=== PATIENT | male | born 1975 | race Two or more races ===

== ENCOUNTER 2025-06-03 12:12 | Inpatient (IN) | payer MEDICAID, SELFPAY ==
[2025-06-03] VITALS (12 sets, daily range): BP systolic 109–152; BP diastolic 73–111; PULSE 109–129; RESP 16–26; TEMP 37.6–39.3; O2SAT 95–100; BMI 24.3
--- NOTE | 2025-06-03 12:42 | XR_ITS ---
Examination: Duplex scan of the lower extremity, unilateral right Date and time of exam: 06/03/2025, 1:04 p.m. Technique: Duplex scan of the extremity veins using B-mode/grayscale imaging and Doppler spectral analysis and color flow Attention is directed to internal echogenicity, compression and augmentation involving these veins, color flow assessment, spectral analysis Indication: Right leg swelling for 4 days COMPARISON: None Findings: Major deep venous structures in the extremity demonstrate normal course and caliber. There is no evidence of deep vein thrombosis. Normal color flow and spectral analysis Impression: Negative for DVT..
[2025-06-03 13:05] LABS: Lactate (Lactic Acid) 3.1 mMol/L (0.4-2.0)
--- NOTE | 2025-06-03 13:14 | EDNOTE_ITS ---
<Statement entered by Pau Damon MD - 06/05/25 17:54> I, Pau Damon MD, have reviewed the history, exam, and assessment of the patient. I have evaluated the patient independently and agree with the plan of care documented by [ ]. All diagnostic studies were reviewed and discussed. I confirm the diagnosis as documented by the Resident. I was present during the Medical Decision Making for this patient. The patient's plan of care was created between myself and the Resident and consistent with our discussion of the patient's case. ED Fever RME/HPI General Chief Complaint: Fever Stated Complaint: FEVER & R) CALF PAIN X 4 DAYS Time Seen by Provider: 06/03/25 12:19 Arrival date/time: 06/03/25 12:12 RME / HPI RME / HPI Narrative: Patient is a 50-year-old male with a past medical history of hypertension, diabetes mellitus, and history of cigarette [id number]-year history who presented to the emergency room via private car with a chief complaint of pyrexia at home and calf pain for the over 4 day. Patient denied recent travel history via airplane of drive. No history of PE or clots. Patient enied trauma to leg or forgiegn object. denied chest pain or shortness of breath. Patient noted to have a blister that became a small open wound at the 5th digit. Venous doppler Negative CT w/ contrast of right lower extremity Related Data Home Medications ?Medication ?Instructions ?Recorded ?Confirmed metformin 850 mg tablet 850 mg PO BIDWM #0 tabs 01/29 10/12 (Glucophage) Allergies Allergy/AdvReac Type Severity Reaction Status Date / Time No Known Allergies Allergy Verified 06/03/25 12:15 Review of Systems Review of Systems Narrative Review of Systems: General appearance: NO weight change, NO fatigue, NO weakness, NO fever, NO chills, NO night sweats, No cough Skin: NO rash, NO itching, NO sores, NO moles, pain to lower extremity HEENT: NO Trauma, NO nausea, NO vomiting, NO visual changes, NO blurry vision, NO double vision, NO tinnitus, NO vertigo, NO ear discharge, NO rhinorrhea, NO stuffiness, NO sneezing, NO allergy, NO epistaxis. NO Hoarseness, NO sore throat, NO swollen neck. Cardiac: NO Palpitations, NO dyspnea on exertion, NO orthopnea, NO paroxysmal nocturnal dyspnea, NO edema Respiratory: NO Shortness of Breath, NO Wheezing, NO Cough, NO Sputum, NO hemoptysis GI:NO appetite, NO nausea, NO vomiting, NO dysphagia, NO changes in bowel frequency, NO stool color, NO diarrhea, NO constipation, NO hemetemesis, NO hemorrhoids, NO melena, NO hematechezia, NO abdominal pain, NO jaundice Renal: NO frequency, NO hesitancy, NO urgency, NO hematuria, NO nocturia, NO incontinence MSK: NO muscle weakness, NO gout, NO arthritis, NO muscle stiffness Neuro: NO headaches, NO tremors, NO weakness, NO paralysis, NO seizures, NO loss of consciousness, NO numbness. Hem: NO anemia, NO easy bruising/bleeding, NO petechiae, NO purpura Endo: NO heat/cold intolerance, NO excessive sweating, NO polyuria, NO polydipsia, NO polyphagia, NO thyroid problems, Yes diabetes Pysch: NO mood, NO anxiety, NO depression Physical Exam Narrative Physical exam: General Appearance: Alert & Oriented X3, well-nourished male who is lying in bed in mild distress,secondary to pain at the right lower extremity with erythema and tender to touch. Pulses 3+ HEENT: Skull symmetrical and atraumatic. Conjunctivae pin and moist. Pupils equal, round, reactive to light and accommodation (PERRL). External ear without lesion or discharge. Straight, nares patient, mucosa pink, no discharge. No thyroid nodule appreciated. No cervical lymphadenopathy. Cardio: Normal Rate and Rhythm with S1 and S2 heart sounds. No murmurs or extra heart sounds auscultated. No bruits on carotid auscultation. Lungs: Symmetric with good expansion. Chest and back non-tender. Breath sounds vesicular without crackles, wheezing or rhonchi Abdomen: Non-tender, Non-distended, Normal Reactive Bowel Sounds Neuro: Alert, cooperative, oriented to person, place, and time. Speech clear. CN grossly intact. Upper motor strength 5/5 and Lower motor strength 5/5. Sensation intact. Course Quality Measures none Orders Category Date Time Status Bedside Blood Glucose NOW Care 06/03/25 14:[address] Screening NOW Care 06/03/25 13:[address] lower leg RT w con Stat Exams 06/03/25 13:51 Ordered US venous doppler LE RT Stat Exams 06/03/25 12:42 Completed XR chest 1V portable Routine Exams 06/03/25 13:45 Taken Alcohol, Urine Routine Lab 06/03/25 13:08 Ordered B-Type Natriuretic Peptide Stat Lab 06/03/25 12:45 Completed Blood Culture (Lab) Stat Lab 06/03/25 12:59 Received CBC Stat Lab 06/03/25 12:45 Completed Comprehensive Metabolic Panel Stat Lab 06/03/25 12:45 Completed Drug Screen,Urine Routine Lab 06/03/25 13:08 Ordered ESR [Sed Rate (ESR)] Routine Lab 06/03/25 13:47 Ordered LDH (Lactate Dehydrogenase) Stat Lab 06/03/25 12:45 Completed Lactate (Lactic Acid) Stat Lab 06/03/25 12:45 Results Lipase Stat Lab 06/03/25 12:45 Completed Magnesium Stat Lab 06/03/25 12:45 Completed Partial Thromboplastin Time Stat Lab 06/03/25 12:45 Completed Phosphorous Stat Lab 06/03/25 12:45 Completed Procalcitonin Stat Lab 06/03/25 12:45 Completed Prothrombin Time with INR Stat Lab 06/03/25 12:45 Completed Troponin I Stat Lab 06/03/25 12:45 Completed Urinalysis, C/S if Indicated Stat Lab 06/03/25 12:42 Ordered Acetaminophen Tab [Tylenol ES Tab] Med 06/03/25 12:42 Discontinued 1,000 mg PO X1 ONE INSULIN LISPRO (AdmeLOG) [HumaLOG] Med 06/03/25 14:00 Discontinued 5 unit SC X1 ONE Ringers Lactated 1000 ml [Lactated Ringers] 1,000 ml Med 06/03/25 14:00 Stop Req IV 999 mls/hr Sodium Chloride 0.9% 1000 ml [Ns] 2,121 ml Med 06/03/25 12:42 Discontinued IV 2,121 mls/hr Vancomycin Pharmacy to Dose Med 06/03/25 13:15 Active 1 each IV QDAY PRN Vancomycin/Ns 1 gm Ivpb 200 ml Med 06/03/25 13:30 Active IV X1 cefTRIAXone/D5w 1gm IV premix [Rocephin/D5w 1gm IV Med 06/03/25 12:42 Di scontinued premix] 1 gm in 50 ml IV X1 Vital Signs Vital signs: Vital Signs Temperature 102.7 F H 06/03/25 12:31 Pulse Rate 129 H 06/03/25 12:31 Respiratory Rate 18 06/03/25 12:31 Blood Pressure 111/73 06/03/25 12:31 Pulse Oximetry (%) 98 06/03/25 12:31 Oxygen Delivery Method Room Air 06/03/25 12:31 Fever Patient data External records reviewed:: [facility] previous records Clinical information provided by:: patient and family Social determinants that could affect healthcare access:: none Patient has the following chronic illnesses:: HTN and diabetes mellitus type 2 How is presenting disease/condition affected by chronic disease/condition?: exacerbated by Evaluation data The following diagnostics were reviewed and interpreted by me:: lab results Lab and/or radiology exams considered but not ordered:: none Interpretation Summary: Concern for sepsis secondary to cellulitis with end organ damage of MURIEL Medications / Prescriptions Medications or Prescriptions considered but not ordered:: none Medication administrations:: Medication Administration History Vancomycin/Sodium Chloride (Vancomycin/Ns 1 Gm Ivpb) 200 mls @ 120 mls/hr IV X1 ONE Stop: 06/03/25 15:09 Lactated Ringer's (Lactated Ringers) 1,000 mls @ 999 mls/hr IV .Q1H1M ONE Stop: 06/03/25 15:00 Pharmacy Consult (Vancomycin Pharmacy To Dose 1 Each Each) 1 each IV QDAY PRN PRN Reason: PROTOCOL Stop: 07/03/25 13:14 Discontinued Medications Acetaminophen (Acetaminophen 500 Mg Tablet) 1,000 mg PO X1 ONE Stop: 06/03/25 12:43 Last Admin: 06/03/25 13:20 Dose: 1,000 mg Documented By: CATHERINE Ceftriaxone Sodium/Dextrose (Rocephin/D5w 1gm Iv Premix) 1 gm in 50 mls @ 100 mls/hr IV X1 ONE Stop: 06/03/25 13:11 Last Admin: 06/03/25 13:19 Dose: 100 mls/hr Documented By: CATHERINE Sodium Chloride (Ns) 2,121 mls @ 2,121 mls/hr 30 ml/kg infuse over 60 min (2121 ml) IV .Q1H ONE Stop: 06/03/25 13:41 Last Admin: 06/03/25 13:19 Dose: 2,121 mls/hr Documented By: CATHERINE Insulin Human Lispro (Insulin Lispro (Admelog) 1 Unit/0.01 Ml Unit) 5 unit SC X1 ONE Stop: 06/03/25 14:01 as above Consultations Consultation(s) initiated? (list below): Yes Consultation #1 (Physician, Specialty, Details): Hospitalist Time: 14:07 Diagnosis Fever Differential Diagnosis: cellulitis, viral infection and sepsis Most likely diagnosis given after review of the tests above:: Sepsis secondary to cellulitis w/ end organ damage of MURIEL Admission Indicated Admission indicated?: indicated Admission Request Was there a request for admission?: Yes Admission Attestation Admission request attestation: Discussed case with Dr. Yanes from Hospitalist service regarding admission. Discussed patients ED course, exam findings, labs, and radiology results. The Hospitalist accepts to accept the patient for admission. Disposition Plan Disposition Plan: Admit Discharge Plan Plan Patient Disposition: Admit Acute Care w/in Hospital Prescriptions/Referrals Prescriptions/Med Rec: No Action metformin [Glucophage] 850 MG tablet 850 mg PO BIDWM Qty: 0 Referrals: Levar Miller MD [Primary Care Provider, Family Practice] - In 1 week Problem List Clinical Impression: Sepsis, Cellulitis, Fever, MURIEL (acute kidney injury) Patient/Caregiver Discharge Instructions Print Language: Jordanian Stand Alone Forms: Pamela Award Info., Patient Portal Info Letter
[2025-06-03 13:15] LABS: Basophils # (Auto) 0.1 Thou/mm3 (0.0-0.2); Basophils % (Auto) 0 % (0-2.5); Eosinophils # (Auto) 0.1 Thou/mm3 (0.0-0.5); Eosinophils % (Auto) 0 % (0-10); Hematocrit 42.6 % (41.0-53.0); Hemoglobin 15.9 g/dL (13.5-16.0); Immature Granulocytes Auto 0.97 Thou/mm3 (0.00-0.00); Lymphocytes # (Auto) 0.9 Thou/mm3 (1.0-4.8); Lymphocytes % (Auto) 3 % (10-50); Mean Corpuscular HGB Conc 37.3 g/dl (31.0-37.0); Mean Corpuscular Hemoglobin 31.6 pg (25.0-35.0); Mean Corpuscular Volume 85 fL (80-100); Monocytes # (Auto) 1.4 Thou/mm3 (0.0-0.8); Monocytes % (Auto) 5 % (0-12); Neutrophils # (Auto) 24.3 Thou/mm3 (1.8-7.7); Neutrophils % (Auto) 88 % (37-80); Nucleated Red Blood Cell # 0.00 Thou/mm3 (0.00-0.00); Nucleated Red Blood Cell % 0 /100 WBC (0); Platelet Count 191 Thou/mm3 (140-440); RDW Standard Deviation 43.4 fL (35.1-43.9); Red Blood Count 5.03 Miln/mm3 (4.50-5.90); White Blood Count 27.7 Thou/mm3 (3.8-10.6)
[2025-06-03] MEDS: cefTRIAXone/D5w 1gm IV premix 1 GM/50 ML BAG IV (13:19)
[2025-06-03] MEDS: SODIUM CHLORIDE 0.9% 1000 ML 2,121 ML 2121 ML IV (13:19)
[2025-06-03] MEDS: ACETAMINOPHEN 500 MG TABLET 1000 MG PO (13:20)
[2025-06-03 13:23] LABS: INR 1.1 (0.9-1.3); Partial Thromboplastin Time 33.9 Seconds (22.0-36.0); Prothrombin Time 11.2 Seconds (9.0-12.2)
[2025-06-03 13:27] LABS: B-Type Natriuretic Peptide 306 pg/mL (0-100)
--- NOTE | 2025-06-03 13:45 | XR_ITS ---
CLINICAL INDICATION: sepsis alert TECHNIQUE: XR chest 1V portable, 06/03/2025 at 2:53 p.m. COMPARISON: Chest radiographs 02/10/2014 FINDINGS: The cardiomediastinal silhouette larger compared to prior radiographs, in part due to magnification by the portable technique. No evidence for acute congestive heart failure. Mild elevation of the right hemidiaphragm noted. No airspace opacities suggestive of pneumonia. No mass detected. No pleural effusion or pneumothorax. No acute osseous abnormality detected. IMPRESSION: No radiographic evidence for pneumonia or other acute cardiopulmonary abnormality. - This report was generated utilizing speech recognition software. -
[2025-06-03 13:54] LABS: Alanine Aminotransferase 22 U/L (10-49); Albumin, Serum 3.7 gm/dL (3.5-5.0); Albumin/Globulin Ratio 1.5 (1.2-2.2); Alkaline Phosphatase 124 U/L (46-116); Anion Gap 11 (7-16); Aspartate Amino Transferase 23 U/L (0-34); BUN/Creatinine Ratio 17 Ratio (12-20); Bilirubin,Total 1.9 mg/dL (0.3-1.2); Blood Urea Nitrogen 24 mg/dL (9-23); Calcium 8.4 mg/dL (8.3-10.6); Calcium (Corrected) 8.6 mg/dL (8.5-10.1); Carbon Dioxide 20.8 mMol/L (20.0-31.0); Chloride 93 mMol/L (98-107); Creatinine (Component) 1.4 mg/dL (0.6-1.3); Estimated Creatinine Clearance 64.5 mL/min (>60); Globulin 2.4 gm/dL (2.3-3.5); LDH (Lactate Dehydrogenase) 237 U/L (120-246); Lipase 25 U/L (12-53); Magnesium 1.7 mg/dL (1.6-2.6); Osmolality,Calculated 276 (275-295); Phosphorous 2.4 mg/dL (2.4-5.1); Potassium 4.7 mMol/L (3.4-5.1); Sodium 125 mMol/L (136-145); Total Protein 6.1 gm/dL (5.7-8.2); eGFR > 60 See Note
[2025-06-03 13:55] LABS: Glucose 477 mg/dL (74-106)
[2025-06-03 13:56] LABS: Troponin I 0.188 ng/mL (0.0-0.045)
[2025-06-03 13:57] LABS: Procalcitonin 93.12 ng/ml (0.0-0.49)
[2025-06-03] MEDS: VANCOMYCIN/NS 1 GM IVPB 200 ML IV (14:05)
[2025-06-03] MEDS: INSULIN LISPRO (AdmeLOG) 1 UNIT/0.01 ML UNIT 5 UNIT SC (14:15)
--- NOTE | 2025-06-03 14:43 | EKG_ITS ---
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1975 Requested By: Haider Clark Order Number: [id number] Reading MD: Haider Clark Measurements Intervals [place] Rate: 118 P: 80 ME: 136 QRS: -67 QRSD: 115 T: 103 QT: 399 QTc: 559 Interpretive Statements SINUS TACHYCARDIA POSSIBLE LEFT ATRIAL ENLARGEMENT [-0.1mV P-WAVE IN V1/V2] LOW QRS VOLTAGE IN PRECORDIAL LEADS [QRS DEFLECTION < 1.0 mV IN CHEST LEADS] RIGHT BUNDLE BRANCH BLOCK [120+ ms QRS DURATION, UPRIGHT V1, 40+ ms S IN I/aVL/V4/V5/V6] LEFT ANTERIOR FASCICULAR BLOCK [QRS AXIS <= -45, QR IN I, RS IN II] POSSIBLE ANTERIOR MYOCARDIAL INFARCTION , PROBABLY OLD [30 ms Q WAVE IN V3/V4, OR R < 0.2 mV IN V4] No previous ECG available for comparison /store/S0/[id number]/[id number].pdf
[2025-06-03 14:45] LABS: Sed Rate (ESR) 8 mm/hr (0-15)
[2025-06-03] MEDS: ONDANSETRON INJ 2 MG/ML INJ 2 ML 4 MG IVP (15:06)
[2025-06-03] MEDS: HYDROmorphone INJ 2 MG/ML VIAL 0.4 MG IVP ×2 (15:07→20:58)
[2025-06-03] MEDS: HEPARIN SOD INJ 5000 UNIT/ML VIAL SC ×2 (15:11→22:26)
--- NOTE | 2025-06-03 15:12 | ESHP_ITS ---
<Statement entered by Parth Robison MD - 06/03/25 17:09> 50-year-old male with significant past medical history of diabetes mellitus, insulin-dependent, recently diagnosed with bladder tumor, unsure of the diagnosis presented to the hospital with chief complaints of swelling and redness in the right lower extremity with fever since 3 days. Patient reported that he was absolutely normal 3 days ago, then developed sudden onset of swelling, pain and redness in the right lower extremity and fever. Took Tylenol but the pain and the fever did not subside and persisted for which patient came to the hospital for further management. Also reported that he is having bladder incontinence since last 4 days. In the ED, patient noted to have temperature of 102.2 ?F, noted to have leukocytosis, WBC 27.7, sodium 125, chloride 93, BUN 24, creatinine 1.4, glucose 277, lactate 3.1, total bilirubin 1.9, troponin 0.188, procalcitonin 93.12, corrected sodium is 134. Patient is admitted in the hospital for sepsis secondary to right lower extremity cellulitis, uncontrolled diabetes mellitus, lactic acidosis, MURIEL. Patient was given 2.1 L of bolus fluid in the ED per sepsis protocol, started on maintenance IV fluids, started on Zosyn and doxycycline. CT of lower extremity is ordered and is negative for osteomyelitis and soft tissue abscess. Doppler of the lower extremities negative for DVT. A bladder ultrasound was done that showed abnormal diffuse bladder wall thickening that could represent a neurogenic bladder or sequela of infection versus diffuse infiltrative neoplasm. Will recommend patient to follow-up on outpatient basis. I have personally seen and examined the patient, agree with residents assessment and plan Patient plan of care was discussed with the attending physician, Dr. Demetra Robison, PGY2 Documentation for date of: 06/03/25 HPI History of Present Illness Chief complaint: Right leg pain History of present illness: 50-year-old male with a history of type 2 diabetes mellitus and hypertension presents with right lower leg pain, redness, and swelling for the past 4 days. The patient reports the area began as a blister on the right fifth toe that developed around the same time as the pain. He denies any trauma, recent travel, or insect bites. He describes the pain as worse with standing or walking. No drainage noted today, though there was some pus initially. He reports fevers and chills at home over the same period. No nausea, vomiting, chest pain, or abdominal pain. He denies dizziness or confusion. No history of prior similar infections or hospitalizations. He has type 2 diabetes, managed with Basaglar 60 units twice daily, though he misses doses occasionally and is unsure of his other medications. No recent antibiotic use. Denies recent alcohol or drug use; quit smoking 6 years ago after a [id number] history. In the ED, he was febrile (102.7?F), tachycardic (HR 129), and mildly hypotensive but responsive to fluids. WBC 27.7, lactate 3.12, sodium 125 (corrected 134), glucose 407, creatinine 1.4, and troponin 0.188. Venous Doppler negative for DVT. Blood cultures were drawn; patient received fluids, Tylenol, and empiric IV antibiotics for sepsis secondary to cellulitis. ROS: Constitutional: +fever, +chills, no weight loss Skin: +right leg redness, swelling, warmth, no drainage today HEENT: No headache, vision, or hearing changes Cardiac: No chest pain or palpitations Respiratory: +occasional nocturnal SOB, no cough GI: No nausea, vomiting, or abdominal pain : No dysuria or hematuria, normal urine output Neuro: No weakness, numbness, or confusion Endocrine: +poorly controlled diabetes, missed insulin doses Psych: +anxiety Past Medical History: * Type 2 diabetes mellitus (poorly controlled) * Hypertension Past Surgical History: * Remote left foot surgery (details unclear) Medications: * Basaglar (insulin glargine) 60 units BID * Unknown blood pressure medication * Pending med rec's Allergies: * No known drug allergies Social History: * Former smoker (42 pack-years, quit 6 years ago) * Denies current alcohol or illicit drug use (remote meth use years ago) * Lives independently at home Family History: * Non-contributory Exam Vital Signs Temp Pulse Resp BP Pulse Ox O2 Del Method 102.5 F H 109 H 18 138/98 H 100 Room Air 06/03/25 14:46 06/03/25 14:59 06/03/25 14:59 06/03/25 14:46 06/03/25 14:59 06/03/25 14:46 Narrative Exam General: Alert, oriented, appears uncomfortable but in no acute distress HEENT: Mucous membranes moist, no JVD or adenopathy Heart: Tachycardic, regular rhythm, no murmurs, rubs, or gallops Lungs: Clear to auscultation bilaterally Abdomen: Soft, non-tender, non-distended, normoactive bowel sounds Extremities: * Right lower leg: erythematous, warm, and tender from mid-calf to ankle * No fluctuance, crepitus, or drainage; small healed blister at 5th toe * Pulses palpable, no cyanosis * Left leg normal * Right arm with abrasion and mild pus leak Neuro: CN II?XII intact, motor and sensory grossly intact Skin: Erythematous area as above, borders marked for monitoring Psych: Calm, cooperative, appropriate affect Results: Labs 06/03/25 12:45 06/03/25 12:45 Labs: Short CBC 06/03/25 Range/Units 12:45 WBC 27.7 H (3.8-10.6) Thou/mm3 Hgb 15.9 (13.5-16.0) g/dL Hct 42.6 (41.0-53.0) % Plt Count 191 (140-440) Thou/mm3 BMP 06/03/25 12:45 Sodium 125 L Potassium 4.7 Chloride 93 L Carbon Dioxide 20.8 BUN 24 H Creatinine 1.4 H Glucose 477 H* Calcium 8.4 Cardiac Enzymes 06/03/25 Range/Units 12:45 Troponin I 0.188 H* (0.0-0.045) ng/mL Liver Function 06/03/25 Range/Units 12:45 Total Bilirubin 1.9 H (0.3-1.2) mg/dL AST 23 (0-34) U/L ALT 22 (10-49) U/L Alkaline Phosphatase 124 H (46-116) U/L Albumin 3.7 (3.5-5.0) gm/dL Quality Measures Quality Measures VTE prophylaxis Medications Home Medications and Allergies Home Medications ?Medication ?Instructions ?Recorded ?Confirmed ?Type metformin 850 mg tablet 850 mg PO BIDWM #0 tabs 01/29 314 History (Glucophage) Allergies Allergy/AdvReac Type Severity Reaction Status Date / Time No Known Allergies Allergy Verified 06/03/25 12:15 Visit Medications Acetaminophen (Acetaminophen 325 Mg Tablet) 650 mg PO Q6H PRN PRN Reason: Fever >100.4 or Pain 1-3 Stop: 07/03/25 14:36 Dextrose (Dextrose 50%-Water Inj 50 Ml Syringe) 25 ml IV Q15MIN PRN PRN Reason: BG 50-70 responsive npo pt Stop: 07/03/25 14:47 Dextrose (Dextrose 50%-Water Inj 50 Ml Syringe) 50 ml IV Q15MIN PRN PRN Reason: BG <50 OR BG <70 & pt unresponsive Stop: 07/03/25 14:47 Glucagon (Glucagon Inj 1 Mg Vial) 1 mg IM Q15MIN PRN PRN Reason: BG <70, and no IV access Heparin Sodium (Porcine) (Heparin Sod Inj 5000 Unit/Ml Vial) 5,000 unit SC Q8HR ERICH Stop: 06/17/25 14:59 Hydromorphone HCl (Hydromorphone Inj 2 Mg/Ml Vial) 0.4 mg IVP Q4H PRN PRN Reason: PAIN SCALE 7-10 (Severe Stop: 06/08/25 14:42 Last Admin: 06/03/25 15:07 Dose: 0.4 mg Sodium Chloride (Ns) 1,000 mls @ 75 mls/hr IV .[id number] ERICH Stop: 07/03/25 14:44 Doxycycline Hyclate 100 mg/ (Sodium Chloride) 100 mls @ 100 mls/hr IV BID ERICH Stop: 06/10/25 20:59 Piperacillin Sod/Tazobactam (Sod 4.5 gm/ Sodium Chloride) 100 mls @ 25 mls/hr IV Q8HR ERICH; Protocol Stop: 06/10/25 21:59 Piperacillin Sod/Tazobactam (Sod 4.5 gm/ Sodium Chloride) 100 mls @ 200 mls/hr IV X1 ONE; Protocol Stop: 06/03/25 15:44 Insulin Degludec (Insulin Degludec 5 Unit/0.05 Ml (Per 5 Units)) 20 unit SC [facility] Stop: 07/03/25 20:59 Insulin Human Lispro (Insulin Lispro (Admelog) 1 Unit/0.01 Ml Unit) 0 unit SC AC ERICH; Protocol Stop: 07/03/25 16:59 Ondansetron HCl (Ondansetron Inj 2 Mg/Ml Inj 2 Ml) 4 mg IVP Q6H PRN; Protocol PRN Reason: NAUSEA OR VOMITING Stop: 07/03/25 14:36 Last Admin: 06/03/25 15:06 Dose: 4 mg Oxycodone/Acetaminophen (Oxycodone/Apap 5/325 Tablet) 1 tab PO Q6H PRN PRN Reason: PAIN SCALE 4-6 (Moderate Stop: 06/08/25 14:42 Pantoprazole Sodium (Pantoprazole 40 Mg Tablet) 40 mg PO QDAY ERICH Stop: 07/04/25 08:59 Sennosides (Senna Tablet) 1 tab PO QDAY PRN; Protocol PRN Reason: constipation Stop: 07/03/25 14:36 Discontinued Medications Acetaminophen (Acetaminophen 500 Mg Tablet) 1,000 mg PO X1 ONE Stop: 06/03/25 12:43 Last Admin: 06/03/25 13:20 Dose: 1,000 mg Ceftriaxone Sodium/Dextrose (Rocephin/D5w 1gm Iv Premix) 1 gm in 50 mls @ 100 mls/hr IV X1 ONE Stop: 06/03/25 13:11 Last Infusion: 06/03/25 15:05 Dose: Infused Sodium Chloride (Ns) 2,121 mls @ 2,121 mls/hr 30 ml/kg infuse over 60 min (2121 ml) IV .Q1H ONE Stop: 06/03/25 13:41 Last Infusion: 06/03/25 15:05 Dose: Infused Vancomycin/Sodium Chloride (Vancomycin/Ns 1 Gm Ivpb) 200 mls @ 120 mls/hr IV X1 ONE Stop: 06/03/25 15:09 Last Admin: 06/03/25 14:05 Dose: 120 mls/hr Lactated Ringer's (Lactated Ringers) 1,000 mls @ 999 mls/hr IV .Q1H1M ONE Stop: 06/03/25 15:00 Vancomycin/Sodium Chloride (Vancomycin/Ns 1 Gm Ivpb) 200 mls @ 120 mls/hr IV Q12H ERICH Stop: 06/10/25 21:59 Insulin Human Lispro (Insulin Lispro (Admelog) 1 Unit/0.01 Ml Unit) 5 unit SC X1 ONE Stop: 06/03/25 14:01 Last Admin: 06/03/25 14:15 Dose: 5 unit Morphine Sulfate (Morphine Sulf Inj 4 Mg/Ml Vial) 2 mg IVP X1 ONE Stop: 06/03/25 15:07 Pharmacy Consult (Vancomycin Pharmacy To Dose 1 Each Each) 1 each IV QDAY PRN PRN Reason: PROTOCOL Stop: 07/03/25 13:14 Assessment & Plan Plan 50M with PMH of T2DM and HTN presenting with sepsis secondary to right lower extremity cellulitis. Course complicated by hyperglycemia (glucose 407), hyponatremia (corrected 134), MURIEL (Cr 1.4), lactic acidosis (3.12), and elevated troponin likely due to demand ischemia. CT leg consistent with cellulitis without abscess or osteomyelitis. Bladder wall thickening noted incidentally likely infectious or neurogenic, but will monitor and correlate with UA. # Sepsis secondary to cellulitis RLE cellulitis without abscess or osteomyelitis; meets SIRS criteria with fever, tachycardia, leukocytosis, and elevated lactate. Plan: * Start Zosyn 4.5 g IV q6h * Add Doxycycline 100 mg PO/IV BID for MRSA/atypical coverage * Trend lactate q4h until <2.0 * Monitor vitals q4h, maintain MAP >65 * Repeat CBC, BMP, and LFTs daily * Follow-up blood cultures * Wound care consult # Hyponatremia Na 125 likely pseudohyponatremia from hyperglycemia; corrected Na 134. Plan: * Manage hyperglycemia as below * Recheck BMP in AM # Type 2 Diabetes Mellitus # Hyperglycemia Glucose 407; poor outpatient adherence and unclear regimen. Plan: * Hold Basaglar (home insulin) * Start Glargine 30 units SQ nightly will adjust accordingly tomorrow morning * Insulin lispro sliding scale ACHS * POC glucose AC/HS * Diabetic diet (carb-controlled) # Acute Kidney Injury Cr 1.4; likely pre-renal due to sepsis/dehydration. Plan: * Continue NS 75 mL/hr maintenance * Avoid nephrotoxins and NSAIDs * Monitor I&O and daily BMP # Lactic Acidosis Lactate 3.12 from sepsis. Plan: * Continue fluids, antibiotics, and infection source control * Recheck lactate q4h until <2.0 # Elevated Troponin Likely demand ischemia from sepsis/tachycardia; no chest pain. Plan: * Trend troponin q4h ? 2 * EKG if PRN symptoms * Monitor on telemetry # Bladder Wall Thickening Incidentally noted on imaging; possibly inflammatory or neurogenic. Plan: * UA and urine culture to rule out infection * Monitor for urinary retention * Consider outpatient urology referral after sepsis resolves # Hypertension Chronic, stable, home regimen unclear. Plan: * Hold home antihypertensives until medication reconciliation * Resume once verified Health Maintenance: Diet: Carbohydrate-controlled (diabetic) Fluids: NS 75 mL/hr DVT Prophylaxis: Heparin 5,000 U SQ q8h GI Prophylaxis: PPI Code Status: Full Code Disposition: Admit to telemetry for sepsis management and close glucose monitoring ----- Plan discussed with attending physician Dr. Mccrary and senior resident Dr. Ricki Clark MD PGY-1 Internal Medicine Attending Provider Attestation/Addendum I have seen and examined the patient. I was physically present for the william portions of the services provided including history, physical exam, diagnosis, treatment plans and orders. I agree with assessment and plan of care as documented by residents. After examination of the patient and review of the clinical data I feel that this patient needs admission to the hospital for further treatment/evaluation. Even though this this note was carefully revised there may still be minor errors in door installer due to voice recognition software. Jessica Mccrary MD
[2025-06-03] MEDS: SODIUM CHLORIDE 0.9% 1000 ML 1,000 ML 75 ML IV (15:13)
[2025-06-03 15:26] LABS: Collection Type, Urine Clean Catch; Squamous Epithelial Cell,Urine 0 /hpf (0-5)
--- NOTE | 2025-06-03 15:46 | XR_ITS ---
Examination: CT right lower extremity, without contrast. 2-D sagittal reconstructions. 2-D coronal reconstructions. 3-D reconstructions. Date and time of exam: June 03, 2025, 1535 hours INDICATIONS: Right lower leg pain and swelling today CTDI: vol (mGy): 10.2 DLP: (mGycm): 1046 Technique: Multiple 1.25 mm axial sections of the right lower leg without contrast have been obtained. 2-D sagittal and coronal reconstructions have been obtained. 3-D reconstructions have been obtained. Low dose protocols were performed. One or more of the following dose reduction techniques were used; automated exposure control, adjustment of the mA and/or KV according to patient size, use of iterative reconstruction technique. Findings: Edema in the subcutaneous fatty tissue surrounding the thigh, more severe lateral to the distal femur and more severe surrounding the tibia fibula No soft tissue abscess No cortical bone destruction No endosteal scalloping Small knee effusion IMPRESSION: Cellulitis pattern lower extremity more prominent surrounding the tibia and fibula No soft tissue abscess Negative for osteomyelitis
--- NOTE | 2025-06-03 15:51 | XR_ITS ---
EXAMINATION: US bladder, 06/03/2025 at 4:27 p.m. HISTORY: to look for bladder tumor, COMPARISON: None FINDINGS: Sonographic imaging performed of the bladder. Bladder: Prevoid bladder volume is 336.2 cc. Bladder demonstrates diffuse irregular lobulated mural thickening with lobulations, measuring up to 7 mm in thickness. No discrete focal mass. No calculi. No evidence for bladder diverticulum. Bilateral ureteral jets were not visualized after 2 minutes. Other: The prostate gland measures 3.9 x 2.7 x 3.9 cm with a volume of approximately 21.4 cc. No pelvic ascites. IMPRESSION: Abnormal diffuse bladder wall thickening of uncertain etiology. This potentially could represent a neurogenic bladder or sequela of infection versus diffuse infiltrative neoplasm. No discrete focal mass otherwise. No bladder calculi. Normal prostate size.
[2025-06-03 15:55] LABS: Alcohol, Urine Negative (Negative); Amphetamine/Methamp Scrn,U Positive (Negative); Barbiturate Screen,Urine Negative (Negative); Benzodiazepines Screen,Urine Negative (Negative); Benzoylecgonine Screen, Ur Negative (Negative); Fentanyl Screen,Urine Negative (Negative); Opiate Screen,Urine Negative (Negative); THC Screen,Urine Negative (Negative)
[2025-06-03 16:05] LABS: Reflex Lactate? Y
[2025-06-03 16:15] LABS: Bilirubin,Urine Negative (Negative); Blood,Urine 2+ (Negative); Clarity,Urine Clear (Clear/Hazy); Color,Urine Yellow (Lt Yel-Yel); Culture Indicated,Urine Not Indicated; Glucose, Urine 4+ (Negative); Ketones,Urine 1+ (Negative); Leukocyte Esterase,Urine Negative (Negative); Nitrite,Urine Negative (Negative); PH,Urine 6.5 (5.0-7.0); Protein,Urine 2+ (Neg - Trace); RBC,Urine 3 /hpf (0-3); Specific Gravity,Urine 1.036 (1.001-1.035); Urobilinogen,Urine 2.0 mg/dL (0.0-1.0); WBC,Urine 1 /hpf (0-5)
[2025-06-03] MEDS: PIPER/TAZO INJ 4.5 GM in SODIUM CHLORIDE 0.9% (POP) 100 ML IV ×2 (16:17→22:25)
[2025-06-03 16:26] LABS: Lactate (Lactic Acid) 3.3 mMol/L (0.4-2.0)
[2025-06-03 16:58] LABS: Troponin I 0.170 ng/mL (0.0-0.045)
[2025-06-03 18:05] LABS: Creatine Kinase 122 U/L (34-171)
[2025-06-03] MEDS: INSULIN LISPRO (AdmeLOG) 1 UNIT/0.01 ML UNIT SC (18:38)
[2025-06-03 19:23] LABS: Reflex Lactate? Y
--- NOTE | 2025-06-03 20:15 | PC.NURSE ---
PT ARRIVED TO UNIT ALERT AND ORIENTED X3.
[2025-06-03] MEDS: DOXYCYCLINE INJ 100 MG in SODIUM CHLORIDE 0.9% (POP) 100 ML IV (20:50)
[2025-06-03] MEDS: INSULIN DEGLUDEC 5 UNIT/0.05 ML (PER 5 UNITS) 30 UNIT SC (20:57)
[2025-06-03 21:53] LABS: Lactate (Lactic Acid) 2.7 mMol/L (0.4-2.0)
[2025-06-04] VITALS (12 sets, daily range): BP systolic 119–130; BP diastolic 82–96; PULSE 71–121; RESP 16–99; TEMP 36.3–37.1; O2SAT 95–97; BMI 24.4
[2025-06-04 00:49] LABS: Reflex Lactate? Y
[2025-06-04 00:52] LABS: Lactate (Lactic Acid) 2.2 mMol/L (0.4-2.0)
[2025-06-04 03:50] LABS: Reflex Lactate? Y
[2025-06-04 05:16] LABS: Basophils # (Auto) 0.1 Thou/mm3 (0.0-0.2); Basophils % (Auto) 0 % (0-2.5); Eosinophils # (Auto) 0.1 Thou/mm3 (0.0-0.5); Eosinophils % (Auto) 0 % (0-10); Hematocrit 38.1 % (41.0-53.0); Hemoglobin 13.7 g/dL (13.5-16.0); Immature Granulocytes Auto 0.18 Thou/mm3 (0.00-0.00); Lymphocytes # (Auto) 1.2 Thou/mm3 (1.0-4.8); Lymphocytes % (Auto) 4 % (10-50); Mean Corpuscular HGB Conc 36.0 g/dl (31.0-37.0); Mean Corpuscular Hemoglobin 30.9 pg (25.0-35.0); Mean Corpuscular Volume 86 fL (80-100); Monocytes # (Auto) 1.9 Thou/mm3 (0.0-0.8); Monocytes % (Auto) 7 % (0-12); Neutrophils # (Auto) 23.4 Thou/mm3 (1.8-7.7); Neutrophils % (Auto) 87 % (37-80); Nucleated Red Blood Cell # 0.00 Thou/mm3 (0.00-0.00); Nucleated Red Blood Cell % 0 /100 WBC (0); Platelet Count 148 Thou/mm3 (140-440); RDW Standard Deviation 44.8 fL (35.1-43.9); Red Blood Count 4.43 Miln/mm3 (4.50-5.90); White Blood Count 26.8 Thou/mm3 (3.8-10.6)
[2025-06-04 05:17] LABS: Lactic Acid, 3 HR 2.1 mMol/L (0.4-2.0)
[2025-06-04 05:35] LABS: Glucose Estimated Average 260 mg/dL (80-131); Hemoglobin A1C 10.7 % Hgb (4.8-6.0)
[2025-06-04] MEDS: SODIUM CHLORIDE 0.9% 1000 ML 1,000 ML 75 ML IV (05:45)
[2025-06-04] MEDS: HEPARIN SOD INJ 5000 UNIT/ML VIAL SC ×3 (05:45→22:41)
[2025-06-04] MEDS: PIPER/TAZO INJ 4.5 GM in SODIUM CHLORIDE 0.9% (POP) 100 ML IV ×3 (05:45→23:35)
[2025-06-04 06:14] LABS: Alanine Aminotransferase 19 U/L (10-49); Albumin, Serum 3.2 gm/dL (3.5-5.0); Albumin/Globulin Ratio 1.5 (1.2-2.2); Alkaline Phosphatase 106 U/L (46-116); Anion Gap 9 (7-16); Aspartate Amino Transferase 19 U/L (0-34); BUN/Creatinine Ratio 18 Ratio (12-20); Bilirubin,Total 1.3 mg/dL (0.3-1.2); Blood Urea Nitrogen 23 mg/dL (9-23); Calcium 8.0 mg/dL (8.3-10.6); Calcium (Corrected) 8.6 mg/dL (8.5-10.1); Carbon Dioxide 23.8 mMol/L (20.0-31.0); Chloride 101 mMol/L (98-107); Creatinine (Component) 1.3 mg/dL (0.6-1.3); Estimated Creatinine Clearance 69.5 mL/min (>60); Globulin 2.2 gm/dL (2.3-3.5); Glucose 285 mg/dL (74-106); Magnesium 1.8 mg/dL (1.6-2.6); Osmolality,Calculated 281 (275-295); Phosphorous 2.5 mg/dL (2.4-5.1); Potassium 4.3 mMol/L (3.4-5.1); Sodium 134 mMol/L (136-145); Thyroid Stimulating Hormone 0.82 uIU/mL (0.55-4.78); Total Protein 5.4 gm/dL (5.7-8.2); eGFR > 60 See Note
[2025-06-04] MEDS: INSULIN LISPRO (AdmeLOG) 1 UNIT/0.01 ML UNIT SC ×4 (07:26→22:45)
[2025-06-04] MEDS: PANTOPRAZOLE 40 MG TABLET PO (08:45)
[2025-06-04] MEDS: DOXYCYCLINE INJ 100 MG in SODIUM CHLORIDE 0.9% (POP) 100 ML IV (08:46)
--- NOTE | 2025-06-04 10:07 | ECHO_ITS ---
Patient Info Name: Isra Ramirez Age: 50 years : 1975 Gender: Male Ht: 175 cm Wt: 75 kg BSA: 1.92 m2 BP: 124 / 92 mmHg HR: 112 bpm Exam Date: 06/04/2025 11:30 AM Admit Date: 06/03/2025 Site: [facility] Room Number: [id number] Patient Status: I Exam Type: CA echo doppler complete Mds Manager: Antonia Noonan Ordering Physician: Parth Robison Study Info Indications Meth use - Primary Location: S3SX Left Ventricular Outflow Tract Name Value Normal LVOT 2D LVOT Diameter 2.1 cm LVOT Doppler LVOT Peak Velocity 98 cm/s LVOT Mean Gradient 2 mmHg LVOT VTI 12 cm LVOT VTI/AV VTI Ratio 0.7 LVOT Stroke Volume 41 ml Pulmonic Valve Name Value Normal PV Doppler PV Peak Velocity 92 cm/s PV Regurgitation Doppler MI Peak End Diastolic Velocity 186 cm/s Mitral Valve Name Value Normal MV Doppler MV Decel Cloud 556 cm/s2 MV PHT 25 ms MV Area (PHT) 8.9 cm2 4.0-5.0 MV Diastolic Function MV E Peak Velocity 47 cm/s MV A Peak Velocity 61 cm/s MV E/A 0.8 MV Annular TDI MV Lateral e' Velocity 5.8 cm/s MV E/e' (Lateral) 8.1 Tricuspid Valve Name Value Normal TV Regurgitation Doppler TR Peak Velocity 321 cm/s Estimated PAP/RSVP RA Pressure 8 mmHg <=5 PA Systolic Pressure 49 mmHg <36 RV Systolic Pressure 49 mmHg <36 Aortic Valve Name Value Normal AV 2D/MM AV Cusp Sep (MM) 1.2 cm AV Doppler AV Peak Velocity 122 cm/s AV Mean Gradient 3 mmHg AV VTI 17 cm AV Area (Cont Eq VTI) 2.4 cm2 >=3.0 AV Area (Cont Eq Kevin) 2.8 cm2 AV DI (Kevin) 0.80 AV Regurgitation 2D LVOT Area 3.5 cm2 Ventricles Name Value Normal LV Dimensions 2D/MM IVS Diastolic Thickness (2D) 1.5 cm 0.6-1.0 LVID Diastole (2D) 4.6 cm 4.2-5.8 LVIW Diastolic Thickness (2D) 1.4 cm 0.6-1.0 LVID Systole (2D) 3.2 cm 2.5-4.0 LVOT Diameter 2.1 cm LV Mass (2D Cubed) 270.62 g 88.00-224.00 LV Mass Index (2D Cubed) 141 g/m2 49-115 Relative Wall Thickness (2D) 0.61 <=0.42 IVS/LVIW Diastolic Thickness (2D) 1.07 0.00-1.50 LV Fractional Shortening/Ejection Fraction 2D/MM LV Fractional Shortening (2D) 30 % 25-43 LV EF (2D Teichholz) 58 % LV Diastolic Volume (4C MOD) 137 ml LV EF (4C MOD) 38 % LV Diastolic Volume (2C MOD) 124 ml LV EF (2C MOD) 45 % LV Diastolic Volume (BP MOD) 132 ml 62-150 LV Diastolic Volume Index (BP MOD) 69 ml/m2 34-74 LV Systolic Volume (BP MOD) 79 ml 21-61 LV Systolic Volume Index (BP MOD) 41 ml/m2 11-31 LV EF (BP MOD) 40 % 52-72 LV Diastolic Length (4C) 7.8 cm LV Systolic Length (4C) 7.7 cm LV Stroke Volume (4C MOD) 53 ml Atria Name Value Normal LA Dimensions LA Volume (4C A-L) 52 ml LA Volume (BP A-L) 58 ml Left Ventricle Left ventricular chamber dimension is normal. Left ventricular systolic function is severely reduced with an ejection fraction by Biplane Method of Discs of 40 %. There is mild concentric hypertrophy noted in the left ventricle. The inferoseptal wall, and anterolateral wall are hypokinetic. The inferior wall, anterior wall, apical anterior wall, basal anteroseptal, mid anteroseptal, basal inferolateral wall, and mid inferolateral wall are not scored. Left ventricular segmental wall motion is abnormal. There is grade III diastolic dysfunction in the left ventricle. Right Ventricle Right ventricular chamber dimension is moderately enlarged. Right ventricular systolic function is reduced. Flattening of the ventricular septum in mid to late systole consistent with right ventricular volume overload. Left Atrium Left atrial chamber dimension is moderately enlarged. Right Atrium Right atrial chamber dimension is moderately enlarged. Aortic Valve The aortic valve is trileaflet. There is no aortic valve sclerosis. There is no aortic valve stenosis with a peak velocity of 122 cm/s, mean gradient of 3 mmHg, and aortic valve area of 2.4 cm2. There is no aortic valve regurgitation. Pulmonic Valve The pulmonic valve is normal. There is no pulmonic valve stenosis. There is moderate pulmonic regurgitation. Mitral Valve The mitral valve has normal leaflets. There is no mitral valve stenosis. There is mild to moderate mitral valve regurgitation. Tricuspid Valve The tricuspid valve leaflets are normal. There is no tricuspid valve stenosis. There is moderate tricuspid valve regurgitation. Severe pulmonary hypertension, estimated pulmonary arterial systolic pressure is 49 mmHg and systemic blood pressure of 124 mmHg in systole. Pericardium/Pleural The pericardium appears normal. There is no and trivial pericardial effusion. No tamponade. No pleural effusion visualized. Inferior Vena Cava Normal inferior vena cava with >50% collapse upon inspiration consistent with normal right atrial pressure, 8 mmHg. Aorta The aortic measurements are indexed to age and body surface area. The aortic root at the sinus of Valsalva is not well visualized. The prox ascending aorta is not well visualized. Summary 1. Left ventricle size is normal and systolic function is severely reduced. Estimated ejection fraction is 25-30%. There is grade III diastolic dysfunction. There is mild concentric hypertrophy noted. 2. Right ventricle chamber size is moderately enlarged and systolic function is mildly reduced. Estimated RVSP moderately elevated is 49 mmHg. 3. Flattening of the ventricular septum in mid to late systole consistent with right ventricular volume overload. 4. There is mild to moderate mitral valve regurgitation. 5. There is moderate tricuspid valve regurgitation. mild pulmonary regurgitation. 6. The left atrium is moderately enlarged. The right atrium is moderately enlarged. 7. There is no and trivial pericardial effusion. No tamponade. Report Signatures Finalized by Ramon Swartz on 06/04/2025 04:08 PM
[2025-06-04] MEDS: INSULIN DEGLUDEC 5 UNIT/0.05 ML (PER 5 UNITS) 10 UNIT SC (11:42)
--- NOTE | 2025-06-04 14:27 | PC.SS ---
Patient Isra Ramirez is a 50 Year old male admitted for Sepsis Due Celulitis. SS made contact with patient to discuss discharge plan and verify demographic information. Patient reports he lives at home with life partner Felecia Claudio. Patient reports he is independent with all ADL's and does not utilize any source of DME to assist with ambulation. Patient reports his life, Partner Felecia Claudio is his surrogate decision maker, [phone]. Choice of pharmacy is [facility]. PCP is Levar Miller. At time of discharge patient wishes to return home. SS inquired about Toxicology report and patient denies using any substance use. Patient reports he would like to discharge home when medically cleared. Discharge plan: Home Next of kin: Felecia Claudio
--- NOTE | 2025-06-04 14:34 | ESPR_ITS ---
<Statement entered by Clair Yanes MD - 06/05/25 07:53> Patient was seen and examined by me personally. I have directly supervised and reviewed documentation by the team resident and agree with its findings with any exceptions or additional findings as below. Plan of care was discussed with the attending, Dr. Mccrary. Clair Yanes, PGY-3 Documentation for date of: 06/04/25 Subjective Subjective Interval history: Patient seen and examined at bedside. Reports improvement in right leg pain and swelling compared to yesterday. Denies fevers, chills, or drainage from the wound. No nausea or vomiting; eating and drinking normally. No chest pain, dizziness, or shortness of breath. Denies burning, pain, or blood in urine; but endorses urinary incontinence. Reports feeling slightly more anxious today. Exam Vital Signs Temp Pulse Resp BP Pulse Ox O2 Del Method 98.5 F 112 H 17 120/82 97 Room Air 06/04/25 11:48 06/04/25 11:48 06/04/25 11:48 06/04/25 11:48 06/04/25 11:48 06/04/25 11:48 Narrative Exam General: Alert, oriented, appears uncomfortable but in no acute distress HEENT: Mucous membranes moist, no JVD or adenopathy Heart: Tachycardic, regular rhythm, no murmurs, rubs, or gallops Lungs: Clear to auscultation bilaterally Abdomen: Soft, non-tender, non-distended, normoactive bowel sounds Extremities: * Right lower leg: erythematous, warm, and tender from mid-calf to ankle * No fluctuance, crepitus, or drainage; small healed blister at 5th toe * Pulses palpable, no cyanosis * Left leg normal * Right arm with abrasion. Neuro: CN II?XII intact, motor and sensory grossly intact Skin: Erythematous area as above, borders marked for monitoring Psych: Calm, cooperative, appropriate affect Objective Labs 06/04/25 04:48 06/05/25 05:22 Labs: Laboratory Results - last 24 hr 06/03/25 06/03/25 06/03/25 12:45 15:20 16:10 WBC RBC Hgb Hct MCV MCH MCHC RDW Std Deviation Plt Count Neut % (Auto) Lymph % (Auto) [place] % (Auto) Eos % (Auto) Baso % (Auto) Neut # (Auto) Lymph # (Auto) [place] # (Auto) Eos # (Auto) Baso # (Auto) Immature Gran # (Auto) Absolute Nucleated RBC Immature Gran % Nucleated RBC % ESR 8 Sodium Potassium Chloride Carbon Dioxide Anion Gap BUN Creatinine Estim Creat Clear Calc eGFR BUN/Creatinine Ratio Glucose Estimated Ave Glu mg/dL Hemoglobin A1c Calculated Osmolality Lactic Acid 3.3 H Calcium Corrected Calcium Phosphorus Magnesium Total Bilirubin AST ALT Alkaline Phosphatase Total Creatine Kinase 122 Troponin I 0.170 H* Total Protein Albumin Globulin Albumin/Globulin Ratio TSH Ur Collection Type Clean Catch Urine Color Yellow Urine Clarity Clear Urine pH 6.5 Ur Specific Holmes 1.036 H Urine Protein 2+ A Urine Glucose (UA) 4+ A Urine Ketones 1+ A Urine Blood 2+ A Urine Nitrite Negative Urine Bilirubin Negative Urine Urobilinogen (Auto) 2.0 Ur Leukocyte Esterase Negative Urine RBC 3 Urine WBC 1 Ur Squamous Epith Cells 0 Urine Bacteria None Ur Culture Indicated? Not Indicated Urine Opiates Screen Negative Urine Fentanyl Screen Negative Ur Barbiturates Screen Negative U Amphetamin/Meth Scrn Positive A U Benzodiazepines Scrn Negative U Cocaine Metab Screen Negative U Marijuana (THC) Screen Negative Urine Alcohol Negative 06/03/25 06/04/25 06/04/25 21:32 00:20 04:48 WBC 26.8 H RBC 4.43 L Hgb 13.7 D Hct 38.1 L MCV 86 MCH 30.9 MCHC 36.0 RDW Std Deviation 44.8 H Plt Count 148 D Neut % (Auto) 87 H Lymph % (Auto) 4 L [place] % (Auto) 7 Eos % (Auto) 0 Baso % (Auto) 0 Neut # (Auto) 23.4 H Lymph # (Auto) 1.2 [place]ing # (Auto) 1.9 H Eos # (Auto) 0.1 Baso # (Auto) 0.1 Immature Gran # (Auto) 0.18 H Absolute Nucleated RBC 0.00 Immature Gran % 1 H Nucleated RBC % 0 ESR Sodium 134 L Potassium 4.3 Chloride 101 Carbon Dioxide 23.8 Anion Gap 9 BUN 23 Creatinine 1.3 Estim Creat Clear Calc 69.5 eGFR > 60 BUN/Creatinine Ratio [address] Glucose [address] Glu mg/dL 260 H Hemoglobin A1c 10.7 H Calculated Osmolality 281 Lactic Acid 2.7 H 2.2 H 2.1 H Calcium 8.0 L Corrected Calcium 8.6 Phosphorus 2.5 Magnesium 1.8 Total Bilirubin 1.3 H D AST 19 ALT 19 Alkaline Phosphatase 106 Total Creatine Kinase Troponin I Total Protein 5.4 L Albumin 3.2 L D Globulin 2.2 L Albumin/Globulin Ratio 1.5 TSH 0.82 Ur Collection Type Urine Color Urine Clarity Urine pH Ur Specific Holmes Urine Protein Urine Glucose (UA) Urine Ketones Urine Blood Urine Nitrite Urine Bilirubin Urine Urobilinogen (Auto) Ur Leukocyte Esterase Urine RBC Urine WBC Ur Squamous Epith Cells Urine Bacteria Ur Culture Indicated? Urine Opiates Screen Urine Fentanyl Screen Ur Barbiturates Screen U Amphetamin/Meth Scrn U Benzodiazepines Scrn U Cocaine Metab Screen U Marijuana (THC) Screen Urine Alcohol Quality Measures Quality Measures VTE prophylaxis Assessment & Plan Assessment Current Active Medications: Generic Name Dose Route Start Last Admin Trade Name Freq PRN Reason Stop Dose Admin Acetaminophen 650 mg 06/03/25 14:37 Acetaminophen 325 Mg Tablet PO 07/03/25 14:36 Q6H PRN Fever >100.4 or Pain 1-3 Dextrose 25 ml 06/03/25 14:48 Dextrose 50%-Water Inj 50 Ml Syringe IV 07/03/25 14:47 Q15MIN PRN BG 50-70 responsive npo pt Dextrose 50 ml 06/03/25 14:48 Dextrose 50%-Water Inj 50 Ml Syringe IV 07/03/25 14:47 Q15MIN PRN BG <50 OR BG <70 & pt unresponsive Glucagon 1 mg 06/03/25 14:48 Glucagon Inj 1 Mg Vial IM Q15MIN PRN BG <70, and no IV access Heparin Sodium (Porcine) 5,000 unit 06/03/25 15:00 06/04/25 13:41 Heparin Sod Inj 5000 Unit/Ml Vial SC 06/17/25 14:59 5,000 unit Q8HR ERICH Administration Hydromorphone HCl 0.4 mg 06/03/25 14:43 06/03/25 20:58 Hydromorphone Inj 2 Mg/Ml Vial IVP 06/08/25 14:42 0.4 mg Q4H PRN Administration PAIN SCALE 7-10 (Severe Doxycycline Hyclate 100 mg/ 100 mls @ 100 mls/hr 06/03/25 21:00 06/04/25 08:46 Sodium Chloride IV 06/10/25 20:59 100 mls/hr BID ERICH Administration Piperacillin Sod/Tazobactam 100 mls @ 25 mls/hr 06/03/25 22:00 06/04/25 13:41 Sod 4.5 gm/ Sodium Chloride IV 06/10/25 21:59 25 mls/hr Q8HR ERICH Administration Protocol Insulin Degludec 30 unit 06/03/25 21:00 06/03/25 20:57 Insulin Degludec 5 Unit/0.05 Ml (Per 5 Units) SC 07/03/25 20:59 30 unit HS ERICH Administration Insulin Human Lispro 0 unit 06/03/25 17:00 06/04/25 11:23 Insulin Lispro (Admelog) 1 Unit/0.01 Ml Unit SC 07/03/25 16:59 4 unit AC ERICH Administration Protocol Ondansetron HCl 4 mg 06/03/25 14:37 06/03/25 15:06 Ondansetron Inj 2 Mg/Ml Inj 2 Ml IVP 07/03/25 14:36 4 mg Q6H PRN Administration NAUSEA OR VOMITING Protocol Oxycodone/Acetaminophen 1 tab 06/03/25 14:43 06/04/25 08:45 Oxycodone/Apap 5/325 Tablet PO 06/08/25 14:42 1 tab Q6H PRN Administration PAIN SCALE 4-6 (Moderate Pantoprazole Sodium 40 mg 06/04/25 09:00 06/04/25 08:45 Pantoprazole 40 Mg Tablet PO 07/04/25 08:59 40 mg QDAY ERICH Administration Sennosides 1 tab 06/03/25 14:37 Senna Tablet PO 07/03/25 14:36 QDAY PRN constipation Protocol Plan 50M with T2DM, HTN, and polysubstance use (methamphetamine), admitted with sepsis secondary to RLE cellulitis. CT leg shows no abscess or osteomyelitis. Patient improving clinically with down-trending lactate and stable hemodynamics, though WBC still elevated and HR tachycardic. Methamphetamine use may be contributing to tachycardia and anxiety. # Sepsis secondary to cellulitis RLE cellulitis without abscess or osteomyelitis; meets SIRS criteria with fever, tachycardia, leukocytosis, and elevated lactate. Plan: * Continue Zosyn 4.5 g IV q6h (06/03? ) * Continue doxycycline 100 mg IV BID (06/03- ) * Monitor vitals q4h, maintain MAP >65 * Repeat CBC, BMP, and LFTs daily * Follow-up blood cultures * Wound care consult # Type 2 Diabetes Mellitus # Hyperglycemia A1c 10.7%; POC glucose 254; receiving degludec 30 last night, 10 this morning and correctional insulin. Plan: * Continue Degludec 40 U SQ qAM (increased by 10 U today) * Continue Lispro sliding scale ACHS (moderate) * POC glucose AC/HS * Carb-controlled diabetic diet * Monitor for hypoglycemia # Methamphetamine use Urine tox positive; patient denies recent use, admits to last use 6 years ago. Currently anxious, tachycardic. Plan: * Supportive care, monitor HR and BP * Avoid benzodiazepines unless agitation worsens * Offer substance use counseling once medically stable # Acute Kidney Injury Cr improving 1.3 from 1.4; likely pre-renal from sepsis/dehydration. Plan: * Avoid nephrotoxins and NSAIDs * Monitor I&O and daily BMP # Lactic Acidosis (resolved) Lactate 1.5 from sepsis. Plan: * Monitor patient * No need for further trending # Elevated Troponin (downtrending) Likely demand ischemia from sepsis/tachycardia; no chest pain. Plan: * No further need for trending * EKG if PRN symptoms * Monitor on telemetry # Bladder Wall Thickening Incidentally noted on imaging; possibly inflammatory or neurogenic. Plan: * UA and urine culture to rule out infection * Monitor for urinary retention * Consider outpatient urology referral after sepsis resolves # Hypertension Chronic, stable, home regimen unclear. Plan: * Hold home antihypertensives until medication reconciliation * Resume once verified Health Maintenance: Diet: Carbohydrate-controlled (diabetic) DVT Prophylaxis: Heparin 5,000 U SQ q8h GI Prophylaxis: PPI Code Status: Full Code Disposition: Admit to telemetry for sepsis management and close glucose monitoring ----- Plan discussed with attending physician Dr. Mccrary and senior resident Dr. Joaquín Clark MD PGY-1 Internal Medicine Attending Provider Attestation/Addendum I have seen and examined the patient. I was physically present for the william portions of the services provided including history, physical exam, diagnosis, treatment plans and orders. I agree with assessment and plan of care as documented by residents. Patient seen and examined at bedside this morning. No acute overnight events. Appears comfortable and denies any new complaints. Continues to be mildly tachycardic. Did not have any febrile episode after admission. Lab results show slightly improving WBC count. Chemistry panel showed improving kidney function improving glucose , Improving, bilirubin. Troponin has down trended. No further febrile episode. Hand x-ray was ordered, did not show any fracture or osteomyelitis. We will continue with IV antibiotics and await culture results. Toxicology came back positive for methamphetamine, however patient denies recent use, urinalysis did not show significant amount of RBCs. Given his history of methamphetamine abuse, elevated BNP, we will also obtain echocardiogram and discontinue his IV fluids. Even though this this note was carefully revised there may still be minor errors in sliver lapper due to voice recognition software. Jessica Mccrary MD
--- NOTE | 2025-06-04 14:42 | XR_ITS ---
Examination: Hand, right Technique: Hand AP and oblique, 2 views Date and time of exam: 06/04/2025, 2:57 p.m. INDICATION: Hand pain for several days status post punching wall COMPARISON: None FINDINGS: No acute fracture or dislocation. Joint spaces are well-maintained without significant osteoarthrosis. Diffuse soft tissue swelling is present. No radiodense foreign body or subcutaneous emphysema. IMPRESSION: Soft tissue swelling but no evidence for acute fracture or dislocation on the provided 2 views.
[2025-06-04] MEDS: BACITRACIN OINT 15 GM TUBE TOP (16:02)
[2025-06-04 16:55] LABS: Lactate (Lactic Acid) 1.5 mMol/L (0.4-2.0)
[2025-06-04] MEDS: INSULIN DEGLUDEC 5 UNIT/0.05 ML (PER 5 UNITS) 40 UNIT SC (22:43)
[2025-06-04] MEDS: MELATONIN 3 MG TABLET PO (22:56)
[2025-06-05] VITALS (8 sets, daily range): BP systolic 111–136; BP diastolic 83–95; PULSE 74–118; RESP 15–97; TEMP 36.2–37.1; O2SAT 96–99
--- NOTE | 2025-06-05 00:03 | PC.NURSE ---
Dr. Dixon notified regarding patient refusing 2100 dose of IV doxycycline due to burning too much, even after changing the IV, slowing the rate down, and Y-siting with normal saline IVF bag.
[2025-06-05 05:55] LABS: Basophils # (Auto) 0.1 Thou/mm3 (0.0-0.2); Basophils % (Auto) 0 % (0-2.5); Eosinophils # (Auto) 0.2 Thou/mm3 (0.0-0.5); Eosinophils % (Auto) 1 % (0-10); Hemoglobin 12.9 g/dL (13.5-16.0); Lymphocytes % (Auto) 8 % (10-50); Mean Corpuscular Volume 86 fL (80-100); Monocytes # (Auto) 1.7 Thou/mm3 (0.0-0.8); Monocytes % (Auto) 7 % (0-12); Neutrophils # (Auto) 20.2 Thou/mm3 (1.8-7.7); Nucleated Red Blood Cell # 0.00 Thou/mm3 (0.00-0.00); Nucleated Red Blood Cell % 0 /100 WBC (0)
[2025-06-05 06:26] LABS: Alanine Aminotransferase 19 U/L (10-49); Albumin, Serum 3.2 gm/dL (3.5-5.0); Albumin/Globulin Ratio 1.5 (1.2-2.2); Alkaline Phosphatase 133 U/L (46-116); Anion Gap 10 (7-16); Aspartate Amino Transferase 22 U/L (0-34); BUN/Creatinine Ratio 19 Ratio (12-20); Bilirubin,Total 1.4 mg/dL (0.3-1.2); Blood Urea Nitrogen 19 mg/dL (9-23); Calcium 8.0 mg/dL (8.3-10.6); Calcium (Corrected) 8.6 mg/dL (8.5-10.1); Carbon Dioxide 21.4 mMol/L (20.0-31.0); Chloride 102 mMol/L (98-107); Creatinine (Component) 1.0 mg/dL (0.6-1.3); Estimated Creatinine Clearance 87.4 mL/min (>60); Globulin 2.2 gm/dL (2.3-3.5); Glucose 180 mg/dL (74-106); Magnesium 1.6 mg/dL (1.6-2.6); Osmolality,Calculated 273 (275-295); Phosphorous 2.7 mg/dL (2.4-5.1); Potassium 4.1 mMol/L (3.4-5.1); Sodium 133 mMol/L (136-145); Total Protein 5.4 gm/dL (5.7-8.2); eGFR > 60 See Note
[2025-06-05] MEDS: HEPARIN SOD INJ 5000 UNIT/ML VIAL SC ×3 (06:28→21:04)
[2025-06-05] MEDS: PIPER/TAZO INJ 4.5 GM in SODIUM CHLORIDE 0.9% (POP) 100 ML IV ×3 (06:28→21:09)
[2025-06-05 08:31] LABS: Hematocrit 35.7 % (41.0-53.0); Immature Granulocytes Auto 0.20 Thou/mm3 (0.00-0.00); Lymphocytes # (Auto) 1.9 Thou/mm3 (1.0-4.8); Mean Corpuscular HGB Conc 36.1 g/dl (31.0-37.0); Mean Corpuscular Hemoglobin 31.1 pg (25.0-35.0); Neutrophils % (Auto) 83 % (37-80); Platelet Count 163 Thou/mm3 (140-440); RDW Standard Deviation 44.9 fL (35.1-43.9); Red Blood Count 4.15 Miln/mm3 (4.50-5.90); White Blood Count 24.2 Thou/mm3 (3.8-10.6)
[2025-06-05] MEDS: PANTOPRAZOLE 40 MG TABLET PO (08:53)
[2025-06-05] MEDS: BACITRACIN OINT 15 GM TUBE TOP ×2 (08:53→21:12)
[2025-06-05] MEDS: Magnesium Sulfate 2 GM Ivpb 2 GM/50 ML BAG IV (09:22)
[2025-06-05] MEDS: INSULIN DEGLUDEC 5 UNIT/0.05 ML (PER 5 UNITS) 4 UNIT SC (09:26)
[2025-06-05] MEDS: DOXYCYCLINE INJ 100 MG in SODIUM CHLORIDE 0.9% (POP) 100 ML IV (10:45)
--- NOTE | 2025-06-05 11:05 | PC.SS ---
SS follow up note; Patient is on IV ABX. Patient will discharge home when medically cleared.
--- NOTE | 2025-06-05 14:30 | ESPR_ITS ---
<Statement entered by Rao Geronimo MD - 06/20/25 07:50> I reviewed above note and agree with findings and plans. I have also personally examined the patient with medicine team and went over assessment and plan with medical team including culinary internship and resident physician. <Statement entered by Parth Robison MD - 06/05/25 14:46> Patient is seen and examined at bedside. No acute overnight events. Denies any other complaints and reports that he is feeling better since the day of hospitalization. Physical examination, noted to have improvement in the erythema and swelling of the right lower extremity. Echo showed EF of 25% and patient was started on GDMT, including carvedilol and Entresto. Will adjust the dose based on the blood pressure and other vitals. Will continue antibiotics. Blood cultures came back negative after 48 hours. Will monitor for 1 more day as the patient white count is still significantly elevated I have personally seen and examined the patient, agree with residents assessment and plan Patient plan of care was discussed with the attending physician, Dr. Juanpablo Robison, PGY2 Documentation for date of: 06/05/25 Subjective Subjective Interval history: Patient seen and examined at bedside. Reports continued improvement in right leg pain and redness, pain previously extended down to the ankle but now localized to the calf. No drainage, fevers, or chills. Tolerating diet well, no nausea or vomiting. Denies chest pain, shortness of breath, or palpitations. No urinary complaints. Exam Vital Signs Temp Pulse Resp BP Pulse Ox O2 Del Method 97.4 F 101 H 18 125/91 H 99 Room Air 06/05/25 12:00 06/05/25 12:00 06/05/25 12:00 06/05/25 12:00 06/05/25 12:00 06/05/25 12:00 Narrative Exam General: Alert, oriented, in no acute distress. Cardiac: Tachycardic, regular rhythm, no murmurs or rubs. Lungs: Clear to auscultation bilaterally. Abdomen: Soft, non-tender, non-distended. Extremities: Right lower extremity erythema improving, warmth and swelling significantly decreased, tenderness localized to calf; no fluctuance or drainage. Neuro: Alert, moving all extremities, no focal deficits. Skin: Warm, dry, no new lesions. : No suprapubic tenderness or bladder distention. Objective Labs 06/05/25 05:22 06/05/25 05:22 Labs: Laboratory Results - last 24 hr 06/04/25 06/05/25 16:35 05:22 WBC 24.2 H RBC 4.15 L Hgb 12.9 L Hct 35.7 L MCV 86 MCH 31.1 MCHC 36.1 RDW Std Deviation 44.9 H Plt Count 163 Neut % (Auto) 83 H Lymph % (Auto) 8 L Delta % (Auto) 7 Eos % (Auto) 1 Baso % (Auto) 0 Neut # (Auto) 20.2 H Lymph # (Auto) 1.9 Delta # (Auto) 1.7 H Eos # (Auto) 0.2 Baso # (Auto) 0.1 Immature Gran # (Auto) 0.20 H Absolute Nucleated RBC 0.00 Immature Gran % 1 H Nucleated RBC % 0 Sodium 133 L Potassium 4.1 Chloride 102 Carbon Dioxide 21.4 Anion Gap 10 BUN 19 Creatinine 1.0 Estim Creat Clear Calc 87.4 eGFR > 60 BUN/Creatinine Ratio 19 Glucose 180 H D Calculated Osmolality 273 L Lactic Acid 1.5 Calcium 8.0 L Corrected Calcium 8.6 Phosphorus 2.7 Magnesium 1.6 Total Bilirubin 1.4 H AST 22 ALT 19 Alkaline Phosphatase 133 H D Total Protein 5.4 L Albumin 3.2 L Globulin 2.2 L Albumin/Globulin Ratio 1.5 Quality Measures Quality Measures VTE prophylaxis Assessment & Plan Assessment Current Active Medications: Generic Name Dose Route Start Last Admin Trade Name Freq PRN Reason Stop Dose Admin Acetaminophen 650 mg 06/03/25 14:37 Acetaminophen 325 Mg Tablet PO 07/03/25 14:36 Q6H PRN Fever >100.4 or Pain 1-3 Bacitracin 0 gm 06/04/25 15:00 06/05/25 08:53 Bacitracin Oint 15 Gm Tube TOP 06/11/25 14:59 1 applicatio BID ERICH Administration Carvedilol 3.125 mg 06/05/25 17:30 Carvedilol 3.125 Mg Tablet PO 07/05/25 17:29 BIDWM ERICH Dextrose 25 ml 06/03/25 14:48 Dextrose 50%-Water Inj 50 Ml Syringe IV 07/03/25 14:47 Q15MIN PRN BG 50-70 responsive npo pt Dextrose 50 ml 06/03/25 14:48 Dextrose 50%-Water Inj 50 Ml Syringe IV 07/03/25 14:47 Q15MIN PRN BG <50 OR BG <70 & pt unresponsive Doxycycline Hyclate 100 mg 06/05/25 21:00 Doxycycline 100 Mg Tablet PO 06/12/25 20:59 BID ERICH Glucagon 1 mg 06/03/25 14:48 Glucagon Inj 1 Mg Vial IM Q15MIN PRN BG <70, and no IV access Heparin Sodium (Porcine) 5,000 unit 06/03/25 15:00 06/05/25 14:14 Heparin Sod Inj 5000 Unit/Ml Vial SC 06/17/25 14:59 5,000 unit Q8HR ERICH Administration Hydromorphone HCl 0.4 mg 06/03/25 14:43 06/03/25 20:58 Hydromorphone Inj 2 Mg/Ml Vial IVP 06/08/25 14:42 0.4 mg Q4H PRN Administration PAIN SCALE 7-10 (Severe Piperacillin Sod/Tazobactam 100 mls @ 25 mls/hr 06/03/25 22:00 06/05/25 14:13 Sod 4.5 gm/ Sodium Chloride IV 06/10/25 21:59 25 mls/hr Q8HR [facility] Administration Protocol Insulin Degludec 44 unit 06/05/25 21:00 Insulin Degludec 5 Unit/0.05 Ml (Per 5 Units) AL 07/05/25 20:59 HS [facility] Insulin Human Lispro 0 unit 06/04/25 21:30 06/05/25 11:14 Insulin Lispro (Admelog) 1 Unit/0.01 Ml Unit SC 07/04/25 21:29 Not Given ACHS [facility] Protocol Melatonin 3 mg 06/04/25 16:11 06/04/25 22:56 Melatonin 3 Mg Tablet PO 07/04/25 20:59 3 mg HS PRN Administration SLEEPLESSNESS Ondansetron HCl 4 mg 06/03/25 14:37 06/03/25 15:06 Ondansetron Inj 2 Mg/Ml Inj 2 Ml IVP 07/03/25 14:36 4 mg Q6H PRN Administration NAUSEA OR VOMITING Protocol Oxycodone/Acetaminophen 1 tab 06/03/25 14:43 06/05/25 06:30 Oxycodone/Apap 5/325 Tablet PO 06/08/25 14:42 1 tab Q6H PRN Administration PAIN SCALE 4-6 (Moderate Pantoprazole Sodium 40 mg 06/04/25 09:00 06/05/25 08:53 Pantoprazole 40 Mg Tablet PO 07/04/25 08:59 40 mg QDAY ERICH Administration Sacubitril/Valsartan 0.5 tab 06/05/25 21:00 Sacubitril 24 Mg/Valsartan 26 Mg Tablet PO 07/05/25 20:59 BID ERICH Sennosides 1 tab 06/03/25 14:37 06/05/25 14:27 Senna Tablet PO 07/03/25 14:36 1 tab QDAY PRN Administration constipation Protocol Plan 50M with sepsis secondary to RLE cellulitis, T2DM with hyperglycemia, and newly recognized severe HFrEF (EF 25?30%). Now clinically improving on IV antibiotics with down-trending WBC, negative cultures, and stable renal function. Transitioned to PO doxycycline due to IV intolerance. Started on GDMT for heart failure and insulin titrated for improved glucose control. # Sepsis secondary to cellulitis Improving erythema, no drainage, blood cultures negative. Plan: * Continue Zosyn 4.5 g IV q6h (06/03- ) * Switched doxycycline to PO 100 mg BID per patient request (burning with IV) (06/03- ) * Monitor borders, daily wound checks * Trend WBC and vitals * Pain control: Acetaminophen 650 mg PO q6h PRN, Oxycodone 5 mg PO q4h PRN * Arterial ultrasound ordered for PAD evaluation due to diabetic status and persistent calf tenderness # Heart failure with reduced EF Echo EF 25?30% with biatrial enlargement and RV strain; started on GDMT. Plan: * Started Carvedilol (Coreg) * Titrate per BP/HR tolerance * Monitor daily weights, I&O, electrolytes # Hyperglycemia # Type 2 Diabetes Mellitus Glucose 180; insulin titrated with good response. Plan: * Increase Degludec to 44 units nightly * Continue Lispro sliding scale ACHS * Monitor glucose AC/HS * Continue carb-controlled diet * Adjust insulin regimen prior to discharge # Methamphetamine use Urine tox positive; patient denies recent use. Plan: * Continue supportive care and monitoring * Offer substance-use counseling before discharge # Tachycardia HR 110, likely multifactorial from meth withdrawl, infection, stimulant use, and heart failure. Plan: * Continue telemetry * Monitor HR with Coreg initiation * Maintain K > 4, Mg > 2 # Acute kidney injury Resolved (Cr 1.0). Plan: * Avoid nephrotoxins, daily BMP # Bladder wall thickening Asymptomatic; likely inflammatory. Plan: * Monitor urine output, await UA/culture results * Outpatient urology referral after stabilization Health Maintenance: Diet: Carb-controlled, diabetic DVT prophylaxis: Heparin 5,000 U SQ q8h GI prophylaxis: PPI Activity: As tolerated Code Status: Full Code Disposition: Continue inpatient IV antibiotics and GDMT optimization; anticipate discharge tomorrow. ----- Plan discussed with attending physician Dr. Geronimo and senior resident Dr. Ricki Clark MD PGY-1 Internal Medicine
--- NOTE | 2025-06-05 14:35 | XR_ITS ---
Examination: Venous duplex lower extremity sonogram, bilateral. Date and time of exam: 06/05/2025 at 3:21 p.m. INDICATION: Right leg pain, swelling and redness for 1 week COMPARISON: CT right lower extremity and chest radiograph of 06/03/2025 were reviewed. Technique: Multiple sonographic images of the deep venous system have been obtained. B-mode/2-D grayscale imaging of vascular structures and Doppler spectral analysis (waveforms) and color performed Both legs are examined. Findings: There is no evidence for thrombus in the interrogated bilateral lower extremity veins. All visualized deep veins exhibit compressibility. All visualized deep veins exhibit augmentation. All visualized veins demonstrate diffuse biphasic/pulsatile waveforms Subcutaneous edema is present within the right lower extremity as seen on prior CT. Impression: Negative for deep vein thrombosis in the bilateral lower extremities. Pulsatile waveforms throughout the bilateral lower extremity veins suggest elevated right heart pressure either due to right heart failure or tricuspid regurgitation. Subcutaneous edema throughout the right lower extremity.
--- NOTE | 2025-06-05 15:30 | XR_ITS ---
Examination: Arterial duplex lower extremity study. Date and time of exam: 06/05/2025, 3:34 p.m. Findings: Duplex sonographic imaging of the lower extremity arteries using B-mode/Field scale imaging and Doppler spectral analysis and color flow. Right ankle brachial index has been recorded. Unable to obtain left JAMIE due to inability to obtain left brachial pressure. Right common femoral artery demonstrates triphasic flow. Right superficial femoral artery demonstrates triphasic flow. Right popliteal artery demonstrates triphasic flow. Right posterior tibial artery demonstrates triphasic flow. Right anterior tibial artery demonstrates triphasic flow. Right dorsalis pedis artery demonstrates triphasic flow. Right ankle/brachial index is 1.0. Left common femoral artery demonstrates triphasic flow. Left superficial femoral artery demonstrates triphasic flow. Left popliteal artery demonstrates triphasic flow. Left posterior tibial artery demonstrates triphasic flow. Left anterior tibial artery demonstrates triphasic flow. Left dorsalis pedis artery demonstrates triphasic flow. Left ankle/brachial index is unable to be obtained. Impression: Negative bilateral lower extremity arterial ultrasound for significant stenosis or occlusion on either side. Normal right JAMIE of 1.0. Unable to obtain left JAMIE due to inability to obtain left brachial pressure.
[2025-06-05] MEDS: INSULIN LISPRO (AdmeLOG) 1 UNIT/0.01 ML UNIT SC ×2 (17:11→21:04)
[2025-06-05] MEDS: DOXYCYCLINE 100 MG TABLET PO (21:10)
[2025-06-05] MEDS: MELATONIN 3 MG TABLET PO (21:17)
[2025-06-06] VITALS (9 sets, daily range): BP systolic 109–123; BP diastolic 79–85; PULSE 90–105; RESP 16–96; TEMP 36.1–37.4; O2SAT 93–97
[2025-06-06] MEDS: PIPER/TAZO INJ 4.5 GM in SODIUM CHLORIDE 0.9% (POP) 100 ML IV (05:30)
[2025-06-06] MEDS: HEPARIN SOD INJ 5000 UNIT/ML VIAL SC ×2 (05:30→13:36)
[2025-06-06 06:35] LABS: Basophils # (Auto) 0.1 Thou/mm3 (0.0-0.2); Basophils % (Auto) 0 % (0-2.5); Eosinophils # (Auto) 0.4 Thou/mm3 (0.0-0.5); Eosinophils % (Auto) 2 % (0-10); Hematocrit 34.1 % (41.0-53.0); Hemoglobin 12.8 g/dL (13.5-16.0); Immature Granulocytes Auto 0.19 Thou/mm3 (0.00-0.00); Lymphocytes # (Auto) 1.9 Thou/mm3 (1.0-4.8); Lymphocytes % (Auto) 11 % (10-50); Mean Corpuscular HGB Conc 37.5 g/dl (31.0-37.0); Mean Corpuscular Hemoglobin 32.0 pg (25.0-35.0); Mean Corpuscular Volume 85 fL (80-100); Monocytes # (Auto) 1.4 Thou/mm3 (0.0-0.8); Monocytes % (Auto) 8 % (0-12); Neutrophils # (Auto) 13.5 Thou/mm3 (1.8-7.7); Neutrophils % (Auto) 77 % (37-80); Nucleated Red Blood Cell # 0.00 Thou/mm3 (0.00-0.00); Nucleated Red Blood Cell % 0 /100 WBC (0); Platelet Count 227 Thou/mm3 (140-440); RDW Standard Deviation 44.4 fL (35.1-43.9); Red Blood Count 4.00 Miln/mm3 (4.50-5.90); White Blood Count 17.4 Thou/mm3 (3.8-10.6)
[2025-06-06 06:57] LABS: Alanine Aminotransferase 31 U/L (10-49); Albumin, Serum 3.2 gm/dL (3.5-5.0); Albumin/Globulin Ratio 1.5 (1.2-2.2); Alkaline Phosphatase 140 U/L (46-116); Anion Gap 10 (7-16); Aspartate Amino Transferase 35 U/L (0-34); BUN/Creatinine Ratio 16 Ratio (12-20); Bilirubin,Total 1.4 mg/dL (0.3-1.2); Blood Urea Nitrogen 16 mg/dL (9-23); Calcium 7.8 mg/dL (8.3-10.6); Calcium (Corrected) 8.4 mg/dL (8.5-10.1); Carbon Dioxide 22.7 mMol/L (20.0-31.0); Chloride 103 mMol/L (98-107); Creatinine (Component) 1.0 mg/dL (0.6-1.3); Estimated Creatinine Clearance 87.4 mL/min (>60); Globulin 2.2 gm/dL (2.3-3.5); Glucose 164 mg/dL (74-106); Magnesium 1.9 mg/dL (1.6-2.6); Osmolality,Calculated 277 (275-295); Phosphorous 3.4 mg/dL (2.4-5.1); Potassium 4.2 mMol/L (3.4-5.1); Sodium 136 mMol/L (136-145); Total Protein 5.4 gm/dL (5.7-8.2); eGFR > 60 See Note
[2025-06-06] MEDS: INSULIN LISPRO (AdmeLOG) 1 UNIT/0.01 ML UNIT SC ×2 (07:53→11:58)
--- NOTE | 2025-06-06 08:25 | PC.CC ---
On Entresto. No PA required at this time.
[2025-06-06] MEDS: PANTOPRAZOLE 40 MG TABLET PO (08:52)
[2025-06-06] MEDS: DOXYCYCLINE 100 MG TABLET PO (08:52)
[2025-06-06] MEDS: BACITRACIN OINT 15 GM TUBE TOP (08:53)
--- NOTE | 2025-06-06 09:20 | PC.CC ---
Received call from ASUNCION Rogers @ [facility] inquiring about discharge plan. Advised that patient's planned disposition is home, d/c possible today per MD note, with no indication of HH needed at this time.
--- NOTE | 2025-06-06 11:31 | ESDS_ITS ---
<Statement entered by Rao Geronimo MD - 06/20/25 07:51> I reviewed above note and agree with findings and plans. I have also personally examined the patient with medicine team and went over assessment and plan with medical team including mba internship and resident physician. <Statement entered by Parth Robison MD - 06/08/25 16:05> I have personally seen and examined the patient, agree with residents assessment and plan Patient plan of care was discussed with the attending physician, Dr. Juanpablo Robison, PGY2 Planned Discharge Date 06/06/25 DS: Providers Provider Date of admission: 06/03/25 15:00 Primary care physician: Levar Miller MD Admitting Provider: Jessica Mccrary MD Attending Provider on Admission: Jessica Mccrary MD Consults: 06/03/25 14:48 Referral Wound Care Routine Comment: right leg cellulitis 06/03/25 23:15 Referral Registered Dietitian Routine Comment: DIABETIC EDUCATION 06/04/25 15:10 Referral OP Wound Healing Dept Routine Comment: Right hand truama, right 5th toe DM ulcer 06/05/25 02:36 Referral [facility] Routine Comment: Attending Provider on DC: Rao Geronimo MD Discharging Provider: Haider Clark MD DS: Diagnosis Problem List Completed Was Problem List Reviewed/Reconciled?: Yes Hospital Course Hospital Course Hospital course: 50-year-old male with past medical history of type 2 diabetes mellitus, hypertension, and remote methamphetamine use presented with four days of right leg pain, redness, swelling, and fever. On admission, he was febrile and tachycardic with WBC 27.7, lactate 3.12, glucose 407, and Cr 1.4. Venous Doppler ruled out DVT, and CT of the right leg showed diffuse cellulitis without abscess or osteomyelitis. He was started on IV Zosyn and IV doxycycline, later transitioned to PO doxycycline due to IV site burning. He received IV fluids for sepsis resuscitation. Blood cultures remained negative after 48 hours, and his WBC trended down from 27.7 -> 26.8 -> 24.2 -> 17.4 by discharge. The patient?s right leg erythema and swelling improved significantly, with pain now limited to the calf. Duplex arterial ultrasound showed no significant stenosis or occlusion, with normal right JAMIE. An echocardiogram obtained during admission revealed EF 25?30%, grade III diastolic dysfunction, moderate TR/MR, and biatrial enlargement, consistent with newly recognized heart failure with reduced ejection fraction (HFrEF). He was started on GDMT, including Entresto and Carvedilol (Coreg). His renal function improved (Cr 1.4 -> 1.0), and glucose levels stabilized on Degludec 44 U nightly with sliding-scale insulin. A1c was 10.7%, indicating poor outpatient control. Patient?s vitals remained stable, he remained afebrile, and he was tolerating diet and ambulating independently. Given clinical improvement, stable labs, and negative cultures, he was deemed medically stable for discharge on oral antibiotics. Discharge Diagnoses: #Sepsis secondary to cellulitis ? resolved #Cellulitis of right lower extremity #Heart failure with reduced ejection fraction (EF 25?30%) #Type 2 diabetes mellitus, poorly controlled (A1c 10.7%) #Hypertension #Methamphetamine use ? remote, denies current use #Acute kidney injury ? resolved #Bladder wall thickening (incidental finding) Discharge Instructions: -Follow-up with PCP within 1 week of discharge. If you do not have appointment, please follow-up with the [facility] with Dr. Robison. Call [phone] to make an appointment. -Recommended to follow with [facility] in view of heart failure, EF 25% -Recommended to take Doxycycline 100mg and Amoxicillin Clavulanate 875-125mg twice daily for 11 days -Recommended to take Carvedilol 6.25mg and entresto half tablet twice daily -Recommended to take Insulin Degludec 48units during night at 9PM and take Metformin 1000mg twice daily -Check blood sugars with sensor -Take melatonin as needed for sleep and tylenol/ibuprofen as needed for pain -Return to ED if symptoms persist or return ----- Plan discussed with attending physician Dr. Geronimo and senior resident Dr. Ricki Clark MD PGY-1 Internal Medicine Time Spent with Patient Time attestation: Total time spent providing and/or coordinating discharge services: Time spent: Greater than 30 minutes Exam Vital Signs Temp Pulse Resp BP Pulse Ox O2 Del Method 99.4 F 94 20 118/82 96 Room Air 06/06/25 11:07 06/06/25 11:07 06/06/25 11:07 06/06/25 11:07 06/06/25 11:07 06/06/25 11:07 Narrative Exam General: Alert, oriented, no acute distress HEENT: Mucous membranes moist Heart: Regular rhythm, no murmurs or rubs Lungs: Clear to auscultation bilaterally Abdomen: Soft, non-tender, non-distended Extremities: Right lower extremity erythema markedly improved, mild residual calf tenderness, no drainage or fluctuance, pulses intact bilaterally Neuro: Alert, oriented ?3, no focal deficits Skin: Warm, dry, no new lesions : No suprapubic tenderness or retention Discharge Plan Plan Patient Disposition: HOME (Self Care) Patient condition on transfer: Stable Care Plan Goals: 1) Follow up with Dr. Jacobsen Podiatry for wound to right foot, Please call to obtain an appointment MARK. 2) Follow up with [facility] for your right hand. [address] [place] [address]. Call [phone] for appointment. 3) Wound care -Remove dressings and Shower daily and apply moisturizing cream to dry flaky skin except for wound sites -Right hand: apply thin layer of bacitrcin ointment and cover with foam dressing twice a day -Right 5th toe: swab with betadine and cover with bandaide or foam dressing daily *Avoid ambulating using your toes, use heel of foot until wound is healed. If active bleeding occurs, apply tight dressing and return to MD or ER. ? Notify primary doctor or return to Emergency Room if any of the following: ? Fever above 100.6? F. ? Increased pain ? Increase swelling ? Red streaks around your wound ? Drainage becomes foul smelling or changes color ? The wound is larger or deeper ? The wound looks dried out or dark ? Bleeding that does not stop with holding pressure -Follow-up with PCP within 1 week of discharge. If you do not have appointment, please follow-up with the [facility] with Dr. Robison. Call [phone] to make an appointment. -Recommended to follow with [facility] in view of heart failure, EF 25% -Recommended to take Doxycycline 100mg and Amoxicillin Clavulanate 875-125mg twi ce daily for 11 days -Recommended to take Carvedilol 6.25mg and entresto half tablet twice daily -Recommended to take Insulin Degludec 48units during night at 9PM and take Metformin 1000mg twice daily -Check blood sugars with sensor -Take melatonin as needed for sleep and tylenol/ibuprofen as needed for pain -Return to ED if symptoms persist or return Prescriptions/Referrals Prescriptions/Med Rec: New metformin 1,000 mg tablet 1,000 mg PO BID Qty: 30 2RF melatonin 3 mg Tablet 3 mg PO HS PRN (Reason: Sleeplessness) Qty: 30 0RF carvedilol 3.125 mg Tablet 6.25 mg PO BIDWM Qty: 30 2RF doxycycline hyclate 100 mg Tablet 100 mg PO BID Qty: 22 0RF sacubitril-valsartan 24-26 mg Tablet 0.5 tab PO BID Qty: 30 1RF amoxicillin-pot clavulanate 875-125 mg tablet 1 tab PO BID Qty: 22 0RF Rx Instructions: Take 1 tablet twice daily (DME) FreeStyle [place] 3 Plus Sensor Device See Rx Instructions .Route Qty: 1 3RF Rx Instructions: As directed insulin degludec 200 unit/mL (3 mL) insulin pen 48 unit subcut QDAY Qty: 9 2RF (DME) pen needle, diabetic [Comfort EZ Pen [place]] 31 gauge x 1/4 needle See Rx Instructions .Route Qty: 100 3RF Rx Instructions: As directed Discontinued metformin [Glucophage] 850 MG tablet 850 mg PO BID Qty: 0 Referrals: Levar Miller MD [Primary Care Provider, Family Practice] Patient/Caregiver Discharge Instructions Education Materials: Nutrition for Wound Healing, Discharge Instructions for Cellulitis, Wound Care Dc, Preventing Surgical Site Infections, Your Diabetes Foot Care Program, Special Foot Care for Diabetes Print Language: Romanian Stand Alone Forms: Pamela Award Info., Patient Portal Info Letter Discharge Order Discharge Orders: Discharge (Routine); Ordered 06/06/25 Ordered By: Parth Robison Quality Discharge Quality Measures VTE prophylaxis
[2025-06-06] MEDS: ONDANSETRON INJ 2 MG/ML INJ 2 ML 4 MG IVP (11:37)
[2025-06-06] MEDS: MG HYD/AL HYD/SIME (Maalox Reg) SUSP 30 ML UDC 15 ML PO (15:13)
== END 2025-06-06 15:22 | disposition home or self-care (01) | DRG 720 ==
LOC: SERX 14:09 → SERHOLD 18:45 → S3SX 06-04 06:11
PROVIDERS: Nurse Practitioner Family; Admitting Provider Student in an Organized Health Care Education/Training Program; Emergency Provider Emergency Medicine; PCP Family Medicine; Visit Provider Internal Medicine
DX: A41.9 Sepsis, unspecified organism (principal); I24.89 Other forms of acute ischemic heart disease; E86.0 Dehydration; N17.9 Acute kidney failure, unspecified; E11.65 Type 2 diabetes mellitus with hyperglycemia; E87.1 Hypo-osmolality and hyponatremia; L03.115 Cellulitis of right lower limb; E87.20 Acidosis, unspecified; I11.0 Hypertensive heart disease with heart failure; I50.20 Unspecified systolic (congestive) heart failure; S90.424A Blister (nonthermal), right lesser toe(s), initial encounter; Z87.891 Personal history of nicotine dependence; R32 Unspecified urinary incontinence; Z79.4 Long term (current) use of insulin
CPT/HCPCS: 36415; 71045; 73120; 73700; 76857; 80053; 80307; 80320; 81001; 82550; 83036; 83605; 83615; 83690; 83735; 83880; 84100; 84145; 84443; 84484; 85025; 85610; 85652; 85730; 87040; 93005; 93225; 93306; 93925; 93970; 93971; 96365; 96366; 96372; 96375; 99284; J0696; J1171; J1644; J1815; J2405; J2543; J3373; J3475; J3490; J7030; A9270; G0480

== ENCOUNTER 2025-07-20 13:41 | Inpatient (IN) | payer MEDICAID, SELFPAY ==
[2025-07-20] VITALS (15 sets, daily range): BP systolic 103–157; BP diastolic 76–126; PULSE 90–120; RESP 16–30; TEMP 36.5–36.8; O2SAT 81–99; BMI 24.6
--- NOTE | 2025-07-20 15:15 | XR_ITS ---
EXAMINATION: PA chest single view TECHNIQUE: Upright PA chest single view Date and time: July 20, 2025, 1515 hours INDICATION: Shortness of breath today. FINDINGS: Mild heart failure Mild enlargement cardiac contour Prominent central vascular congestion Early septal edema at the lung bases Small to moderate bilateral pleural effusions IMPRESSION: Mild heart failure
--- NOTE | 2025-07-20 15:15 | EKG_ITS ---
[facility] Test Date: 2025-07-20 Pat Name: VENUS ARNOLD Department: Room: - Gender: Male Reconnaissance Man: : 1975 Requested By: Cesilia Teague Order Number: [id number] Reading MD: Cesilia Teague Measurements Intervals [place] Rate: 117 P: 71 TN: 120 QRS: -12 QRSD: 117 T: 89 QT: 342 QTc: 478 Interpretive Statements SINUS TACHYCARDIA POSSIBLE LEFT ATRIAL ENLARGEMENT [-0.1mV P-WAVE IN V1/V2] INDETERMINATE AXIS RIGHT BUNDLE BRANCH BLOCK [120+ ms QRS DURATION, UPRIGHT V1, 40+ ms S IN I/aVL/V4/V5/V6] Compared to ECG 06/03/2025 15:18:15 Indeterminate axis now present Left anterior fascicular block no longer present Myocardial infarct finding no longer present /store/S0/[id number]
--- NOTE | 2025-07-20 15:19 | PD.EDRME ---
Rapid Medical Screening Exam [facility] Arrival date/time: 07/20/25 13:41 This is a 50-year-old male that comes into the emergency room with complaints of shortness of breath on and off for the past few days. Patient states he denies chest pain. Patient denies any runny nose, fever, sore throat, cough. Patient denies any fever, chills. Patient states he only has shortness of breath. Patient does have a history of diabetes, high blood pressure. 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 In June of this year patient was admitted for sepsis secondary to cellulitis to right lower extremity. At that time it was found that patient was having heart failure and high blood pressure. Patient also had an acute kidney injury at that time but according to notes it resolved. I have greeted and performed a focused initial assessment of this patient. Initial appropriate labs ordered at this time. A comprehensive ED assessment and evaluation of the patient and analysis of all test and completion of medical decision making process will be conducted by additional ED provider. Chief Complaint: Shortness of Breath/Dyspnea Time Seen by Provider: 07/20/25 14:25 Vital signs: Vital Signs Temperature 98.0 F 07/20/25 14:57 Pulse Rate 114 H 07/20/25 14:57 Respiratory Rate 20 07/20/25 14:57 Blood Pressure 157/123 H 07/20/25 14:57 Pulse Oximetry (%) 98 07/20/25 14:57 Oxygen Delivery Method Room Air 07/20/25 14:57 Exam: Awake alert, breathing even and unlabored, skin warm and dry Clinical Impression: Shortness of breath
[2025-07-20 15:38] LABS: Basophils # (Auto) 0.0 Thou/mm3 (0.0-0.2); Basophils % (Auto) 0 % (0-2.5); Eosinophils # (Auto) 0.1 Thou/mm3 (0.0-0.5); Eosinophils % (Auto) 2 % (0-10); Hematocrit 39.8 % (41.0-53.0); Hemoglobin 14.0 g/dL (13.5-16.0); Immature Granulocytes Auto 0.04 Thou/mm3 (0.00-0.00); Lymphocytes # (Auto) 1.8 Thou/mm3 (1.0-4.8); Lymphocytes % (Auto) 25 % (10-50); Mean Corpuscular HGB Conc 35.2 g/dl (31.0-37.0); Mean Corpuscular Hemoglobin 30.0 pg (25.0-35.0); Mean Corpuscular Volume 85 fL (80-100); Monocytes # (Auto) 0.6 Thou/mm3 (0.0-0.8); Monocytes % (Auto) 8 % (0-12); Neutrophils # (Auto) 4.8 Thou/mm3 (1.8-7.7); Neutrophils % (Auto) 65 % (37-80); Nucleated Red Blood Cell # 0.00 Thou/mm3 (0.00-0.00); Nucleated Red Blood Cell % 0 /100 WBC (0); Platelet Count 270 Thou/mm3 (140-440); RDW Standard Deviation 49.7 fL (35.1-43.9); Red Blood Count 4.66 Miln/mm3 (4.50-5.90); White Blood Count 7.4 Thou/mm3 (3.8-10.6)
--- NOTE | 2025-07-20 15:51 | XR_ITS ---
Examination: Venous duplex lower extremity sonogram, bilateral. Date and time of exam: July 20, 2025, 1619 hours INDICATIONS: Leg edema and swelling 2 months Technique: Multiple sonographic images of the deep venous system have been obtained. B-mode/2-D grayscale imaging of vascular structures and Doppler spectral analysis (waveforms) and color performed Both legs are examined. Findings: Deep venous systems do not demonstrate abnormal echogenicity. Poor compressibility right superficial femoral right peroneal veins secondary to edema All visualized deep veins exhibit augmentation. Impression: Limited study, no DVT demonstrated
--- NOTE | 2025-07-20 15:59 | PD.EDSOB ---
ED SOB =RME/HPI General Chief Complaint: Shortness of Breath/Dyspnea Stated Complaint: SOB X 2 days Time Seen by Provider: 07/20/25 14:25 Arrival date/time: 07/20/25 13:41 RME / HPI RME / HPI Narrative: 07/20/25 13:41 This is a 50-year-old male that comes into the emergency room with complaints of shortness of breath on and off for the past few days. Patient states he denies chest pain. Patient denies any runny nose, fever, sore throat, cough. Patient denies any fever, chills. Patient states he only has shortness of breath. Patient does have a history of diabetes, high blood pressure. 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 In June of this year patient was admitted for sepsis secondary to cellulitis to right lower extremity. At that time it was found that patient was having heart failure and high blood pressure. Patient also had an acute kidney injury at that time but according to notes it resolved. I have greeted and performed a focused initial assessment of this patient. Initial appropriate labs ordered at this time. A comprehensive ED assessment and evaluation of the patient and analysis of all test and completion of medical decision making process will be conducted by additional ED provider. Exam: Awake alert, breathing even and unlabored, skin warm and dry Impression: Shortness of breath Related Data Previous Rx's ?Medication ?Instructions ?Recorded amoxicillin 875 mg-potassium 1 tab PO BID #22 tabs 06/06/25 clavulanate 125 mg tablet blood-glucose sensor (FreeStyle #1 ea 06/06/25 Asuncion 3 Plus Sensor device) carvedilol 3.125 mg tablet 6.25 mg (2 x 3.125 mg) PO BIDWM 06/06/25 #30 tabs doxycycline hyclate 100 mg tablet 100 mg PO BID #22 tabs 06/06/25 insulin degludec 200 unit/mL (3 48 unit (0.24 mL) subcut QDAY #9 mL 06/06/25 mL) subcutaneous pen melatonin 3 mg tablet 3 mg PO HS PRN Sleeplessness #30 06/06/25 tabs metformin 1,000 mg tablet 1,000 mg PO BID #30 tabs 06/06/25 pen needle, diabetic 31 gauge x #100 ea 11/06/25 1/4 (Comfort EZ Pen [place]) sacubitril 24 mg-valsartan 26 mg 0.5 tab PO BID #30 tabs 06/06/25 tablet Allergies Allergy/AdvReac Type Severity Reaction Status Date / Time No Known Allergies Allergy Verified 06/03/25 12:15 Course Quality Measures none Orders Category Date Time Status Bedside COVID-19 Antigen Test NOW Care 07/20/25 15:43 Active Bedside Influenza A&B Antigen Test NOW Care 07/20/25 15:[address] Screening NOW Care 07/20/25 15:[address] Screening NOW Care 07/20/25 17:25 Active EKG (ED ONLY) *Do not use* NOW Care 07/20/25 15:15 Completed Saline [Insert IV] NOW Care 07/20/25 15:43 Active Straight [In and Out Catheter] X1 Care 07/20/25 15:[address] angio chest Stat Exams 07/20/25 15:[address] angio chest Stat Exams 07/20/25 17:25 Ordered EKG (ED Only) Stat Exams 07/20/25 15:15 Draft US venous doppler LE BI Stat Exams 07/20/25 15:51 Completed XR chest 1V Stat Exams 07/20/25 15:15 Completed ABG [Arterial Blood Gas] Stat Lab 07/20/25 17:10 Completed Alcohol, Blood Medical Stat Lab 07/20/25 15:30 Received BNP [B-Type Natriuretic Peptide] Stat Lab 07/20/25 15:30 Completed Bilirubin,Direct Stat Lab 07/20/25 15:30 Received Blood Culture (Lab) Stat Lab 07/20/25 16:35 Received C-Reactive Protein Stat Lab 07/20/25 15:30 Received CBC Stat Lab 07/20/25 15:30 Completed Comprehensive Metabolic Panel Stat Lab 07/20/25 15:30 Received Creatine Kinase Stat Lab 07/20/25 15:30 Received D-Dimer Stat Lab 07/20/25 15:30 Completed Drug Screen,Urine Stat Lab 07/20/25 15:50 Ordered Hemoglobin A1C [Glycohemoglobin w (eAG)] Stat Lab 07/20/25 15:30 Completed Lactate (Lactic Acid) Stat Lab 07/20/25 16:30 Completed Magnesium Stat Lab 07/20/25 15:30 Received Procalcitonin Stat Lab 07/20/25 15:30 Received Sed Rate (ESR) Stat Lab 07/20/25 15:30 Completed Thyroid Stimulating Hormone Stat Lab 07/20/25 15:30 Received Troponin I Stat Lab 07/20/25 15:30 Received UA, C/S IF [Urinalysis, C/S if Indicated] Stat Lab 07/20/25 15:51 Ordered Furosemide Inj [Lasix Inj] Med 07/20/25 15:49 Discontinued 40 mg IVP X1 ONE Metoprolol Tartrate [Lopressor] Med 07/20/25 15:49 Discontinued 25 mg PO X1 ONE Morphine* Inj Med 07/20/25 15:49 Discontinued 2 mg IV X1 ONE Nitroglycerin Oint 2% [Nitro-paste Oint 2%] Med 07/20/25 15:49 Discontinued 2 inch TOP X1 ONE Vital Signs Vital signs: Vital Signs Temperature 98.0 F 07/20/25 14:57 Pulse Rate 114 H 07/20/25 14:57 Respiratory Rate 20 07/20/25 14:57 Blood Pressure 157/123 H 07/20/25 14:57 Pulse Oximetry (%) 98 07/20/25 14:57 Oxygen Delivery Method Room Air 07/20/25 14:57 Shortness of Breath / Dyspnea MDM Narrative MDM Narrative:: This section includes all my notes and documentations, including HPI, PE, and ED course. Kobi Chavez MD HPI: 42-year-old male here with 3-day history of worsening dyspnea and orthopnea and leg swelling. No chest pain. No fever or chills. No cough. No other complaints. ROS: All negative except as documented in HPI. Physical Exam: General: Alert and oriented. In mild respiratory distress. High BP noted. Eyes: Conjunctivae and lids clear. ENT: No nasal congestion. Neck: Supple. No JVD. Heart: Tachycardia noted with regular rhythm. Lungs: In mild respiratory distress. Mildly decreased air movement with rales. Abdomen: Soft and nontender. Legs: Significant lower leg edema noted. Skin: Warm and dry. Neuro: Alert and oriented X 3. I reviewed all RETURNED diagnostic test results: My interpretation of the EKG is sinus tachycardia. My interpretation of the chest x-ray is increased vascular congestion. My review of bilateral leg venous Doppler report is no DVT. Blood tests remarkable for D-dimer 933, HgbA1c 11.7%, BNP 1128. Urine specimen and COVID/influenza swabs and complete blood tests and chest CTA pending. At this point, diagnoses include: CHF exacerbation (06/04/25 echocardiogram showed EF 25-30%). Treatment here included: I ordered Lasix 40 mg IV, topical NTG, morphine 2 mg IV, and oral metoprolol 25 mg. At 6 PM on 07/20/2025, the care of the patient was transferred to Dr. Ramirez. Kobi Chavez MD Patient data External records reviewed:: [facility] previous records Clinical information provided by:: patient and spouse Social determinants that could affect healthcare access:: substance use Patient has the following chronic illnesses:: CHF DM How is presenting disease/condition affected by chronic disease/condition?: exacerbated by Evaluation data The following diagnostics were reviewed and interpreted by me:: lab results, radiology exam(s) and EKG tracing(s) (My interpretation of the EKG is: Sinus tachycardia (117 bpm) with nonspecific ST-T changes. Kobi Chavez MD) Lab and/or radiology exams considered but not ordered:: None Interpretation Summary: I reviewed all RETURNED diagnostic test results: My interpretation of the EKG is sinus tachycardia. My interpretation of the chest x-ray is increased vascular congestion. My review of bilateral leg venous Doppler report is no DVT. Blood tests remarkable for D-dimer 933, HgbA1c 11.7%, BNP 1128. Urine specimen and COVID/influenza swabs and complete blood tests and chest CTA pending. Medications / Prescriptions Medications or Prescriptions considered but not ordered:: None Medication administrations:: Medication Administration History Discontinued Medications Furosemide (Furosemide Inj 10 Mg/Ml 4ml Vial) 40 mg IVP X1 ONE Stop: 07/20/25 15:50 Metoprolol Tartrate (Metoprolol Tartrate 25 Mg Tablet) 25 mg PO X1 ONE Stop: 07/20/25 15:50 Morphine Sulfate (Morphine Sulf Inj 4 Mg/Ml Vial) 2 mg IV X1 ONE Stop: 07/20/25 15:50 Nitroglycerin (Nitroglycerin Oint 2% 1 Inch Packet) 2 inch TOP X1 ONE Stop: 07/20/25 15:50 I ordered Lasix 40 mg IV, topical NTG, morphine 2 mg IV, and oral metoprolol 25 mg. Consultations Consultation(s) initiated? (list below): No Diagnosis Shortness of Breath Differential Diagnosis: acute exacerbation of chronic obstructive airways disease, congestive heart failure, community acquired pneumonia, asthma with exacerbation and pulmonary embolism Most likely diagnosis given after review of the tests above:: CHF exacerbation Admission Indicated Admission indicated?: not indicated Explain why admission is indicated or not indicated:: Urine specimen and COVID/influenza swabs and complete blood tests and chest CTA pending. Admission Request Was there a request for admission?: No Disposition Plan Disposition Plan: other (specify) (At 6 PM on 07/20/2025, the care of the patient was transferred to Dr. Ramirez.) Discharge Plan Prescriptions/Referrals Prescriptions/Med Rec: No Action metformin 1,000 mg tablet 1,000 mg PO BID Qty: 30 2RF melatonin 3 mg Tablet 3 mg PO HS PRN (Reason: Sleeplessness) Qty: 30 0RF carvedilol 3.125 mg Tablet 6.25 mg PO BIDWM Qty: 30 2RF doxycycline hyclate 100 mg Tablet 100 mg PO BID Qty: 22 0RF sacubitril-valsartan 24-26 mg Tablet 0.5 tab PO BID Qty: 30 1RF amoxicillin-pot clavulanate 875-125 mg tablet 1 tab PO BID Qty: 22 0RF Rx Instructions: Take 1 tablet twice daily (DME) FreeStyle [place]uncion 3 Plus Sensor Device See Rx Instructions .Route Qty: 1 3RF Rx Instructions: As directed insulin degludec 200 unit/mL (3 mL) insulin pen 48 unit subcut QDAY Qty: 9 2RF (DME) pen needle, diabetic [Comfort EZ Pen [place]] 31 gauge x 1/4 needle See Rx Instructions .Route Qty: 100 3RF Rx Instructions: As directed Referrals: Sirena Bethea MD [Primary Care Provider, Internal Medicine] - In 1 week Problem List Clinical Impression: Shortness of breath Patient/Caregiver Discharge Instructions Print Language: Yi
[2025-07-20 16:23] LABS: B-Type Natriuretic Peptide 1128 pg/mL (0-100)
[2025-07-20 16:31] LABS: Glucose Estimated Average 289 mg/dL (80-131); Hemoglobin A1C 11.7 % Hgb (4.8-6.0)
[2025-07-20 16:37] LABS: Sed Rate (ESR) 2 mm/hr (0-15)
[2025-07-20 16:41] LABS: Alanine Aminotransferase 28 U/L (10-49); Albumin, Serum 3.3 gm/dL (3.5-5.0); Albumin/Globulin Ratio 0.9 (1.2-2.2); Alcohol, Blood Medical < 3.0 mg/dL (0-10.0); Alkaline Phosphatase 159 U/L (46-116); Anion Gap 9 (7-16); Aspartate Amino Transferase 18 U/L (0-34); BUN/Creatinine Ratio 14 Ratio (12-20); Bilirubin,Direct 0.3 mg/dL (0.0-0.3); Bilirubin,Total 1.0 mg/dL (0.3-1.2); Blood Urea Nitrogen 17 mg/dL (9-23); C-Reactive Protein < 0.5 mg/dL (0.0-0.9); Calcium 8.3 mg/dL (8.3-10.6); Calcium (Corrected) 8.9 mg/dL (8.5-10.1); Carbon Dioxide 25.2 mMol/L (20.0-31.0); Chloride 104 mMol/L (98-107); Creatine Kinase 94 U/L (34-171); Creatinine (Component) 1.2 mg/dL (0.6-1.3); Globulin 3.6 gm/dL (2.3-3.5); Magnesium 1.5 mg/dL (1.6-2.6); Osmolality,Calculated 299 (275-295); Potassium 4.4 mMol/L (3.4-5.1); Procalcitonin 0.07 ng/ml (0.0-0.49); Sodium 138 mMol/L (136-145); Thyroid Stimulating Hormone 1.73 uIU/mL (0.55-4.78); Total Protein 6.9 gm/dL (5.7-8.2); eGFR > 60 See Note
[2025-07-20 16:41] LABS: Lactate (Lactic Acid) 1.5 mMol/L (0.4-2.0)
[2025-07-20 16:54] LABS: D-Dimer 933 ng/mL (<600)
[2025-07-20 17:26] LABS: Troponin I 0.440 ng/mL (0.0-0.045)
[2025-07-20 17:27] LABS: Glucose 499 mg/dL (74-106)
[2025-07-20] MEDS: MORPHINE SULF INJ 4 MG/ML VIAL 2 MG IV (17:30)
[2025-07-20] MEDS: FUROSEMIDE INJ 10 MG/ML 4ML VIAL 40 MG IVP ×2 (17:31→18:35)
[2025-07-20] MEDS: NITROGLYCERIN OINT 2% 1 INCH PACKET 2 INCH TOP (17:34)
[2025-07-20] MEDS: METOPROLOL TARTRATE 25 MG TABLET PO (17:35)
--- NOTE | 2025-07-20 17:48 | PD.EDADDENDU ---
Emergency Room Addendum Addendum Narrative: In the previous note, I charted that the care of the patient was transferred to Dr. Ramirez but I was able to finish the care for the patient. HPI: 42-year-old male here with 3-day history of worsening dyspnea and orthopnea and leg swelling. No chest pain. No fever or chills. No cough. No other complaints. ROS: All negative except as documented in HPI. Physical Exam: General: Alert and oriented. In mild respiratory distress. High BP noted. Eyes: Conjunctivae and lids clear. ENT: No nasal congestion. Neck: Supple. No JVD. Heart: Tachycardia noted with regular rhythm. Lungs: In mild respiratory distress. Mildly decreased air movement with rales. Abdomen: Soft and nontender. Legs: Significant lower leg edema noted. Skin: Warm and dry. Neuro: Alert and oriented X 3. I reviewed all RETURNED diagnostic test results: My interpretation of the EKG is sinus tachycardia. My interpretation of the chest x-ray is increased vascular congestion. My review of bilateral leg venous Doppler report is no DVT. Blood tests remarkable for D-dimer 933, Glu 499, HgbA1c 11.7%, BNP 1128, Mg 1.5, and troponin 0.44. COVID/influenza negative. Urine specimen and COVID/influenza swabs and complete blood tests and chest CTA pending. At this point, diagnoses include: CHF exacerbation (06/04/25 echocardiogram showed EF 25-30%). Hyperglycemia Hypomagnesemia Elevated troponin Methamphetamine use Treatment here included: Lasix 40 mg IV Topical NTG Morphine 2 mg IV Oral metoprolol 25 mg No significant improvement noted. I discussed the case with our hospitalist.? About the presentation and exam and diagnostics and treatments here.? And need of further care in the hospital.? Agreed to accept the patient. Kobi Chavez MD
--- NOTE | 2025-07-20 18:32 | PD.RESCONSUL ---
HPI Data of Consult Patient: new to practice Consult date: 07/20/25 Requesting Physician: Jessica Mccrary MD Admitting Provider: Jessica Mccrary MD Attending Provider: Ramon Swartz MD Primary Care Provider: Sirena Bethea MD Consult Narrative History of present illness: Mr. 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 Patient reported for the last 3 days that he has had progressive shortness of breath which has been worsening, endorses difficulty breathing while lying flat and reports waking up in the middle of the night 4-5 times with the feeling that he is drowning. Patient complains of shortness of breath on rest, reports that he has bilateral lower extremity swelling, reported that he has recently ran out of his medication and was unable to see a sow farm barn technician outpatient. Patient otherwise denies any chest pain, palpitations, syncope, dizziness, fevers, chills, headache, nausea, vomiting and recent sick contacts. Of note patient was recently discharged in June 2025 for right lower extremity cellulitis. ED course: On presentation patient's blood pressure 157/123, heart rate 114, respiratory rate 20, temp 98.0, O2 sat 98 on room air. ED labs pertinent for WBC 7.4, hemoglobin 14.0, platelet count 270, D-dimer 933, potassium 4.4, sodium 138, chloride 104, anion gap 9, BUN 17, creatinine 1.2, GFR greater than 60, glucose 499, A1c 11.7, osmolality 299, lactate 1.5, calcium 8.9, magnesium 1.5, AST 18, ALT 28, alk phos 159, CK 94, troponin. 0.440, BNP 1128, albumin 3.3, Pro-Trace negative, TSH 1.73, blood alcohol level negative. Chest x-ray on presentation shows mild vascular congestion, EKG on presentation shows sinus tachycardia, rate 117, right bundle branch block. Bilateral venous Doppler negative for DVT. Cardiology consulted for acute decompensated heart failure in setting of chronic systolic and diastolic heart failure. 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 -Alcohol Use: Occasionally drinks alcohol -Illicit Drug Use: Last methamphetamine use June 2025 -Martial Status: lives with and son Family History: History of congestive heart failure in mother. cc:: cc: Review of Systems Review of Systems Systems Reviewed: All systems reviewed, normal except as documented Exam Vital Signs Temp Pulse Resp BP Pulse Ox O2 Del Method O2 Flow Rate 97.7 F 117 H 16 155/119 H 98 Nasal Cannula 4 07/20/25 18:20 07/20/25 18:20 07/20/25 18:20 07/20/25 18:20 07/20/25 18:20 07/20/25 18:20 07/20/25 18:20 Narrative Exam GENERAL: AOx3, no acute distress, on oxymask 4L HEENT: mucous membranes moist, bilateral sclera anicteric CARDIOVASCULAR: regular rate and rhythm, S1/S2 present, no murmurs appreciated PULMONARY: crackles at bilateral bases ABDOMINAL: soft, non-tender, non-distended, no rebound/guarding, bowel sounds present EXTREMITIES: 1+ pitting edema bilaterally, chronic venous stasis dermatitis SKIN: warm and dry, intact, no rashes NEURO: CN II-XII grossly intact, no focal deficits, alert, following commands Results Labs 07/21/25 05:00 07/21/25 05:00 Labs: Short CBC 07/20/25 Range/Units 15:30 WBC 7.4 (3.8-10.6) Thou/mm3 Hgb 14.0 (13.5-16.0) g/dL Hct 39.8 L (41.0-53.0) % Plt Count 270 (140-440) Thou/mm3 BMP 07/20/25 15:30 Sodium 138 Potassium 4.4 Chloride 104 Carbon Dioxide 25.2 BUN 17 Creatinine 1.2 Glucose 499 H* Calcium 8.3 Cardiac Enzymes 07/20/25 Range/Units 15:30 Total Creatine Kinase 94 (34-171) U/L Troponin I 0.440 H* (0.0-0.045) ng/mL Liver Function 07/20/25 Range/Units 15:30 Total Bilirubin 1.0 (0.3-1.2) mg/dL Direct Bilirubin 0.3 (0.0-0.3) mg/dL AST 18 (0-34) U/L ALT 28 (10-49) U/L Alkaline Phosphatase 159 H (46-116) U/L Albumin 3.3 L (3.5-5.0) gm/dL ABG Interpretation ABG results: 07/20/25 17:10 ABG pH Cancelled ABG pCO2 Cancelled ABG pO2 Cancelled ABG HCO3 Cancelled ABG O2 Saturation Cancelled ABG Base Excess Cancelled Quality Measures Quality Measures none Medications Home Medications and Allergies Home Medications ?Medication ?Instructions ?Recorded ?Confirmed ?Type ammonium lactate 12 % topical cream 1 applic topical QDAY PRN dry skin 07/21/25 07/21/25 History empagliflozin 25 mg tablet 25 mg PO QDAY 07/21/25 07/21/25 History (Jardiance) gabapentin 100 mg capsule 100 mg PO QDAY 07/21/25 07/21/25 History lisinopril 10 mg tablet 10 mg PO QDAY 07/21/25 07/21/25 History pioglitazone 45 mg tablet 45 mg PO QDAY 07/21/25 07/21/25 History sitagliptin phosphate 50 1 tab PO BID 07/21/25 07/21/25 History mg-metformin 1,000 mg tablet (Janumet) Allergies Allergy/AdvReac Type Severity Reaction Status Date / Time No Known Allergies Allergy Verified 06/03/25 12:15 Visit Medications Acetaminophen (Acetaminophen 325 Mg Tablet) 650 mg PO Q6HR PRN PRN Reason: Temp >100 or Pain 1-3 Stop: 08/19/25 18:19 Albuterol/Ipratropium (Albuterol/Ipratropium (Duoneb) Rt Jane 3 Ml Nebu) 3 ml INH Q2HR PRN PRN Reason: SHORTNESS OF BREATH OR WHEEZE Stop: 08/19/25 18:19 Dextrose (Dextrose 50%-Water Inj 50 Ml Syringe) 50 ml IV Q15MIN PRN PRN Reason: BG <50 OR BG <70 & pt unresponsive Stop: 08/19/25 18:11 Furosemide (Furosemide Inj 10 Mg/Ml 4ml Vial) 40 mg IVP BIDD COUNTS INCLUDE 234 BEDS AT THE [facility] Stop: 08/20/25 05:59 Glucagon (Glucagon Inj 1 Mg Vial) 1 mg IM Q15MIN PRN PRN Reason: BG <70, and no IV access Magnesium Sulfate (Magnesium Sulfate Ivpb) 4 gm in 50 mls @ 12.5 mls/hr IV X1 ONE Stop: 07/20/25 22:19 Insulin Human Lispro (Insulin Lispro (Admelog) 1 Unit/0.01 Ml Unit) 0 unit [facility]; Protocol Stop: 08/19/25 20:59 Metoprolol Succinate (Metoprolol Succinate Xl 25 Mg Tabcr) 25 mg PO QDAY COUNTS INCLUDE 234 BEDS AT THE [facility] Stop: 08/20/25 08:59 Ondansetron HCl (Ondansetron Inj 2 Mg/Ml Inj 2 Ml) 4 mg IVP Q6HR PRN; Protocol PRN Reason: NAUSEA OR VOMITING Stop: 08/19/25 18:19 Discontinued Medications Furosemide (Furosemide Inj 10 Mg/Ml 4ml Vial) 40 mg IVP X1 ONE Stop: 07/20/25 15:50 Last Admin: 07/20/25 17:31 Dose: 40 mg Furosemide (Furosemide Inj 10 Mg/Ml 4ml Vial) 40 mg IVP X1 ONE Stop: 07/20/25 18:13 Insulin Degludec (Insulin Degludec 5 Unit/0.05 Ml (Per 5 Units)) 25 unit SC X1 ONE Stop: 07/20/25 18:07 Insulin Human Regular (Insulin Hum Regular 1 Unit/0.01 Ml (Per Unit)) 10 unit IV X1 ONE Stop: 07/20/25 17:51 Metoprolol Succinate (Metoprolol Succinate Xl 25 Mg Tabcr) 25 mg PO QDAY COUNTS INCLUDE 234 BEDS AT THE [facility] Stop: 08/19/25 18:29 Metoprolol Tartrate (Metoprolol Tartrate 25 Mg Tablet) 25 mg PO X1 ONE Stop: 07/20/25 15:50 Last Admin: 07/20/25 17:35 Dose: 25 mg Morphine Sulfate (Morphine Sulf Inj 4 Mg/Ml Vial) 2 mg IV X1 ONE Stop: 07/20/25 15:50 Last Admin: 07/20/25 17:30 Dose: 2 mg Nitroglycerin (Nitroglycerin Oint 2% 1 Inch Packet) 2 inch TOP X1 ONE Stop: 07/20/25 15:50 Last Admin: 07/20/25 17:34 Dose: 2 inch Assessment & Plan Plan Assessment and plan: Summary: Mr. 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 Cardiology consulted to establish care for heart failure. #Acute decompensated heart failure #Congestive systolic and diastolic heart failure with reduced ejection fraction, EF 25-30% Patient reported for the last 3 days that he has had progressive shortness of breath which has been worsening, endorses difficulty breathing while lying flat and reports waking up in the middle of the night 4-5 times with the feeling that he is drowning. Patient complains of shortness of breath on rest, reports that he has bilateral lower extremity swelling, Bilateral lower extremity edema noted, BNP 1120, chest x-ray shows mild vascular congestion. Echocardiogram 06/04/2025: 1. Left ventricle size is normal and systolic function is severely reduced. Estimated ejection fraction is 25-30%. There is grade III diastolic dysfunction. There is mild concentric hypertrophy noted. 2. Right ventricle chamber size is moderately enlarged and systolic function is mildly reduced. Estimated RVSP moderately elevated is 49 mmHg. 3. Flattening of the ventricular septum in mid to late systole consistent with right ventricular volume overload. 4. There is mild to moderate mitral valve regurgitation. 5. There is moderate tricuspid valve regurgitation. mild pulmonary regurgitation. 6. The left atrium is moderately enlarged. The right atrium is moderately enlarged. 7. There is no and trivial pericardial effusion. No tamponade. Recommendations: ?Diuresis with Lasix 40 mg IV twice daily ?Strict intake and output, daily weight, fluid restriction 1500 cc, low-sodium diet ?Home dose Coreg 6.25 mg p.o. twice daily resumed, consider starting on ARNI as blood pressure permissible for GDMT ?Consider obtaining iron panel in a.m. ?Keep potassium greater than 4 and magnesium greater than 2 at all times #NSTEMI type II versus type I, likely type II demand ischemia Patient denies any chest pain. EKG on presentation shows sinus tachycardia rate 117, right bundle branch block. Troponin 0.440 Patient's underlying troponin elevation in setting of demand ischemia Recommendations: ?Trend troponin until it downtrends ? Obtain TSH, lipid panel, A1c for cardiac restratification ?Monitor for chest pain #Hypertension Continue Coreg, consider starting sacubitril/valsartan if blood pressure permissible due to HFrEF #Hyperlipidemia Obtain lipid panel, continue atorvastatin 40 mg at bedtime #Uncontrolled insulin-dependent diabetes mellitus, A1c 11.7 #Diabetic neuropathy #History of methamphetamine use #Elevated D-dimer Management as per primary team Thank you for the consult and allowing to participate in the care of the patient. Cardiology will continue to follow. Case discussed with Attending Physician Dr. Ramon Nguyen MD Internal Medicine PGY-2 Disclaimer: This note was dictated by speech recognition. Minor errors in glass artist may be present due to voice recognition software. Attending Provider Attestation/Addendum I have personally seen and examined the patient separately on the above date of service and discussed the plan of care with the resident. I reviewed the resident Dr. Daria Nguyen consultation progress note and agree with the resident findings and plan in the note above and have also edited the documentation to reflect my findings and plan. Ramon Swartz M.D. Interventional Cardiology
[2025-07-20] MEDS: INSULIN HUM REGULAR 1 UNIT/0.01 ML (PER UNIT) 10 UNIT IV (18:33)
[2025-07-20] MEDS: INSULIN DEGLUDEC 5 UNIT/0.05 ML (PER 5 UNITS) 25 UNIT SC (18:36)
[2025-07-20] MEDS: Magnesium Sulfate 4 GM Ivpb 4 GM/50 ML BAG IV (18:37)
--- NOTE | 2025-07-20 18:38 | ESHP_ITS ---
<Statement entered by Jonatan Egan MD - 07/20/25 19:27> I saw and examined patient personally and supervised PGY 1 resident, Dr. Gunderson with formulating a management plan. I agree with the documentation with the exceptions as listed below. Isra Ramirez 50M pmhx significant for IDDM2 with neuropathy, HTN, HFrEF (25- 30%), hx of methamphetamine use, hx of valley fever who presents with orthopnea and PND. Problem list: 1. Acute respiratory failure with hypoxia secondary to acute decompensated chronic diastolic and systolic congestive heart failure exacerbation [25-30%] 2. Hyperglycemia 3. Uncontrolled insulin-dependent diabetes mellitus type 2 [11.7%] 4. Diabetic neuropathy 5. NSTEMI type I versus type II 6. Elevated D-dimer Patient presented today with worsening shortness of breath and orthopnea for a 1 week. He said that he was recently discharged from the hospital after being admitted from 06/03 - 06/06 and treated for right leg cellulitis. He was also newly diagnosed with heart failure on that admission. Patient stated that since discharge she has run out of medication and was unable to follow-up with a director case management in the time. He also states that he is compliant with his insulin regimen, however on presentation his blood glucose was elevated at 490. For patient's hyperglycemia, insulin regular 10 units IV x 1 was given along with insulin degludec 25 units SC x 1. Will follow-up on blood glucose and increase insulin as necessary. With regards to patient's CHF exacerbation, Lasix 80 mg IV x 1 and metoprolol tartrate 25 mg p.o. x 1 was given in the ED. Scheduled on Lasix 40 mg IV twice daily from tomorrow. Will continue with aggressive diuresis and strict input output charting. His elevated D-dimer and troponin are also likely secondary to his CHF exacerbation as patient currently denies any chest pain and shortness of breath can be explained by his CHF. Wells score also low at 1.5 and lower extremity duplex was negative for DVT so low probability of PE. Interventional cardiology, Dr. Swartz was consulted. Appreciate recommendations. Plan of care discussed with Attending Dr. Demetra Egan MD PGY 2 Disclaimer: This note was dictated by speech recognition. Minor errors in chainstitch pants outseamer may be present due to voice recognition software. Documentation for date of: 07/20/25 HPI History of Present Illness Chief complaint: SOB History of present illness: Isra Ramirez 50M pmhx significant for IDDM2 with neuropathy, HTN, HFrEF (25- 30%), hx of methamphetamine use, hx of valley fever who presents with orthopnea. Patient reports that for the past 3 days he has had increasing orthopnea and worsening PND waking up 4-5 times at night feeling as if he is drowning. Denies dyspnea on exertion only shortness of breath at rest. States that his legs swell alternatively sometimes the left leg then right leg or just toes swelling. Reports being adherent to medications on previous discharge such as carvedilol and Entresto but ran out of medication as he has not seen director case management, appointment is on August 03. Denies chest pain, fever/chills, recent illness or travel. Endorses adherence to medication. Was recently discharged 06/2025 for right lower extremity cellulitis and completed antibiotics; did not have CHF exacerbation at the time. PMHx: as above Surgical Hx: none FHx: Mother CHF, denies familial cancer history Social Hx: Quit smoking 5 years ago smoked for 30 years 1 pack/day, 64-plaw-rrxf history, occasionally drinks alcohol, endorses last meth use last admission in 06/25. Lives in [place] with and son. Uses walker to walk. Independent with ADLs. Allergies: NKDA Medications: pioglitazone 45 mg QD, gabapentin 100 mg BID, lisinopril 10 mg QD, Jardiance 25 mg QD, Janumet mg QD, Tresiba 48u QD, In ED, BP 157/123 HR 114 RR 20 afebrile saturating 98% 4L NC, significant labs include creatinine 1.2, glucose 409, D-dimer 933, magnesium 1.5, A1c 11.7 increase from 10.7 on 06/2025, troponin 0.44, BNP 1128, Ddimer 933. In ED, given morphine 2 mg x 1, furosemide 80 mg x 1, nitro patch, metoprolol tartrate 25 mg x 1, regular insulin 10 units, mag 4g x1. EKG shows sinus tachycardia 117, QTc 478. Bilateral lower extremity ultrasound negative for DVT however limited. Patient was admitted for acute on chronic HFrEF exacerbation and severe hyperglycemia. Review of Systems Review of Systems Systems Reviewed: All systems reviewed, normal except as documented Exam Vital Signs Temp Pulse Resp BP Pulse Ox O2 Del Method O2 Flow Rate 97.7 F 117 H 16 155/119 H 98 Nasal Cannula 4 07/20/25 18:20 07/20/25 18:35 07/20/25 18:20 07/20/25 18:35 07/20/25 18:20 07/20/25 18:20 07/20/25 18:20 Narrative Exam GENERAL: AOx3, no acute distress, on oxymask 4L HEENT: mucous membranes moist, bilateral sclera anicteric CARDIOVASCULAR: regular rate and rhythm, S1/S2 present, no murmurs appreciated PULMONARY: crackles at bilateral bases ABDOMINAL: soft, non-tender, non-distended, no rebound/guarding, bowel sounds present EXTREMITIES: trace pitting edema bilaterally, chronic venous stasis dermatitis SKIN: warm and dry, intact, no rashes NEURO: CN II-XII grossly intact, no focal deficits, alert, following commands Results: Labs 07/21/25 05:00 07/21/25 05:00 Labs: Short CBC 07/20/25 Range/Units 15:30 WBC 7.4 (3.8-10.6) Thou/mm3 Hgb 14.0 (13.5-16.0) g/dL Hct 39.8 L (41.0-53.0) % Plt Count 270 (140-440) Thou/mm3 BMP 07/20/25 15:30 Sodium 138 Potassium 4.4 Chloride 104 Carbon Dioxide 25.2 BUN 17 Creatinine 1.2 Glucose 499 H* Calcium 8.3 Cardiac Enzymes 07/20/25 Range/Units 15:30 Total Creatine Kinase 94 (34-171) U/L Troponin I 0.440 H* (0.0-0.045) ng/mL Liver Function 07/20/25 Range/Units 15:30 Total Bilirubin 1.0 (0.3-1.2) mg/dL Direct Bilirubin 0.3 (0.0-0.3) mg/dL AST 18 (0-34) U/L ALT 28 (10-49) U/L Alkaline Phosphatase 159 H (46-116) U/L Albumin 3.3 L (3.5-5.0) gm/dL ABG Interpretation ABG results: 07/20/25 17:10 ABG pH Cancelled ABG pCO2 Cancelled ABG pO2 Cancelled ABG HCO3 Cancelled ABG O2 Saturation Cancelled ABG Base Excess Cancelled Quality Measures Quality Measures none Medications Home Medications and Allergies Home Medications ?Medication ?Instructions ?Recorded ?Confirmed ?Type ammonium lactate 12 % topical cream 1 applic topical Q DAY PRN dry skin 07/21/25 07/21/25 History empagliflozin 25 mg tablet 25 mg PO QDAY 07/21/2507/02 History (Jardiance) gabapentin 100 mg capsule 100 mg PO QDAY 07/21/2507/02 History lisinopril 10 mg tablet 10 mg PO QDAY 07/21/2507/21 History pioglitazone 45 mg tablet 45 mg PO QDAY 07/21/2507/21 History sitagliptin phosphate 50 1 tab PO BID 07/21/25 History mg-metformin 1,000 mg tablet (Janumet) Allergies Allergy/AdvReac Type Severity Reaction Status Date / Time No Known Allergies Allergy Verified 06/03/25 12:15 Visit Medications Acetaminophen (Acetaminophen 325 Mg Tablet) 650 mg PO Q6HR PRN PRN Reason: Temp >100 or Pain 1-3 Stop: 08/19/25 18:19 Albuterol/Ipratropium (Albuterol/Ipratropium (Duoneb) Rt Jane 3 Ml Nebu) 3 ml INH Q2HR PRN PRN Reason: SHORTNESS OF BREATH OR WHEEZE Stop: 08/19/25 18:19 Carvedilol (Carvedilol 3.125 Mg Tablet) 6.25 mg PO BIDWM COUNT INCLUDES THE [facility] Stop: 08/20/25 07:59 Dextrose (Dextrose 50%-Water Inj 50 Ml Syringe) 50 ml IV Q15MIN PRN PRN Reason: BG <50 OR BG <70 & pt unresponsive Stop: 08/19/25 18:11 Furosemide (Furosemide Inj 10 Mg/Ml 4ml Vial) 40 mg IVP BIDD COUNT INCLUDES THE [facility] Stop: 08/20/25 05:59 Glucagon (Glucagon Inj 1 Mg Vial) 1 mg IM Q15MIN PRN PRN Reason: BG <70, and no IV access Magnesium Sulfate (Magnesium Sulfate Ivpb) 4 gm in 50 mls @ 12.5 mls/hr IV X1 ONE Stop: 07/20/25 22:19 Last Admin: 07/20/25 18:37 Dose: 12.5 mls/hr Insulin Human Lispro (Insulin Lispro (Admelog) 1 Unit/0.01 Ml Unit) 0 unit SC [facility]; Protocol Stop: 08/19/25 20:59 Ondansetron HCl (Ondansetron Inj 2 Mg/Ml Inj 2 Ml) 4 mg IVP Q6HR PRN; Protocol PRN Reason: NAUSEA OR VOMITING Stop: 08/19/25 18:19 Discontinued Medications Furosemide (Furosemide Inj 10 Mg/Ml 4ml Vial) 40 mg IVP X1 ONE Stop: 07/20/25 15:50 Last Admin: 07/20/25 17:31 Dose: 40 mg Furosemide (Furosemide Inj 10 Mg/Ml 4ml Vial) 40 mg IVP X1 ONE Stop: 07/20/25 18:13 Last Admin: 07/20/25 18:35 Dose: 40 mg Insulin Degludec (Insulin Degludec 5 Unit/0.05 Ml (Per 5 Units)) 25 unit SC X1 ONE Stop: 07/20/25 18:07 Last Admin: 07/20/25 18:36 Dose: 25 unit Insulin Human Regular (Insulin Hum Regular 1 Unit/0.01 Ml (Per Unit)) 10 unit IV X1 ONE Stop: 07/20/25 17:51 Last Admin: 07/20/25 18:33 Dose: 10 unit Metoprolol Succinate (Metoprolol Succinate Xl 25 Mg Tabcr) 25 mg PO QDAY COUNT INCLUDES THE [facility] Stop: 08/19/25 18:29 Metoprolol Succinate (Metoprolol Succinate Xl 25 Mg Tabcr) 25 mg PO QDAY COUNT INCLUDES THE [facility] Stop: 08/20/25 08:59 Metoprolol Tartrate (Metoprolol Tartrate 25 Mg Tablet) 25 mg PO X1 ONE Stop: 07/20/25 15:50 Last Admin: 07/20/25 17:35 Dose: 25 mg Morphine Sulfate (Morphine Sulf Inj 4 Mg/Ml Vial) 2 mg IV X1 ONE Stop: 07/20/25 15:50 Last Admin: 07/20/25 17:30 Dose: 2 mg Nitroglycerin (Nitroglycerin Oint 2% 1 Inch Packet) 2 inch TOP X1 ONE Stop: 07/20/25 15:50 Last Admin: 07/20/25 17:34 Dose: 2 inch Assessment & Plan Plan Isra Ramirez 50M pmhx significant for IDDM2 with neuropathy, HTN, HFrEF (25- 30%), hx of methamphetamine use, hx of valley fever who presents with orthopnea and PND. #Acute hypoxic respiratory failure 2/2 #Acute on chronic HFrEF (25-30%), NYHA IV, stage D Presented with 3 days of orthopnea and PND, denies dyspnea on exertion and has inconsistent leg swelling (L vs R and sometimes toes vs legs). On admission satuaring 98% on 4L NC, BNP 1128. CXR: mild heart failure. Endorses ran out of Entresto and carvedilol from prior admission as he has not seen a director case management since. Plan: - IV lasix 40 mg BID, goal net neg 2-3L over 24h - Strict I&Os, daily weights, 1.5L fluid restriction - Carvedilol 6.25 mg BID and hold entresto to keep room for diuresis (metoprolol caused reflux) - Keep K>4 and Mg>2 at all times - F/u anemia workup and and lipid panel - Cardiology consulted, recs appreciated #Hyperglycemia #IDDM2 #Diabetic neuropathy On admission glucose 499 with bicarb 25. Reports being adherent to 48u of Tresiba and metformin. s/p insulin degludac 25u and regular 10u in ED Plan: - Insulin degludac 25u in ED as patient already took morning dose, will follow PM glucose to start degludac tomorrow morning - SSI step 3 #NSTEMI, likely type II On admission troponin 0.44 likely demand ischemia iso volume overload. Plan: - Trend troponin until downtrend #Hx of methamphetamine use Admits last use 06/2025 on previous admission, smoked. Plan: - F/u UDS - Counseled extensively regarding cessation #Elevated d-dimer On admission Ddimer 933. BLE US neg for DVT but limited study. Wells score 1.5, low risk. Plan: - Will defer CTA chest due to low Wells score. Hospital management: Lines: PIV Diet: carb consistent low, 1.5L fluid restric Bowel: none GI prophylaxis: not indicated DVT prophylaxis: Disposition: tele, CHF exacerbation IV diuresis CODE STATUS: FULL CODE Plan of care discussed with attending Dr. Mccrary, and PGY-2 DrMegan Gunderson, PGY-1 Internal Medicine Attending Provider Attestation/Addendum I have seen and examined the patient. I was physically present for the william portions of the services provided including history, physical exam, diagnosis, treatment plans and orders. I agree with assessment and plan of care as documented by residents. After examination of the patient and review of the clinical data I feel that this patient needs admission to the hospital for further treatment/evaluation. Even though this this note was carefully revised there may still be minor errors in chainstitch pants outseamer due to voice recognition software. Jessica Mccrary MD
--- NOTE | 2025-07-20 21:48 | PC.NURSE ---
DR GROSS MADE AWARE OF PATIENTS BS OF 63. HE ADVISED TO GIVE FOOD AND JUICE AND RECHECK IN AN HOUR
--- NOTE | 2025-07-20 21:56 | PC.NURSE ---
pt is alert and oriented. states he is feeling and breathimng much better. has voided 2000cc.blood sugrechecked and was low. asympotomatic. pt given juice and sadwitch.
[2025-07-20 22:14] LABS: Troponin I 0.444 ng/mL (0.0-0.045)
[2025-07-20] MEDS: HEPARIN SOD INJ 5000 UNIT/ML VIAL SC (23:01)
[2025-07-21] VITALS (11 sets, daily range): BP systolic 125–149; BP diastolic 97–116; PULSE 97–125; RESP 11–19; TEMP 35.8–36.5; O2SAT 96–100; BMI 25.3
[2025-07-21] MEDS: ACETAMINOPHEN 325 MG TABLET 650 MG PO (04:01)
[2025-07-21] MEDS: FUROSEMIDE INJ 10 MG/ML 4ML VIAL 40 MG IVP ×2 (05:19→17:58)
[2025-07-21] MEDS: HEPARIN SOD INJ 5000 UNIT/ML VIAL SC ×3 (05:26→21:02)
[2025-07-21 06:21] LABS: Basophils # (Auto) 0.1 Thou/mm3 (0.0-0.2); Basophils % (Auto) 1 % (0-2.5); Eosinophils # (Auto) 0.2 Thou/mm3 (0.0-0.5); Eosinophils % (Auto) 2 % (0-10); Hematocrit 40.0 % (41.0-53.0); Hemoglobin 14.1 g/dL (13.5-16.0); Immature Granulocytes Auto 0.06 Thou/mm3 (0.00-0.00); Immature Reticulocyte Fraction 28.2 % (2.3-13.4); Lymphocytes # (Auto) 2.2 Thou/mm3 (1.0-4.8); Lymphocytes % (Auto) 20 % (10-50); Mean Corpuscular HGB Conc 35.3 g/dl (31.0-37.0); Mean Corpuscular Hemoglobin 30.3 pg (25.0-35.0); Mean Corpuscular Volume 86 fL (80-100); Monocytes # (Auto) 0.8 Thou/mm3 (0.0-0.8); Monocytes % (Auto) 8 % (0-12); Neutrophils # (Auto) 7.5 Thou/mm3 (1.8-7.7); Neutrophils % (Auto) 70 % (37-80); Nucleated Red Blood Cell # 0.02 Thou/mm3 (0.00-0.00); Nucleated Red Blood Cell % 0 /100 WBC (0); Platelet Count 295 Thou/mm3 (140-440); RDW Standard Deviation 49.3 fL (35.1-43.9); Red Blood Count 4.66 Miln/mm3 (4.50-5.90); Reticulocyte % (Auto) 1.4 % (0.5-1.5); Reticulocyte Absolute Auto 64.8 Biln/L (25.0-75.0); Reticulocyte Hgb Content 27.7 pg (28.0-35.0); White Blood Count 10.7 Thou/mm3 (3.8-10.6)
[2025-07-21] MEDS: DEXTROSE 50%-WATER INJ 50 ML SYRINGE IV (07:10)
--- NOTE | 2025-07-21 07:18 | XR_ITS ---
EXAMINATION: AP chest single view TECHNIQUE: AP portable upright chest single view Date and time: July 21, 2025, 0849 hours, comparison July 20, 2025 INDICATIONS: Hypoxia today. FINDINGS: Moderate enlargement cardiac contour Prominent vascular congestion Diffuse opacity in the right lung Prominent osteopenia IMPRESSION: Diffuse right lung pneumonia Mild heart failure
--- NOTE | 2025-07-21 07:31 | PC.NURSE ---
During report Blood sugar was checked on pt with a result of 47. Pt appeared tired but able to respond. Dextrose iv was given immediately and bs rechecked at 116. Pt sitting verbal and stable at this time having breakfast MD Egan notified over the phone per MD will come see pt no new orders at this time.
[2025-07-21 08:04] LABS: Alanine Aminotransferase 31 U/L (10-49); Albumin, Serum 3.5 gm/dL (3.5-5.0); Albumin/Globulin Ratio 1.0 (1.2-2.2); Alkaline Phosphatase 136 U/L (46-116); Anion Gap 11 (7-16); Aspartate Amino Transferase 26 U/L (0-34); BUN/Creatinine Ratio 18 Ratio (12-20); Bilirubin,Total 1.0 mg/dL (0.3-1.2); Blood Urea Nitrogen 22 mg/dL (9-23); Calcium 8.7 mg/dL (8.3-10.6); Calcium (Corrected) 9.1 mg/dL (8.5-10.1); Carbon Dioxide 27.5 mMol/L (20.0-31.0); Cardiac Risk Estimate 3.3 RATIO (4.0-6.7); Chloride 107 mMol/L (98-107); Cholesterol 140 mg/dL (132-200); Creatinine (Component) 1.2 mg/dL (0.6-1.3); Estimated Creatinine Clearance 75.3 mL/min (>60); Globulin 3.6 gm/dL (2.3-3.5); Glucose 84 mg/dL (74-106); HDL Cholesterol 43 mg/dL (40-60); LDL Cholesterol,Calculated 81 mg/dL (0-130); Magnesium 2.0 mg/dL (1.6-2.6); Osmolality,Calculated 291 (275-295); Phosphorous 5.1 mg/dL (2.4-5.1); Potassium 4.0 mMol/L (3.4-5.1); Sodium 145 mMol/L (136-145); Total Protein 7.1 gm/dL (5.7-8.2); Triglycerides 79 mg/dL (30-150); eGFR > 60 See Note
[2025-07-21 08:18] LABS: Collection Type, Urine Clean Catch
[2025-07-21 08:47] LABS: Bilirubin,Urine Negative (Negative); Blood,Urine Trace (Negative); Clarity,Urine Clear (Clear/Hazy); Color,Urine Lt-Yellow (Lt Yel-Yel); Culture Indicated,Urine Not Indicated; Glucose, Urine Negative (Negative); Ketones,Urine Negative (Negative); Leukocyte Esterase,Urine Negative (Negative); Nitrite,Urine Negative (Negative); PH,Urine 6.0 (5.0-7.0); Protein,Urine 1+ (Neg - Trace); RBC,Urine 1 /hpf (0-3); Specific Gravity,Urine 1.009 (1.001-1.035); Squamous Epithelial Cell,Urine < 1 /hpf (0-5); Urobilinogen,Urine Negative mg/dL (0.0-1.0); WBC,Urine < 1 /hpf (0-5)
[2025-07-21 10:36] LABS: Amphetamine/Methamp Scrn,U Positive (Negative); Barbiturate Screen,Urine Negative (Negative); Benzodiazepines Screen,Urine Negative (Negative); Benzoylecgonine Screen, Ur Negative (Negative); Fentanyl Screen,Urine Negative (Negative); Opiate Screen,Urine Negative (Negative); THC Screen,Urine Negative (Negative)
[2025-07-21] MEDS: GABAPENTIN 100 MG CAPSULE PO (10:44)
--- NOTE | 2025-07-21 12:52 | ESPR_ITS ---
<Statement entered by Daria Nguyen MD - 07/21/25 18:14> Patient was seen and examined by me personally. I have reviewed the below documentation by the team resident Dr Duran Lopes DO PGY-1 and agree with its findings. Mr. 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 Patient admitted for further workup for acute decompensated heart failure, 07/21-continue diuresis with Lasix 40 IV twice daily, recommend changing Coreg to metoprolol 25 mg p.o. daily and will start patient on sacubitril/valsartan when blood pressure permissible. Iron panel shows iron 44, TIBC 249, iron saturation 17%, iron sat iron binding 205 and ferritin 315, will give IV iron x 1. Lipid panel shows triglycerides 79, cholesterol 140, LDL 81, HDL 43, hemoglobin A1c 11.7, TSH 1.73 ASCVD risk score 14.4%: Risk of cardiovascular event in next 10 years. High intensity statin recommended. Prevent risk of cardiovascular disease events, A1c model: 27.55% 10-year total CVD risk, 10-year heart failure risk 19.6, 10-year coronary heart disease risk 7.77 percent, 10-year stroke risk 8.69% Repeat echocardiogram ordered, will follow. Thank you for the consult and allowing to participate in the care of the patient. Cardiology will continue to follow. Case discussed with Attending Physician Dr. Ramon Nguyen MD Internal Medicine PGY-2 Disclaimer: This note was dictated by speech recognition. Minor errors in per diem may be present due to voice recognition software. Documentation for date of: 07/21/25 Subjective Subjective Interval history: History of Present Illness: Mr. 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 Patient reported for the last 3 days that he has had progressive shortness of breath which has been worsening, endorses difficulty breathing while lying flat and reports waking up in the middle of the night 4-5 times with the feeling that he is drowning. 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 Patient otherwise denies any chest pain, palpitations, syncope, dizziness, fevers, chills, headache, nausea, vomiting and recent sick contacts. Of note patient was recently discharged in June 2025 for right lower extremity cellulitis. ED course: On presentation patient's blood pressure 157/123, heart rate 114, respiratory rate 20, temp 98.0, O2 sat 98 on room air. ED labs pertinent for WBC 7.4, hemoglobin 14.0, platelet count 270, D-dimer 933, potassium 4.4, sodium 138, chloride 104, anion gap 9, BUN 17, creatinine 1.2, GFR greater than 60, glucose 499, A1c 11.7, osmolality 299, lactate 1.5, calcium 8.9, magnesium 1.5, AST 18, ALT 28, alk phos 159, CK 94, troponin. 0.440, BNP 1128, albumin 3.3, Pro-Trace negative, TSH 1.73, blood alcohol level negative. Chest x-ray on presentation shows mild vascular congestion, EKG on presentation shows sinus tachycardia, rate 117, right bundle branch block. Bilateral venous Doppler negative for DVT. Cardiology consulted for acute decompensated heart failure in setting of chronic systolic and diastolic heart failure. 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 -Alcohol Use: Occasionally drinks alcohol -Illicit Drug Use: Last methamphetamine use June 2025 -Martial Status: lives with and son Family History: History of congestive heart failure in mother. 07/20/2025: Diuresis with Lasix 40 mg IV twice daily, Home dose Coreg 6.25 mg p.o. twice daily resumed, consider starting on ARNI as blood pressure permissible for GDMT, Trend troponin until it downtrends 07/21/2025: No Overnight events. Labs reviewed and patient examined at the bedside. Continue IV Lasix 40mg bid. Recommend changing Coreg to Metoprolol 25mg po qd. Start patient on Sacubitril-Valsartan when BP is permissible. Continue to trend troponin. Mg 2.0, K:4.0, Cr: 1.2, UoP:2.4L. Denies chest pain, palpation, abdominal pain, N/V, fevers or chills. Exam Vital Signs Temp Pulse Resp BP Pulse Ox O2 Del Method O2 Flow Rate 96.5 F L 125 H 19 125/97 H 98 Nasal Cannula 2 07/21/25 12:00 07/21/25 12:00 07/21/25 12:00 07/21/25 12:00 07/21/25 12:00 07/21/25 12:00 07/21/25 12:00 FiO2 2 07/21/25 08:00 Narrative Exam GENERAL: AOx3, no acute distress, on NC 2L HEENT: mucous membranes moist, bilateral sclera anicteric CARDIOVASCULAR: regular rate and rhythm, S1/S2 present, no murmurs appreciated PULMONARY: crackles at bilateral bases ABDOMINAL: soft, non-tender, non-distended, no rebound/guarding, bowel sounds present EXTREMITIES: 1+ pitting edema bilaterally, chronic venous stasis dermatitis SKIN: warm and dry, intact, no rashes NEURO: CN II-XII grossly intact, no focal deficits, alert, following commands Objective Labs 07/22/25 04:38 07/22/25 04:38 Labs: Laboratory Results - last 24 hr 07/20/25 07/20/25 07/20/25 15:30 16:30 17:10 WBC 7.4 RBC 4.66 Hgb 14.0 Hct 39.8 L MCV 85 MCH 30.0 MCHC 35.2 RDW Std Deviation 49.7 H Plt Count 270 Neut % (Auto) 65 Lymph % (Auto) 25 [place] % (Auto) 8 Eos % (Auto) 2 Baso % (Auto) 0 Neut # (Auto) 4.8 Lymph # (Auto) 1.8 [place] # (Auto) 0.6 Eos # (Auto) 0.1 Baso # (Auto) 0.0 Immature Gran # (Auto) 0.04 H Absolute Nucleated RBC 0.00 Immature Gran % 1 H Nucleated RBC % 0 ESR 2 Retic Count (auto) Absolute Retic Immature Retic Fraction Retic Hgb Content CHr D-Dimer 933 H Puncture Site Cancelled ABG pH Cancelled ABG pCO2 Cancelled ABG pO2 Cancelled ABG HCO3 Cancelled ABG O2 Saturation Cancelled ABG Base Excess Cancelled Oxygen Liter Flow Cancelled FiO2 Cancelled Sodium 138 Potassium 4.4 Chloride 104 Carbon Dioxide 25.2 Anion Gap 9 BUN 17 Creatinine 1.2 Estim Creat Clear Calc Not Performed. eGFR > 60 BUN/Creatinine Ratio 14 Glucose 499 H* Estimated Ave Glu mg/dL 289 H Hemoglobin A1c 11.7 H Calculated Osmolality 299 H Lactic Acid 1.5 Calcium 8.3 Corrected Calcium 8.9 Phosphorus Magnesium 1.5 L Total Bilirubin 1.0 Direct Bilirubin 0.3 AST 18 ALT 28 Alkaline Phosphatase 159 H Total Creatine Kinase 94 Troponin I 0.440 H* C-Reactive Prot, Quant < 0.5 B-Natriuretic Peptide 1128 H* Total Protein 6.9 Albumin 3.3 L Globulin 3.6 H Albumin/Globulin Ratio 0.9 L Triglycerides Cholesterol LDL Cholesterol, Calc HDL Cholesterol Cholesterol/HDL Ratio Procalcitonin 0.07 TSH 1.73 Ur Collection Type Urine Color Urine Clarity Urine pH Ur Specific [place] Urine Protein Urine Glucose (UA) Urine Ketones Urine Blood Urine Nitrite Urine Bilirubin Urine Urobilinogen (Auto) Ur Leukocyte Esterase Urine RBC Urine WBC Ur Squamous Epith Cells Urine Bacteria Ur Culture Indicated? Urine Opiates Screen Urine Fentanyl Screen Ur Barbiturates Screen U Amphetamin/Meth Scrn U Benzodiazepines Scrn U Cocaine Metab Screen U Marijuana (THC) Screen Ethyl Alcohol < 3.0 07/20/25 07/21/25 07/21/25 21:25 05:00 07:10 WBC 10.7 H D RBC 4.66 Hgb 14.1 Hct 40.0 L MCV 86 MCH 30.3 MCHC 35.3 RDW Std Deviation 49.3 H Plt Count 295 Neut % (Auto) 70 Lymph % (Auto) 20 [place] % (Auto) 8 Eos % (Auto) 2 Baso % (Auto) 1 Neut # (Auto) 7.5 Lymph # (Auto) 2.2 [place] # (Auto) 0.8 Eos # (Auto) 0.2 Baso # (Auto) 0.1 Immature Gran # (Auto) 0.06 H Absolute Nucleated RBC 0.02 H Immature Gran % 1 H Nucleated RBC % 0 ESR Retic Count (auto) 1.4 Absolute Retic 64.8 Immature Retic Fraction 28.2 H Retic Hgb Content CHr 27.7 L D-Dimer Puncture Site ABG pH ABG pCO2 ABG pO2 ABG HCO3 ABG O2 Saturation ABG Base Excess Oxygen Liter Flow FiO2 Sodium 145 Potassium 4.0 Chloride 107 Carbon Dioxide 27.5 Anion Gap 11 BUN 22 Creatinine 1.2 Estim Creat Clear Calc 75.3 eGFR > 60 BUN/Creatinine Ratio [address] Glu mg/dL Hemoglobin A1c Calculated Osmolality 291 Lactic Acid Calcium 8.7 Corrected Calcium 9.1 Phosphorus 5.1 Magnesium 2.0 Total Bilirubin 1.0 Direct Bilirubin AST 26 ALT 31 Alkaline Phosphatase 136 H D Total Creatine Kinase Troponin I 0.444 H* C-Reactive Prot, Quant B-Natriuretic Peptide Total Protein 7.1 Albumin 3.5 Globulin 3.6 H Albumin/Globulin Ratio 1.0 L Triglycerides 79 Cholesterol 140 LDL Cholesterol, Calc 81 HDL Cholesterol 43 Cholesterol/HDL Ratio 3.3 L Procalcitonin TSH Ur Collection Type Clean Catch Urine Color Lt-Yellow Urine Clarity Clear Urine pH 6.0 Ur Specific [place] 1.009 Urine Protein 1+ A Urine Glucose (UA) Negative Urine Ketones Negative Urine Blood Trace Urine Nitrite Negative Urine Bilirubin Negative Urine Urobilinogen (Auto) Negative Ur Leukocyte Esterase Negative Urine RBC 1 Urine WBC < 1 Ur Squamous Epith Cells < 1 Urine Bacteria None Ur Culture Indicated? Not Indicated Urine Opiates Screen Negative Urine Fentanyl Screen Negative Ur Barbiturates Screen Negative U Amphetamin/Meth Scrn Positive A U Benzodiazepines Scrn Negative U Cocaine Metab Screen Negative U Marijuana (THC) Screen Negative Ethyl Alcohol ABG Interpretation ABG results: 07/20/25 17:10 ABG pH Cancelled ABG pCO2 Cancelled ABG pO2 Cancelled ABG HCO3 Cancelled ABG O2 Saturation Cancelled ABG Base Excess Cancelled Quality Measures Quality Measures none Assessment & Plan Assessment Current Active Medications: Generic Name Dose Route Start Last Admin Trade Name Freq PRN Reason Stop Dose Admin Acetaminophen 650 mg 07/20/25 18:20 07/21/25 04:01 Acetaminophen 325 Mg Tablet PO 08/19/25 18:19 650 mg Q6HR PRN Administration Temp >100 or Pain 1-3 Albuterol/Ipratropium 3 ml 07/20/25 18:20 Albuterol/Ipratropium (Duoneb) Rt Jane 3 Ml Nebu INH 08/19/25 18:19 Q2HR PRN SHORTNESS OF BREATH OR WHEEZE Dextrose 50 ml 07/20/25 18:12 07/21/25 07:10 Dextrose 50%-Water Inj 50 Ml Syringe IV 08/19/25 18:11 50 ml Q15MIN PRN Administration BG <50 OR BG <70 & pt unresponsive Furosemide 40 mg 07/21/25 06:00 07/21/25 05:19 Furosemide Inj 10 Mg/Ml 4ml Vial IVP 08/20/25 05:59 40 mg BIDD ERICH Administration Gabapentin 100 mg 07/21/25 10:00 07/21/25 10:44 Gabapentin 100 Mg Capsule PO 08/20/25 09:59 100 mg QDAY ERICH Administration Glucagon 1 mg 07/20/25 18:12 Glucagon Inj 1 Mg Vial IM Q15MIN PRN BG <70, and no IV access Heparin Sodium (Porcine) 5,000 unit 07/20/25 22:00 07/21/25 05:26 Heparin Sod Inj 5000 Unit/Ml Vial SC 08/03/25 21:59 5,000 unit Q8HR ERICH Administration Insulin Human Lispro 0 unit 07/20/25 21:00 07/21/25 12:48 Insulin Lispro (Admelog) 1 Unit/0.01 Ml Unit SC 08/19/25 20:59 Not Given ACHS [facility] Protocol Metoprolol Succinate 25 mg 07/22/25 09:00 Metoprolol Succinate Xl 25 Mg Tabcr PO 08/21/25 08:59 QDAY [facility] Ondansetron HCl 4 mg 07/20/25 18:20 Ondansetron Inj 2 Mg/Ml Inj 2 Ml IVP 08/19/25 18:19 Q6HR PRN NAUSEA OR VOMITING Protocol Plan Summary: Mr. 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 Cardiology consulted to establish care for heart failure. #Acute decompensated heart failure #Congestive systolic and diastolic heart failure with reduced ejection fraction, EF 25-30% Patient reported for the last 3 days that he has had progressive shortness of breath which has been worsening, endorses difficulty breathing while lying flat and reports waking up in the middle of the night 4-5 times with the feeling that he is drowning. Patient complains of shortness of breath on rest, reports that he has bilateral lower extremity swelling, Bilateral lower extremity edema noted, BNP 1120, chest x-ray shows mild vascular congestion. Echocardiogram 06/04/2025: 1. Left ventricle size is normal and systolic function is severely reduced. Estimated ejection fraction is 25-30%. There is grade III diastolic dysfunction. There is mild concentric hypertrophy noted. 2. Right ventricle chamber size is moderately enlarged and systolic function is mildly reduced. Estimated RVSP moderately elevated is 49 mmHg. 3. Flattening of the ventricular septum in mid to late systole consistent with right ventricular volume overload. 4. There is mild to moderate mitral valve regurgitation. 5. There is moderate tricuspid valve regurgitation. mild pulmonary regurgitation. 6. The left atrium is moderately enlarged. The right atrium is moderately enlarged. 7. There is no and trivial pericardial effusion. No tamponade. Recommendations: ?Diuresis with Lasix 40 mg IV twice daily ?Strict intake and output, daily weight, fluid restriction 1500 cc, low-sodium diet ?Change Coreg to Metoprolol 25mg po qd, consider starting on ARNI as blood pressure permissible for GDMT ?Consider obtaining iron panel in a.m. ?Keep potassium greater than 4 and magnesium greater than 2 at all times #NSTEMI type II versus type I, likely type II demand ischemia Patient denies any chest pain. EKG on presentation shows sinus tachycardia rate 117, right bundle branch block. Troponin 0.440 Patient's underlying troponin elevation in setting of demand ischemia Recommendations: ?Trend troponin until it downtrends ?Obtain TSH, lipid panel, A1c for cardiac restratification ?Monitor for chest pain #Hypertension Continue Coreg, consider starting sacubitril/valsartan if blood pressure permissible due to HFrEF #Hyperlipidemia -Lipid panel shows triglycerides 79, cholesterol 140, LDL 81, HDL 43, hemoglobin A1c 11.7, TSH 1.73, -ASCVD risk score 14.4%: Risk of cardiovascular event in next 10 years. -Prevent risk of cardiovascular disease events, A1c model: 27.55% 10-year total CVD risk, 10-year heart failure risk 19.6, 10-year coronary heart disease risk 7.77 percent, 10-year stroke risk 8.69% Plan -Continue Atorvastatin 40mg po qd. #Uncontrolled insulin-dependent diabetes mellitus, A1c 11.7 #Diabetic neuropathy #History of methamphetamine use #Elevated D-dimer Management as per primary team Thank you for the consult and allowing to participate in the care of the patient. Cardiology will continue to follow. Assessment and plan discussed with my attending physician Dr. Swartz and Dr. Nguyen (PGY-2) Dr. Lopes (PGY-1) - Internal medicine resident Attending Provider Attestation/Addendum I have personally seen and examined the patient separately on the above date of service and discussed the plan of care with the resident. I reviewed the resident Dr. Duran Lopes / Daria Nguyen consultation progress note and agree with the resident findings and plan in the note above and have also edited the documentation to reflect my findings and plan. Ramon Swartz M.D. Interventional Cardiology
--- NOTE | 2025-07-21 12:59 | ESPR_ITS ---
Documentation for date of: 07/21/25 Subjective Subjective Interval history: Patient seen and examined at bedside; no acute events overnight. Work of breathing much better, but edema still similar level. Having significant foot pain bilaterally due to diabetic neuropathy, will restart home gabapentin. Net fluid change -2230 mL. Exam Vital Signs Temp Pulse Resp BP Pulse Ox O2 Del Method O2 Flow Rate 96.5 F L 125 H 19 125/97 H 98 Nasal Cannula 2 07/21/25 12:00 07/21/25 12:00 07/21/25 12:00 07/21/25 12:00 07/21/25 12:00 07/21/25 12:00 07/21/25 12:00 FiO2 2 07/21/25 08:00 Narrative Exam GENERAL: AOx3, no acute distress HEENT: mucous membranes moist, bilateral sclera anicteric CARDIOVASCULAR: regular rate and rhythm, S1/S2 present, no murmurs appreciated PULMONARY: CTA ABDOMINAL: soft, non-tender, non-distended, no rebound/guarding, bowel sounds present EXTREMITIES: trace pitting edema bilaterally, chronic venous stasis dermatitis SKIN: warm and dry, intact, no rashes NEURO: CN II-XII grossly intact, no focal deficits, alert, following commands Objective Labs 07/21/25 05:00 07/21/25 05:00 Labs: Laboratory Results - last 24 hr 07/20/25 07/20/25 07/20/25 15:30 16:30 17:10 WBC 7.4 RBC 4.66 Hgb 14.0 Hct 39.8 L MCV 85 MCH 30.0 MCHC 35.2 RDW Std Deviation 49.7 H Plt Count 270 Neut % (Auto) 65 Lymph % (Auto) 25 [place] % (Auto) 8 Eos % (Auto) 2 Baso % (Auto) 0 Neut # (Auto) 4.8 Lymph # (Auto) 1.8 [place] # (Auto) 0.6 Eos # (Auto) 0.1 Baso # (Auto) 0.0 Immature Gran # (Auto) 0.04 H Absolute Nucleated RBC 0.00 Immature Gran % 1 H Nucleated RBC % 0 ESR 2 Retic Count (auto) Absolute Retic Immature Retic Fraction Retic Hgb Content CHr D-Dimer 933 H Puncture Site Cancelled ABG pH Cancelled ABG pCO2 Cancelled ABG pO2 Cancelled ABG HCO3 Cancelled ABG O2 Saturation Cancelled ABG Base Excess Cancelled Oxygen Liter Flow Cancelled FiO2 Cancelled Sodium 138 Potassium 4.4 Chloride 104 Carbon Dioxide 25.2 Anion Gap 9 BUN 17 Creatinine 1.2 Estim Creat Clear Calc Not Performed. eGFR > 60 BUN/Creatinine Ratio 14 Glucose 499 H* Estimated Ave Glu mg/dL 289 H Hemoglobin A1c 11.7 H Calculated Osmolality 299 H Lactic Acid 1.5 Calcium 8.3 Corrected Calcium 8.9 Phosphorus Magnesium 1.5 L Total Bilirubin 1.0 Direct Bilirubin 0.3 AST 18 ALT 28 Alkaline Phosphatase 159 H Total Creatine Kinase 94 Troponin I 0.440 H* C-Reactive Prot, Quant < 0.5 B-Natriuretic Peptide 1128 H* Total Protein 6.9 Albumin 3.3 L Globulin 3.6 H Albumin/Globulin Ratio 0.9 L Triglycerides Cholesterol LDL Cholesterol, Calc HDL Cholesterol Cholesterol/HDL Ratio Procalcitonin 0.07 TSH 1.73 Ur Collection Type Urine Color Urine Clarity Urine pH Ur Specific [place] Urine Protein Urine Glucose (UA) Urine Ketones Urine Blood Urine Nitrite Urine Bilirubin Urine Urobilinogen (Auto) Ur Leukocyte Esterase Urine RBC Urine WBC Ur Squamous Epith Cells Urine Bacteria Ur Culture Indicated? Urine Opiates Screen Urine Fentanyl Screen Ur Barbiturates Screen U Amphetamin/Meth Scrn U Benzodiazepines Scrn U Cocaine Metab Screen U Marijuana (THC) Screen Ethyl Alcohol < 3.0 07/20/25 07/21/25 07/21/25 21:25 05:00 07:10 WBC 10.7 H D RBC 4.66 Hgb 14.1 Hct 40.0 L MCV 86 MCH 30.3 MCHC 35.3 RDW Std Deviation 49.3 H Plt Count 295 Neut % (Auto) 70 Lymph % (Auto) 20 [place] % (Auto) 8 Eos % (Auto) 2 Baso % (Auto) 1 Neut # (Auto) 7.5 Lymph # (Auto) 2.2 [place] # (Auto) 0.8 Eos # (Auto) 0.2 Baso # (Auto) 0.1 Immature Gran # (Auto) 0.06 H Absolute Nucleated RBC 0.02 H Immature Gran % 1 H Nucleated RBC % 0 ESR Retic Count (auto) 1.4 Absolute Retic 64.8 Immature Retic Fraction 28.2 H Retic Hgb Content CHr 27.7 L D-Dimer Puncture Site ABG pH ABG pCO2 ABG pO2 ABG HCO3 ABG O2 Saturation ABG Base Excess Oxygen Liter Flow FiO2 Sodium 145 Potassium 4.0 Chloride 107 Carbon Dioxide 27.5 Anion Gap 11 BUN 22 Creatinine 1.2 Estim Creat Clear Calc 75.3 eGFR > 60 BUN/Creatinine Ratio [address] Glu mg/dL Hemoglobin A1c Calculated Osmolality 291 Lactic Acid Calcium 8.7 Corrected Calcium 9.1 Phosphorus 5.1 Magnesium 2.0 Total Bilirubin 1.0 Direct Bilirubin AST 26 ALT 31 Alkaline Phosphatase 136 H D Total Creatine Kinase Troponin I 0.444 H* C-Reactive Prot, Quant B-Natriuretic Peptide Total Protein 7.1 Albumin 3.5 Globulin 3.6 H Albumin/Globulin Ratio 1.0 L Triglycerides 79 Cholesterol 140 LDL Cholesterol, Calc 81 HDL Cholesterol 43 Cholesterol/HDL Ratio 3.3 L Procalcitonin TSH Ur Collection Type Clean Catch Urine Color Lt-Yellow Urine Clarity Clear Urine pH 6.0 Ur Specific [place] 1.009 Urine Protein 1+ A Urine Glucose (UA) Negative Urine Ketones Negative Urine Blood Trace Urine Nitrite Negative Urine Bilirubin Negative Urine Urobilinogen (Auto) Negative Ur Leukocyte Esterase Negative Urine RBC 1 Urine WBC < 1 Ur Squamous Epith Cells < 1 Urine Bacteria None Ur Culture Indicated? Not Indicated Urine Opiates Screen Negative Urine Fentanyl Screen Negative Ur Barbiturates Screen Negative U Amphetamin/Meth Scrn Positive A U Benzodiazepines Scrn Negative U Cocaine Metab Screen Negative U Marijuana (THC) Screen Negative Ethyl Alcohol ABG Interpretation ABG results: 07/20/25 17:10 ABG pH Cancelled ABG pCO2 Cancelled ABG pO2 Cancelled ABG HCO3 Cancelled ABG O2 Saturation Cancelled ABG Base Excess Cancelled Quality Measures Quality Measures none Assessment & Plan Assessment Current Active Medications: Generic Name Dose Route Start Last Admin Trade Name Freq PRN Reason Stop Dose Admin Acetaminophen 650 mg 07/20/25 18:20 07/21/25 04:01 Acetaminophen 325 Mg Tablet PO 08/19/25 18:19 650 mg Q6HR PRN Administration Temp >100 or Pain 1-3 Albuterol/Ipratropium 3 ml 07/20/25 18:20 Albuterol/Ipratropium (Duoneb) Rt Jane 3 Ml Nebu INH 08/19/25 18:19 Q2HR PRN SHORTNESS OF BREATH OR WHEEZE Dextrose 50 ml 07/20/25 18:12 07/21/25 07:10 Dextrose 50%-Water Inj 50 Ml Syringe IV 08/19/25 18:11 50 ml Q15MIN PRN Administration BG <50 OR BG <70 & pt unresponsive Furosemide 40 mg 07/21/25 06:00 07/21/25 05:19 Furosemide Inj 10 Mg/Ml 4ml Vial IVP 08/20/25 05:59 40 mg BIDD ERICH Administration Gabapentin 100 mg 07/21/25 10:00 07/21/25 10:44 Gabapentin 100 Mg Capsule PO 08/20/25 09:59 100 mg QDAY ERICH Administration Glucagon 1 mg 07/20/25 18:12 Glucagon Inj 1 Mg Vial IM Q15MIN PRN BG <70, and no IV access Heparin Sodium (Porcine) 5,000 unit 07/20/25 22:00 07/21/25 05:26 Heparin Sod Inj 5000 Unit/Ml Vial SC 08/03/25 21:59 5,000 unit Q8HR ERICH Administration Insulin Human Lispro 0 unit 07/20/25 21:00 07/21/25 12:48 Insulin Lispro (Admelog) 1 Unit/0.01 Ml Unit SC 08/19/25 20:59 Not Given ACHS [facility] Protocol Metoprolol Succinate 25 mg 07/22/25 09:00 Metoprolol Succinate Xl 25 Mg Tabcr PO 08/21/25 08:59 QDAY ERICH Ondansetron HCl 4 mg 07/20/25 18:20 Ondansetron Inj 2 Mg/Ml Inj 2 Ml IVP 08/19/25 18:19 Q6HR PRN NAUSEA OR VOMITING Protocol Plan Isra Ramirez 50M pmhx significant for IDDM2 with neuropathy, HTN, HFrEF (25- 30%), hx of methamphetamine use, hx of valley fever who presents with orthopnea and PND. #Acute hypoxic respiratory failure 2/2 #Acute on chronic HFrEF (25-30%), NYHA IV, stage D Presented with 3 days of orthopnea and PND, denies dyspnea on exertion and has inconsistent leg swelling (L vs R and sometimes toes vs legs). On admission satuaring 98% on 4L NC, BNP 1128. CXR: mild heart failure. Endorses ran out of Entresto and carvedilol from prior admission as he has not seen a director food safety since. Plan: - IV lasix 40 mg BID, goal net neg 2-3L over 24h - Strict I&Os, daily weights, 1.5L fluid restriction - Switch carvedilol to metoprolol succinate 25 daily and hold entresto to keep room for diuresis (metoprolol tartrate caused reflux) - Keep K>4 and Mg>2 at all times - F/u anemia workup and and lipid panel - Cardiology consulted, thank you for recs; echo ordered #Hyperglycemia #IDDM2 #Diabetic neuropathy On admission glucose 499 with bicarb 25. Reports being adherent to 48u of Tresiba and metformin. s/p insulin degludac 25u and regular 10u in ED Plan: - Insulin degludac 25u in ED as patient already took morning dose, will follow PM glucose to start degludac tomorrow morning - SSI step 3 - Gabapentin 100 qday for neuropathy #NSTEMI, likely type II On admission troponin 0.44 likely demand ischemia iso volume overload. last troponin 0.45. Plan: - Trend troponin until downtrend #Hx of methamphetamine use Admits last use 06/2025 on previous admission, smoked. Plan: - F/u UDS - Counseled extensively regarding cessation #Elevated d-dimer On admission Ddimer 933. BLE US neg for DVT but limited study. Wells score 1.5, low risk. Plan: - Will defer CTA chest due to low Wells score. Hospital management: Lines: PIV Diet: carb consistent low, 1.5L fluid restric Bowel: none GI prophylaxis: not indicated DVT prophylaxis: Disposition: tele, CHF exacerbation IV diuresis CODE STATUS: FULL CODE Plan of care discussed with attending Dr. Mccrary, and senior Dr. Wilkinson. Ruben Kowalski, PGY1 Senior Resident Attestation: The patient was negative by 2.2 L in 24 hours, discontinued Coreg and started on metoprolol succinate 25 mg daily to create a room for Entresto, will continue to diurese the patient. Will continue to trend the troponin until delta is achieved. As he was hypoglycemic this morning, we discontinued insulin degludec, and we will keep him only on sliding scale insulin step 3. TTE results pending. I discussed with and supervised the transportation logistics internship physician involved in the care of this patient. I personally saw and examined the patient and discussed the assessment and plan with the entire medicine team, including my attending. I agree with the assessment and plan as documented above. Osiel Wilkinson MD PGY3 Internal Medicine Attending Provider Attestation/Addendum I have seen and examined the patient. I was physically present for the william portions of the services provided including history, physical exam, diagnosis, treatment plans and orders. I agree with assessment and plan of care as documented by residents. Even though this this note was carefully revised there may still be minor errors in spray drier due to voice recognition software. Jessica Mccrary MD
--- NOTE | 2025-07-21 13:26 | ECHO_ITS ---
Patient Info Name: Isra Ramirez Age: 50 years : 1975 Gender: Male Ht: 175 cm Wt: 78 kg BSA: 1.95 m2 BP: 125 / 97 mmHg Exam Date: 07/21/2025 2:10 PM Admit Date: 07/20/2025 Site: [facility] Patient Status: I Exam Type: CA echo doppler complete Auto Design Detailer: Antonia Noonan Ordering Physician: Daria Nguyen Study Info Indications HFreF - Primary Location: S2NX Left Ventricular Outflow Tract Name Value Normal LVOT Doppler LVOT Peak Velocity 69 cm/s LVOT Mean Gradient 1 mmHg LVOT VTI 11 cm LVOT VTI/AV VTI Ratio 0.8 Pulmonic Valve Name Value Normal PV Doppler PV Peak Velocity 103 cm/s PV Regurgitation Doppler ME Peak End Diastolic Velocity 168 cm/s Mitral Valve Name Value Normal MV Regurgitation Doppler MV EROA (PISA) 0.19 cm2 MR Volume (PISA) 26 ml Tricuspid Valve Name Value Normal TV Regurgitation Doppler TR Peak Velocity 341 cm/s Estimated PAP/RSVP RA Pressure 3 mmHg <=5 PA Systolic Pressure 50 mmHg <36 RV Systolic Pressure 50 mmHg <36 Aortic Valve Name Value Normal AV Doppler AV Peak Velocity 109 cm/s AV Mean Gradient 3 mmHg AV VTI 14 cm AV DI (Kevin) 0.63 Ventricles Name Value Normal LV Dimensions 2D/MM IVS Diastolic Thickness (2D) 1.2 cm 0.6-1.0 LVID Diastole (2D) 4.7 cm 4.2-5.8 LVIW Diastolic Thickness (2D) 1.4 cm 0.6-1.0 LVID Systole (2D) 4.4 cm 2.5-4.0 LV Mass (2D Cubed) 237.88 g 88.00-224.00 LV Mass Index (2D Cubed) 122 g/m2 49-115 Relative Wall Thickness (2D) 0.60 <=0.42 IVS/LVIW Diastolic Thickness (2D) 0.86 0.00-1.50 LV Fractional Shortening/Ejection Fraction 2D/MM LV Fractional Shortening (2D) 6 % 25-43 LV EF (2D Teichholz) 14 % LV Diastolic Volume (4C MOD) 135 ml LV EF (4C MOD) -10 % LV Diastolic Volume (2C MOD) 126 ml LV Diastolic Volume (BP MOD) 134 ml 62-150 LV Diastolic Volume Index (BP MOD) 69 ml/m2 34-74 LV Diastolic Length (4C) 7.8 cm LV Systolic Length (4C) 8.7 cm LV Stroke Volume (4C MOD) -13 ml Atria Name Value Normal LA Dimensions LA Volume (4C A-L) 73 ml LA Volume (BP A-L) 71 ml Left Ventricle Left ventricular chamber dimension is normal. Left ventricular systolic function is severely reduced with visually estimated ejection fraction of 20-25%. There is mild concentric hypertrophy noted in the left ventricle. Left ventricular segmental wall motion is normal. There is grade III diastolic dysfunction in the left ventricle. Right Ventricle Right ventricular chamber dimension is moderately enlarged. Right ventricular systolic function is reduced. Flattening of the ventricular septum in mid to late systole consistent with right ventricular pressure and volume overload. Left Atrium Left atrial chamber dimension is moderately enlarged. Right Atrium Right atrial chamber dimension is mildly enlarged. Aortic Valve The aortic valve is trileaflet. There is no aortic valve sclerosis. There is no aortic valve stenosis. There is no aortic valve regurgitation. Pulmonic Valve The pulmonic valve is normal. There is no pulmonic valve stenosis. There is mild pulmonic regurgitation. Mitral Valve The mitral valve has normal leaflets. There is no mitral valve stenosis. There is mild to moderate mitral valve regurgitation. Tricuspid Valve The tricuspid valve leaflets are normal. There is no tricuspid valve stenosis. There is mild to moderate tricuspid valve regurgitation. Pulmonary hypertension, estimated pulmonary arterial systolic pressure is 50 mmHg and systemic blood pressure of 125 mmHg in systole. Pericardium/Pleural There is small pericardial effusion with no tamponade. No pleural effusion visualized. Inferior Vena Cava Normal inferior vena cava with >50% collapse upon inspiration consistent with normal right atrial pressure, 3 mmHg. Aorta The aortic measurements are indexed to age and body surface area. The aortic root at the sinus of Valsalva is not well visualized. The prox ascending aorta is not well visualized. Summary 1. Left ventricle size is normal and systolic function is severely reduced. Estimated ejection fraction is 20-25%. There is grade III diastolic dysfunction. There is mild concentric hypertrophy noted. 2. Right ventricle chamber size is moderately enlarged and systolic function is reduced. Estimated RVSP is 50 mmHg with RAP 3. Estimated RVSP moderately elevated. 3. Flattening of the ventricular septum in mid to late systole consistent with right ventricular pressure and volume overload. 4. There is mild to moderate mitral, tricuspid and pulmonic valve regurgitation. 5. The left atrium is moderately enlarged. The right atrium is mildly enlarged. 6. There is small pericardial effusion with no tamponade. Prior Cardiovascular Procedures Transthoracic Echocardiogram: Yes Date of Previous TTE: 06/2025 Report Signatures Finalized by Ramon Swartz on 07/21/2025 08:06 PM
--- NOTE | 2025-07-21 13:48 | PC.SS ---
Isra Ramirez is a 50 year-old male admitted to [facility] for CHF Exacerbation. SS conducted bedside contact with the patient to complete initial assessment and to discuss discharge planning. Role and reason explained. Patient confirmed demographic information. Patient identifies his Life partner, Felecia Claudio [phone] as his surrogate decision maker. Pt states he is able to complete all ADL?s independently. Pt does utilizes a walker and has a wheelchair. Pts PCP is [facility]. Pharmacy of choice is [facility]. Discharge options discussed and the pt wishes to return home.? Pt LP will provide transport. No further intervention required at this time, social services specialist would be available to address any further concerns. DC Plan: Home Contact: Felecia DUMONT Address: Confirmed on face sheet PCP: [facility]
[2025-07-21 14:58] LABS: Ferritin 315 ng/mL (10.5-307.3); Iron 44 mcg/dL (65-175); Percent Iron Saturation 17 % (20-55); Total Iron Binding Capacity 249 mcg/dL (250-425); Unsaturated Iron Binding 205 (225-295)
[2025-07-21 15:55] LABS: Troponin I 0.450 ng/mL (0.0-0.045)
--- NOTE | 2025-07-21 16:03 | PC.SS ---
Rounding: on O2, IV diuretics
[2025-07-21] MEDS: INSULIN LISPRO (AdmeLOG) 1 UNIT/0.01 ML UNIT SC ×2 (16:46→21:01)
[2025-07-21 17:39] LABS: Troponin I 0.410 ng/mL (0.0-0.045)
[2025-07-21] MEDS: IRON SUCROSE CPLX INJ 20 MG/ML VIAL 5 ML 200 MG IVP (18:47)
[2025-07-21 20:42] LABS: Folate 14.96 ng/mL (>5.38); Vitamin B12 745 pg/mL (211-911)
[2025-07-21] MEDS: ATORVASTATIN CALCIUM 20 MG TABLET 40 MG PO (21:01)
--- NOTE | 2025-07-21 21:11 | PC.NURSE ---
Called MD Hodge regarding pt complaining of leg pain, I offered Tylenol but pts asking for a stronger pain meds, per he cant order any stronger pain meds will admin Tylenol as ordered.
[2025-07-21 23:37] LABS: Troponin I 0.355 ng/mL (0.0-0.045)
[2025-07-22] VITALS (12 sets, daily range): BP systolic 115–145; BP diastolic 86–108; PULSE 100–118; RESP 15–28; TEMP 35.9–36.7; O2SAT 92–99; BMI 25.4
[2025-07-22 01:45] LABS: Influenza A Ag Negative; Influenza B Ag Negative
[2025-07-22] MEDS: HEPARIN SOD INJ 5000 UNIT/ML VIAL SC ×3 (05:20→21:25)
[2025-07-22] MEDS: FUROSEMIDE INJ 10 MG/ML 4ML VIAL 40 MG IVP ×3 (05:20→17:03)
[2025-07-22 06:29] LABS: Basophils # (Auto) 0.1 Thou/mm3 (0.0-0.2); Basophils % (Auto) 1 % (0-2.5); Eosinophils # (Auto) 0.2 Thou/mm3 (0.0-0.5); Eosinophils % (Auto) 3 % (0-10); Hematocrit 36.4 % (41.0-53.0); Hemoglobin 12.8 g/dL (13.5-16.0); Immature Granulocytes Auto 0.06 Thou/mm3 (0.00-0.00); Lymphocytes # (Auto) 1.4 Thou/mm3 (1.0-4.8); Lymphocytes % (Auto) 17 % (10-50); Mean Corpuscular HGB Conc 35.2 g/dl (31.0-37.0); Mean Corpuscular Hemoglobin 30.3 pg (25.0-35.0); Mean Corpuscular Volume 86 fL (80-100); Monocytes # (Auto) 0.8 Thou/mm3 (0.0-0.8); Monocytes % (Auto) 9 % (0-12); Neutrophils # (Auto) 6.0 Thou/mm3 (1.8-7.7); Neutrophils % (Auto) 70 % (37-80); Nucleated Red Blood Cell # 0.00 Thou/mm3 (0.00-0.00); Nucleated Red Blood Cell % 0 /100 WBC (0); Platelet Count 246 Thou/mm3 (140-440); RDW Standard Deviation 49.9 fL (35.1-43.9); Red Blood Count 4.23 Miln/mm3 (4.50-5.90); White Blood Count 8.5 Thou/mm3 (3.8-10.6)
[2025-07-22 06:41] LABS: Alanine Aminotransferase 26 U/L (10-49); Albumin, Serum 2.9 gm/dL (3.5-5.0); Albumin/Globulin Ratio 0.8 (1.2-2.2); Alkaline Phosphatase 158 U/L (46-116); Anion Gap 11 (7-16); Aspartate Amino Transferase 20 U/L (0-34); BUN/Creatinine Ratio 20 Ratio (12-20); Bilirubin,Total 1.2 mg/dL (0.3-1.2); Blood Urea Nitrogen 24 mg/dL (9-23); Calcium 8.3 mg/dL (8.3-10.6); Calcium (Corrected) 9.2 mg/dL (8.5-10.1); Carbon Dioxide 26.5 mMol/L (20.0-31.0); Chloride 105 mMol/L (98-107); Creatinine (Component) 1.2 mg/dL (0.6-1.3); Estimated Creatinine Clearance 75.3 mL/min (>60); Globulin 3.6 gm/dL (2.3-3.5); Glucose 291 mg/dL (74-106); Magnesium 1.7 mg/dL (1.6-2.6); Osmolality,Calculated 298 (275-295); Phosphorous 5.1 mg/dL (2.4-5.1); Potassium 3.9 mMol/L (3.4-5.1); Sodium 142 mMol/L (136-145); Total Protein 6.5 gm/dL (5.7-8.2); eGFR > 60 See Note
[2025-07-22] MEDS: INSULIN LISPRO (AdmeLOG) 1 UNIT/0.01 ML UNIT SC ×4 (07:42→21:24)
[2025-07-22] MEDS: GABAPENTIN 100 MG CAPSULE PO (08:22)
[2025-07-22] MEDS: MAGNESIUM OXIDE 400 MG TABLET PO (08:22)
[2025-07-22] MEDS: METOPROLOL SUCCINATE XL 25 MG TABCR PO (08:22)
[2025-07-22] MEDS: INSULIN DEGLUDEC 5 UNIT/0.05 ML (PER 5 UNITS) 15 UNIT SC (08:23)
[2025-07-22] MEDS: ALBUTEROL/IPRATROPIUM (Duoneb) RT SOL 3 ML NEBU INH (08:59)
--- NOTE | 2025-07-22 09:52 | PD.RESPRO ---
Documentation for date of: 07/22/25 Subjective Subjective Interval history: Mr. 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 Patient reported for the last 3 days that he has had progressive shortness of breath which has been worsening, endorses difficulty breathing while lying flat and reports waking up in the middle of the night 4-5 times with the feeling that he is drowning. Patient complains of shortness of breath on rest, reports that he has bilateral lower extremity swelling, reported that he has recently ran out of his medication and was unable to see a custom home installer outpatient. Patient otherwise denies any chest pain, palpitations, syncope, dizziness, fevers, chills, headache, nausea, vomiting and recent sick contacts. Of note patient was recently discharged in June 2025 for right lower extremity cellulitis. ED course: On presentation patient's blood pressure 157/123, heart rate 114, respiratory rate 20, temp 98.0, O2 sat 98 on room air. ED labs pertinent for WBC 7.4, hemoglobin 14.0, platelet count 270, D-dimer 933, potassium 4.4, sodium 138, chloride 104, anion gap 9, BUN 17, creatinine 1.2, GFR greater than 60, glucose 499, A1c 11.7, osmolality 299, lactate 1.5, calcium 8.9, magnesium 1.5, AST 18, ALT 28, alk phos 159, CK 94, troponin. 0.440, BNP 1128, albumin 3.3, Pro-Trace negative, TSH 1.73, blood alcohol level negative. Chest x-ray on presentation shows mild vascular congestion, EKG on presentation shows sinus tachycardia, rate 117, right bundle branch block. Bilateral venous Doppler negative for DVT. Cardiology consulted for acute decompensated heart failure in setting of chronic systolic and diastolic heart failure. 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 -Alcohol Use: Occasionally drinks alcohol -Illicit Drug Use: Last methamphetamine use June 2025 -Martial Status: lives with and son Family History: History of congestive heart failure in mother. 07/20/2025: Diuresis with Lasix 40 mg IV twice daily, Home dose Coreg 6.25 mg p.o. twice daily resumed, consider starting on ARNI as blood pressure permissible for GDMT, Trend troponin until it downtrends 07/21/2025: No Overnight events. Labs reviewed and patient examined at the bedside. Continue IV Lasix 40mg bid. Recommend changing Coreg to Metoprolol 25mg po qd. Start patient on Sacubitril-Valsartan when BP is permissible. Continue to trend troponin. Mg 2.0, K:4.0, Cr: 1.2, UoP:2.4L. Denies chest pain, palpation, abdominal pain, N/V, fevers or chills. 07/22/2025: No Overnight events. Labs reviewed and patient examined at the bedside. Continue IV lasix 40mg bid. This morning, patient's BP was 145/106 with CA of 113. Started on Entresto 24-26 po bid. His current BP is 124/96 with HR of 106. Recommend increasing Metoprolol from 25mg to 50mg po qd. Troponin trended down from 0.410 to 0.355. M.7, K: 3.9, UoP: 1.8L. Denies chest pain, palpation, SOB, abdominal pain, N/V, fevers or chills. Exam Vital Signs Temp Pulse Resp BP Pulse Ox O2 Del Method O2 Flow Rate 97.2 F 109 H 17 137/108 H 99 Room Air 1 07/22/25 08:00 07/22/25 09:00 07/22/25 09:00 07/22/25 08:22 07/22/25 09:00 07/22/25 08:00 07/22/25 09:00 FiO2 2 07/21/25 08:00 Narrative Exam GENERAL: AOx3, no acute distress, on NC 2L HEENT: mucous membranes moist, bilateral sclera anicteric CARDIOVASCULAR: regular rate and rhythm, S1/S2 present, no murmurs appreciated PULMONARY: crackles at bilateral bases ABDOMINAL: soft, non-tender, non-distended, no rebound/guarding, bowel sounds present EXTREMITIES: 1+ pitting edema bilaterally, chronic venous stasis dermatitis SKIN: warm and dry, intact, no rashes NEURO: CN II-XII grossly intact, no focal deficits, alert, following commands Objective Labs 07/23/25 04:38 07/23/25 04:38 Labs: Laboratory Results - last 24 hr 07/21/25 07/21/25 07/21/25 05:00 07:10 16:55 WBC RBC Hgb Hct MCV MCH MCHC RDW Std Deviation Plt Count Neut % (Auto) Lymph % (Auto) [place] % (Auto) Eos % (Auto) Baso % (Auto) Neut # (Auto) Lymph # (Auto) [place] # (Auto) Eos # (Auto) Baso # (Auto) Immature Gran # (Auto) Absolute Nucleated RBC Immature Gran % Nucleated RBC % Sodium Potassium Chloride Carbon Dioxide Anion Gap BUN Creatinine Estim Creat Clear Calc eGFR BUN/Creatinine Ratio Glucose Calculated Osmolality Calcium Corrected Calcium Phosphorus Magnesium Iron 44 L TIBC 249 L Iron Saturation 17 L Unsat Iron Binding 205 L Ferritin 315 H Total Bilirubin AST ALT Alkaline Phosphatase Troponin I 0.450 H* 0.410 H* Total Protein Albumin Globulin Albumin/Globulin Ratio Vitamin B12 745 Folate 14.96 Urine Opiates Screen Negative Urine Fentanyl Screen Negative Ur Barbiturates Screen Negative U Amphetamin/Meth Scrn Positive A U Benzodiazepines Scrn Negative U Cocaine Metab Screen Negative U Marijuana (THC) Screen Negative Influenza A (Rapid) Influenza B (Rapid) 07/21/25 07/22/25 07/22/25 22:25 00:16 04:38 WBC 8.5 RBC 4.23 L Hgb 12.8 L Hct 36.4 L MCV 86 MCH 30.3 MCHC 35.2 RDW Std Deviation 49.9 H Plt Count 246 D Neut % (Auto) 70 Lymph % (Auto) 17 [place] % (Auto) 9 Eos % (Auto) 3 Baso % (Auto) 1 Neut # (Auto) 6.0 Lymph # (Auto) 1.4 [place] # (Auto) 0.8 Eos # (Auto) 0.2 Baso # (Auto) 0.1 Immature Gran # (Auto) 0.06 H Absolute Nucleated RBC 0.00 Immature Gran % 1 H Nucleated RBC % 0 Sodium 142 Potassium 3.9 Chloride 105 Carbon Dioxide 26.5 Anion Gap 11 BUN 24 H Creatinine 1.2 Estim Creat Clear Calc 75.3 eGFR > 60 BUN/Creatinine Ratio 20 Glucose 291 H D Calculated Osmolality 298 H Calcium 8.3 Corrected Calcium 9.2 Phosphorus 5.1 Magnesium 1.7 Iron TIBC Iron Saturation Unsat Iron Binding Ferritin Total Bilirubin 1.2 AST 20 ALT 26 Alkaline Phosphatase 158 H D Troponin I 0.355 H* Total Protein 6.5 Albumin 2.9 L D Globulin 3.6 H Albumin/Globulin Ratio 0.8 L Vitamin B12 Folate Urine Opiates Screen Urine Fentanyl Screen Ur Barbiturates Screen U Amphetamin/Meth Scrn U Benzodiazepines Scrn U Cocaine Metab Screen U Marijuana (THC) Screen Influenza A (Rapid) Negative Influenza B (Rapid) Negative ABG Interpretation ABG results: 07/20/25 17:10 ABG pH Cancelled ABG pCO2 Cancelled ABG pO2 Cancelled ABG HCO3 Cancelled ABG O2 Saturation Cancelled ABG Base Excess Cancelled Quality Measures Quality Measures none Assessment & Plan Assessment Current Active Medications: Generic Name Dose Route Start Last Admin Trade Name Freq PRN Reason Stop Dose Admin Acetaminophen 650 mg 07/20/25 18:20 07/21/25 04:01 Acetaminophen 325 Mg Tablet PO 08/19/25 18:19 650 mg Q6HR PRN Administration Temp >100 or Pain 1-3 Albuterol/Ipratropium 3 ml 07/20/25 18:20 07/22/25 08:59 Albuterol/Ipratropium (Duoneb) Rt Jane 3 Ml Nebu INH 08/19/25 18:19 3 ml Q2HR PRN Administration SHORTNESS OF BREATH OR WHEEZE Atorvastatin Calcium 40 mg 07/21/25 21:00 07/21/25 21:01 Atorvastatin Calcium 20 Mg Tablet PO 08/20/25 20:59 40 mg HS ERICH Administration Dextrose 50 ml 07/20/25 18:12 07/21/25 07:10 Dextrose 50%-Water Inj 50 Ml Syringe IV 08/19/25 18:11 50 ml Q15MIN PRN Administration BG <50 OR BG <70 & pt unresponsive Furosemide 40 mg 07/21/25 06:00 07/22/25 05:20 Furosemide Inj 10 Mg/Ml 4ml Vial IVP 08/20/25 05:59 40 mg BIDD ERICH Administration Gabapentin 100 mg 07/21/25 10:00 07/22/25 08:22 Gabapentin 100 Mg Capsule PO 08/20/25 09:59 100 mg QDAY ERICH Administration Glucagon 1 mg 07/20/25 18:12 Glucagon Inj 1 Mg Vial IM Q15MIN PRN BG <70, and no IV access Heparin Sodium (Porcine) 5,000 unit 07/20/25 22:00 07/22/25 05:20 Heparin Sod Inj 5000 Unit/Ml Vial SC 08/03/25 21:59 5,000 unit Q8HR ERICH Administration Insulin Degludec 15 unit 07/22/25 08:00 07/22/25 08:23 Insulin Degludec 5 Unit/0.05 Ml (Per 5 Units) SC 08/21/25 07:59 15 unit QDAY ERICH Administration Insulin Human Lispro 0 unit 07/20/25 21:00 07/22/25 07:42 Insulin Lispro (Admelog) 1 Unit/0.01 Ml Unit SC 08/19/25 20:59 5 unit ACHS ERICH Administration Protocol Metoprolol Succinate 25 mg 07/22/25 09:00 07/22/25 08:22 Metoprolol Succinate Xl 25 Mg Tabcr PO 08/21/25 08:59 25 mg QDAY ERICH Administration Ondansetron HCl 4 mg 07/20/25 18:20 Ondansetron Inj 2 Mg/Ml Inj 2 Ml IVP 08/19/25 18:19 Q6HR PRN NAUSEA OR VOMITING Protocol Sacubitril/Valsartan 1 tab 07/22/25 09:00 Sacubitril 24 Mg/Valsartan 26 Mg Tablet PO 08/21/25 08:59 BID ERICH Plan Summary: Mr. 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 Cardiology consulted to establish care for heart failure. #Acute decompensated heart failure #Congestive systolic and diastolic heart failure with reduced ejection fraction, EF 25-30% Patient reported for the last 3 days that he has had progressive shortness of breath which has been worsening, endorses difficulty breathing while lying flat and reports waking up in the middle of the night 4-5 times with the feeling that he is drowning. Patient complains of shortness of breath on rest, reports that he has bilateral lower extremity swelling, Bilateral lower extremity edema noted, BNP 1120, chest x-ray shows mild vascular congestion. Echocardiogram 06/04/2025: 1. Left ventricle size is normal and systolic function is severely reduced. Estimated ejection fraction is 25-30%. There is grade III diastolic dysfunction. There is mild concentric hypertrophy noted. 2. Right ventricle chamber size is moderately enlarged and systolic function is mildly reduced. Estimated RVSP moderately elevated is 49 mmHg. 3. Flattening of the ventricular septum in mid to late systole consistent with right ventricular volume overload. 4. There is mild to moderate mitral valve regurgitation. 5. There is moderate tricuspid valve regurgitation. mild pulmonary regurgitation. 6. The left atrium is moderately enlarged. The right atrium is moderately enlarged. 7. There is no and trivial pericardial effusion. No tamponade. Recommendations: -Diuresis with Lasix 40 mg IV twice daily -Strict intake and output, daily weight, fluid restriction 1500 cc, low-sodium diet -Consider increaing Metoprolol to 50mg po qd from 25mg, -Continue Entresto as blood pressure permissible for GDMT -Consider obtaining iron panel in a.m. -Keep potassium greater than 4 and magnesium greater than 2 at all times #NSTEMI type II versus type I, likely type II demand ischemia-Resolved Patient denies any chest pain. EKG on presentation shows sinus tachycardia rate 117, right bundle branch block. Troponin 0.440--> 0.355 Patient's underlying troponin elevation in setting of demand ischemia Recommendations: ?Monitor for chest pain #Hypertension -On metoprolol 25mg po qd. Consider increasing it to 50mg po qd -Continue on with entresto 24-26 po bid #Hyperlipidemia -Lipid panel shows triglycerides 79, cholesterol 140, LDL 81, HDL 43, hemoglobin A1c 11.7, TSH 1.73, -ASCVD risk score 14.4%: Risk of cardiovascular event in next 10 years. -Prevent risk of cardiovascular disease events, A1c model: 27.55% 10-year total CVD risk, 10-year heart failure risk 19.6, 10-year coronary heart disease risk 7.77 percent, 10-year stroke risk 8.69% Plan -Continue Atorvastatin 40mg po qd. #Uncontrolled insulin-dependent diabetes mellitus, A1c 11.7 #Diabetic neuropathy #History of methamphetamine use Counseled extensively regarding the need to completely stop the methamphetamine use and to follow regularly with the primary care clinic and and follow-up with his custom home installer for further evaluation of ischemic versus nonischemic cardiomyopathy as outpatient. If nonischemic cardiomyopathy diagnosed and does not improve with goal-directed medical therapy and patient will need ICD for prevention of sudden cardiac . Patient explained importance of following up regularly with doctors given his severe systolic congestive heart failure in the setting of methamphetamine abuse. #Elevated D-dimer Management as per primary team Thank you for the consult and allowing to participate in the care of the patient. Cardiology will continue to follow. Assessment and plan discussed with my attending physician Dr. Sheridan Lpoes (PGY-1) - Internal medicine resident Attending Provider Attestation/Addendum I have personally seen and examined the patient separately on the above date of service and discussed the plan of care with the resident. I reviewed the resident Dr. Duran Lopes consultation progress note and agree with the resident findings and plan in the note above and have also edited the documentation to reflect my findings and plan. Ramon Swartz M.D. Interventional Cardiology
--- NOTE | 2025-07-22 10:15 | PC.SS ---
Follow up note: Cardio recommendations pending. Pt is on new medications. Pt will return home upon dc.
--- NOTE | 2025-07-22 13:11 | PD.RESPRO ---
Documentation for date of: 07/22/25 Subjective Subjective Interval history: Patient seen and examined at bedside; no acute events overnight. Chest x-ray showed heart failure pattern, and echo showed Ef of 20-25%, previous was 25-30%. Blood cultures negative at 24 hours. In room, patient admitted recent methamphetamine use, and was extensively counseled on cessation as it would continue to impact his health. Minimal change in leg swelling; 1040 net output. Entresto started due to continously high BP. Exam Vital Signs Temp Pulse Resp BP Pulse Ox O2 Del Method O2 Flow Rate 97.2 F 106 H 17 140/101 H 99 Room Air 1 07/22/25 08:00 07/22/25 10:17 07/22/25 09:00 07/22/25 10:17 07/22/25 09:00 07/22/25 08:00 07/22/25 09:00 FiO2 2 07/21/25 08:00 Narrative Exam GENERAL: AOx3, no acute distress HEENT: mucous membranes moist, bilateral sclera, anicteric CARDIOVASCULAR: regular rate and rhythm, S1/S2 present, no murmurs appreciated PULMONARY: CTA ABDOMINAL: soft, non-tender, non-distended, no rebound/guarding, bowel sounds present EXTREMITIES: significant pitting edema bilaterally, chronic venous stasis dermatitis SKIN: warm and dry, intact, no rashes NEURO: CN II-XII grossly intact, no focal deficits, alert, following commands Objective Labs 07/22/25 04:38 07/22/25 04:38 Labs: Laboratory Results - last 24 hr 07/21/25 07/21/25 07/21/25 05:00 16:55 22:25 WBC RBC Hgb Hct MCV MCH MCHC RDW Std Deviation Plt Count Neut % (Auto) Lymph % (Auto) [place] % (Auto) Eos % (Auto) Baso % (Auto) Neut # (Auto) Lymph # (Auto) [place] # (Auto) Eos # (Auto) Baso # (Auto) Immature Gran # (Auto) Absolute Nucleated RBC Immature Gran % Nucleated RBC % Sodium Potassium Chloride Carbon Dioxide Anion Gap BUN Creatinine Estim Creat Clear Calc eGFR BUN/Creatinine Ratio Glucose Calculated Osmolality Calcium Corrected Calcium Phosphorus Magnesium Iron 44 L TIBC 249 L Iron Saturation 17 L Unsat Iron Binding 205 L Ferritin 315 H Total Bilirubin AST ALT Alkaline Phosphatase Troponin I 0.450 H* 0.410 H* 0.355 H* Total Protein Albumin Globulin Albumin/Globulin Ratio Vitamin B12 745 Folate 14.96 Influenza A (Rapid) Influenza B (Rapid) 07/22/25 07/22/25 00:16 04:38 WBC 8.5 RBC 4.23 L Hgb 12.8 L Hct 36.4 L MCV 86 MCH 30.3 MCHC 35.2 RDW Std Deviation 49.9 H Plt Count 246 D Neut % (Auto) 70 Lymph % (Auto) 17 [place] % (Auto) 9 Eos % (Auto) 3 Baso % (Auto) 1 Neut # (Auto) 6.0 Lymph # (Auto) 1.4 [place] # (Auto) 0.8 Eos # (Auto) 0.2 Baso # (Auto) 0.1 Immature Gran # (Auto) 0.06 H Absolute Nucleated RBC 0.00 Immature Gran % 1 H Nucleated RBC % 0 Sodium 142 Potassium 3.9 Chloride 105 Carbon Dioxide 26.5 Anion Gap 11 BUN 24 H Creatinine 1.2 Estim Creat Clear Calc 75.3 eGFR > 60 BUN/Creatinine Ratio 20 Glucose 291 H D Calculated Osmolality 298 H Calcium 8.3 Corrected Calcium 9.2 Phosphorus 5.1 Magnesium 1.7 Iron TIBC Iron Saturation Unsat Iron Binding Ferritin Total Bilirubin 1.2 AST 20 ALT 26 Alkaline Phosphatase 158 H D Troponin I Total Protein 6.5 Albumin 2.9 L D Globulin 3.6 H Albumin/Globulin Ratio 0.8 L Vitamin B12 Folate Influenza A (Rapid) Negative Influenza B (Rapid) Negative ABG Interpretation ABG results: 07/20/25 17:10 ABG pH Cancelled ABG pCO2 Cancelled ABG pO2 Cancelled ABG HCO3 Cancelled ABG O2 Saturation Cancelled ABG Base Excess Cancelled Quality Measures Quality Measures none Assessment & Plan Assessment Current Active Medications: Generic Name Dose Route Start Last Admin Trade Name Freq PRN Reason Stop Dose Admin Acetaminophen 650 mg 07/20/25 18:20 07/21/25 04:01 Acetaminophen 325 Mg Tablet PO 08/19/25 18:19 650 mg Q6HR PRN Administration Temp >100 or Pain 1-3 Albuterol/Ipratropium 3 ml 07/20/25 18:20 07/22/25 08:59 Albuterol/Ipratropium (Duoneb) Rt Jane 3 Ml Nebu INH 08/19/25 18:19 3 ml Q2HR PRN Administration SHORTNESS OF BREATH OR WHEEZE Atorvastatin Calcium 40 mg 07/21/25 21:00 07/21/25 21:01 Atorvastatin Calcium 20 Mg Tablet PO 08/20/25 20:59 40 mg HS ERICH Administration Dextrose 50 ml 07/20/25 18:12 07/21/25 07:10 Dextrose 50%-Water Inj 50 Ml Syringe IV 08/19/25 18:11 50 ml Q15MIN PRN Administration BG <50 OR BG <70 & pt unresponsive Furosemide 40 mg 07/21/25 06:00 07/22/25 05:20 Furosemide Inj 10 Mg/Ml 4ml Vial IVP 08/20/25 05:59 40 mg BIDD ERICH Administration Gabapentin 100 mg 07/21/25 10:00 07/22/25 08:22 Gabapentin 100 Mg Capsule PO 08/20/25 09:59 100 mg QDAY ERICH Administration Glucagon 1 mg 07/20/25 18:12 Glucagon Inj 1 Mg Vial IM Q15MIN PRN BG <70, and no IV access Heparin Sodium (Porcine) 5,000 unit 07/20/25 22:00 07/22/25 05:20 Heparin Sod Inj 5000 Unit/Ml Vial SC 08/03/25 21:59 5,000 unit Q8HR ERICH Administration Insulin Degludec 15 unit 07/22/25 08:00 07/22/25 08:23 Insulin Degludec 5 Unit/0.05 Ml (Per 5 Units) SC 08/21/25 07:59 15 unit QDAY ERICH Administration Insulin Human Lispro 0 unit 07/20/25 21:00 07/22/25 11:36 Insulin Lispro (Admelog) 1 Unit/0.01 Ml Unit SC 08/19/25 20:59 4 unit ACHS ERICH Administration Protocol Metoprolol Succinate 25 mg 07/22/25 09:00 07/22/25 08:22 Metoprolol Succinate Xl 25 Mg Tabcr PO 08/21/25 08:59 25 mg QDAY ERICH Administration Ondansetron HCl 4 mg 07/20/25 18:20 Ondansetron Inj 2 Mg/Ml Inj 2 Ml IVP 08/19/25 18:19 Q6HR PRN NAUSEA OR VOMITING Protocol Sacubitril/Valsartan 1 tab 07/22/25 09:00 12/22/25 10:17 Sacubitril 24 Mg/Valsartan 26 Mg Tablet PO 08/21/25 08:59 1 tab BID ERICH Administration Plan Isra Ramirez 50M pmhx significant for IDDM2 with neuropathy, HTN, HFrEF (25-30%), hx of methamphetamine use, hx of valley fever who presents with orthopnea and PND. #Acute hypoxic respiratory failure 2/2 #Acute on chronic HFrEF (25-30%), NYHA IV, stage D Presented with 3 days of orthopnea and PND, denies dyspnea on exertion and has inconsistent leg swelling (L vs R and sometimes toes vs legs). On admission satuaring 98% on 4L NC, BNP 1128. CXR: mild heart failure. Endorses ran out of Entresto and carvedilol from prior admission as he has not seen a in shop service technician since. Plan: - IV lasix 40 mg BID, goal net neg 2-3L over 24h; 1x additional lasix 40 IV today - Strict I&Os, daily weights, 1.5L fluid restriction - Metoprolol succinate 25 daily - Entresto PO BID - Keep K>4 and Mg>2 at all times - F/u anemia workup and and lipid panel - Cardiology consulted, thank you for recs; echo ordered, showed EF 20-25% vs 25-30 previously #Hyperglycemia #IDDM2 #Diabetic neuropathy On admission glucose 499 with bicarb 25. Reports being adherent to 48u of Tresiba and metformin. s/p insulin degludac 25u and regular 10u in ED Plan: - Insulin degludac 15 units - SSI step 3 - Gabapentin 100 qday for neuropathy #NSTEMI, likely type II On admission troponin 0.44 likely demand ischemia iso volume overload. last troponin 0.45. Plan: - Trend troponin until downtrend #Hx of methamphetamine use Admits last use 06/2025 on previous admission, smoked. Plan: - F/u UDS - Counseled extensively regarding cessation #Elevated d-dimer On admission Ddimer 933. BLE US neg for DVT but limited study. Wells score 1.5, low risk. Plan: - Will defer CTA chest due to low Wells score. Hospital management: Lines: PIV Diet: carb consistent low, 1.5L fluid restriction Bowel: none GI prophylaxis: not indicated DVT prophylaxis: Disposition: tele, CHF exacerbation IV diuresis CODE STATUS: FULL CODE Plan of care discussed with attending Dr. Mccrary, and senior Dr. Wilkinson. Ruben Kowalski, PGY1 Senior Resident Attestation: The patient reported continuing to be SOB, especially while laying flat on his back, and has good net negative of about 1.2 L overnight, and he is Lasix dose was continued, and 1 dose of 40 mg IV Lasix was given. Will continue to diurese the patient, and as his blood pressure was okay, he was started on Entresto. He was started on degludeg 15 U daily, and we will Patient likely to be discharged tomorrow day after tomorrow depending on the patient's improvement. I discussed with and supervised the internet security specialist physician involved in the care of this patient. I personally saw and examined the patient and discussed the assessment and plan with the entire medicine team, including my attending. I agree with the assessment and plan as documented above. Osiel Wilkinson MD PGY3 Internal Medicine Attending Provider Attestation/Addendum I have seen and examined the patient. I was physically present for the william portions of the services provided including history, physical exam, diagnosis, treatment plans and orders. I agree with assessment and plan of care as documented by residents. Even though this this note was carefully revised there may still be minor errors in broach grinder due to voice recognition software. Jessica Mccrary MD
--- NOTE | 2025-07-22 14:20 | PC.RT ---
Pt given prn @0859 for SOB, WOB somewhat improved, o2 sats maintaining @ 96 on 1L NC.
[2025-07-22] MEDS: INSULIN LISPRO (AdmeLOG) 1 UNIT/0.01 ML UNIT 5 UNIT SC (16:59)
[2025-07-22] MEDS: ATORVASTATIN CALCIUM 20 MG TABLET 40 MG PO (21:24)
[2025-07-23] VITALS (11 sets, daily range): BP systolic 113–136; BP diastolic 90–99; PULSE 98–118; RESP 12–89; TEMP 36.1–36.9; O2SAT 95–99
[2025-07-23] MEDS: FUROSEMIDE INJ 10 MG/ML 4ML VIAL 40 MG IVP ×2 (05:53→09:13)
[2025-07-23] MEDS: HEPARIN SOD INJ 5000 UNIT/ML VIAL SC ×3 (05:54→21:11)
[2025-07-23 06:33] LABS: Basophils # (Auto) 0.0 Thou/mm3 (0.0-0.2); Basophils % (Auto) 0 % (0-2.5); Eosinophils # (Auto) 0.2 Thou/mm3 (0.0-0.5); Eosinophils % (Auto) 3 % (0-10); Hematocrit 38.2 % (41.0-53.0); Hemoglobin 13.5 g/dL (13.5-16.0); Immature Granulocytes Auto 0.06 Thou/mm3 (0.00-0.00); Lymphocytes # (Auto) 1.9 Thou/mm3 (1.0-4.8); Lymphocytes % (Auto) 19 % (10-50); Mean Corpuscular HGB Conc 35.3 g/dl (31.0-37.0); Mean Corpuscular Hemoglobin 30.5 pg (25.0-35.0); Mean Corpuscular Volume 86 fL (80-100); Monocytes # (Auto) 0.8 Thou/mm3 (0.0-0.8); Monocytes % (Auto) 8 % (0-12); Neutrophils # (Auto) 6.7 Thou/mm3 (1.8-7.7); Neutrophils % (Auto) 69 % (37-80); Nucleated Red Blood Cell # 0.02 Thou/mm3 (0.00-0.00); Nucleated Red Blood Cell % 0 /100 WBC (0); Platelet Count 248 Thou/mm3 (140-440); RDW Standard Deviation 49.6 fL (35.1-43.9); Red Blood Count 4.43 Miln/mm3 (4.50-5.90); White Blood Count 9.7 Thou/mm3 (3.8-10.6)
[2025-07-23 06:57] LABS: Alanine Aminotransferase 21 U/L (10-49); Albumin, Serum 3.2 gm/dL (3.5-5.0); Albumin/Globulin Ratio 1.0 (1.2-2.2); Alkaline Phosphatase 126 U/L (46-116); Anion Gap 11 (7-16); Aspartate Amino Transferase 23 U/L (0-34); BUN/Creatinine Ratio 19 Ratio (12-20); Bilirubin,Total 1.5 mg/dL (0.3-1.2); Blood Urea Nitrogen 21 mg/dL (9-23); Calcium 8.0 mg/dL (8.3-10.6); Calcium (Corrected) 8.6 mg/dL (8.5-10.1); Carbon Dioxide 29.7 mMol/L (20.0-31.0); Chloride 105 mMol/L (98-107); Creatinine (Component) 1.1 mg/dL (0.6-1.3); Estimated Creatinine Clearance 79.5 mL/min (>60); Globulin 3.2 gm/dL (2.3-3.5); Glucose 125 mg/dL (74-106); Magnesium 1.6 mg/dL (1.6-2.6); Osmolality,Calculated 294 (275-295); Phosphorous 3.7 mg/dL (2.4-5.1); Potassium 3.9 mMol/L (3.4-5.1); Sodium 146 mMol/L (136-145); Total Protein 6.4 gm/dL (5.7-8.2); eGFR > 60 See Note
[2025-07-23] MEDS: INSULIN LISPRO (AdmeLOG) 1 UNIT/0.01 ML UNIT 5 UNIT SC ×2 (07:16→17:48)
[2025-07-23] MEDS: Magnesium Sulfate 4 GM Ivpb 4 GM/50 ML BAG IV (09:11)
[2025-07-23] MEDS: MAGNESIUM OXIDE 400 MG TABLET PO (09:12)
[2025-07-23] MEDS: METOPROLOL SUCCINATE XL 25 MG TABCR 50 MG PO (09:12)
[2025-07-23] MEDS: GABAPENTIN 100 MG CAPSULE PO (09:12)
[2025-07-23] MEDS: INSULIN DEGLUDEC 5 UNIT/0.05 ML (PER 5 UNITS) 10 UNIT SC (09:36)
--- NOTE | 2025-07-23 11:24 | ESPR_ITS ---
Documentation for date of: 07/23/25 Subjective Subjective Interval history: Patient seen and examined at bedside; no acute events overnight. Net output is 920mL; will increase lasix to 80 BID, metoprolol to 50, and add ensure at mealtimes to improve protein. Now on degludec 10 and lispro 5 TID. Edema improving (1+ to low to mid-reyes). Exam Vital Signs Temp Pulse Resp BP Pulse Ox O2 Del Method O2 Flow Rate 97.1 F 106 H 17 116/91 H 97 Room Air 1 07/23/25 08:00 07/23/25 09:13 07/23/25 08:00 07/23/25 09:13 07/23/25 08:00 07/23/25 08:00 07/23/25 08:00 FiO2 2 07/23/25 04:00 Narrative Exam GENERAL: AOx3, no acute distress HEENT: mucous membranes moist, bilateral sclera, anicteric CARDIOVASCULAR: regular rate and rhythm, S1/S2 present, no murmurs appreciated PULMONARY: CTA ABDOMINAL: soft, non-tender, non-distended, no rebound/guarding, bowel sounds present EXTREMITIES: pitting edema bilaterally but improving (now 1+), chronic venous stasis dermatitis SKIN: warm and dry, intact, no rashes NEURO: CN II-XII grossly intact, no focal deficits, alert, following commands Objective Labs 07/23/25 04:38 07/23/25 04:38 Labs: Laboratory Results - last 24 hr 07/23/25 04:38 WBC 9.7 RBC 4.43 L Hgb 13.5 Hct 38.2 L MCV 86 MCH 30.5 MCHC 35.3 RDW Std Deviation 49.6 H Plt Count 248 Neut % (Auto) 69 Lymph % (Auto) 19 [place] % (Auto) 8 Eos % (Auto) 3 Baso % (Auto) 0 Neut # (Auto) 6.7 Lymph # (Auto) 1.9 [place] # (Auto) 0.8 Eos # (Auto) 0.2 Baso # (Auto) 0.0 Immature Gran # (Auto) 0.06 H Absolute Nucleated RBC 0.02 H Immature Gran % 1 H Nucleated RBC % 0 Sodium 146 H Potassium 3.9 Chloride 105 Carbon Dioxide 29.7 Anion Gap 11 BUN 21 Creatinine 1.1 Estim Creat Clear Calc 79.5 eGFR > 60 BUN/Creatinine Ratio 19 Glucose 125 H D Calculated Osmolality 294 Calcium 8.0 L Corrected Calcium 8.6 Phosphorus 3.7 Magnesium 1.6 Total Bilirubin 1.5 H AST 23 ALT 21 Alkaline Phosphatase 126 H D Total Protein 6.4 Albumin 3.2 L Globulin 3.2 Albumin/Globulin Ratio 1.0 L ABG Interpretation ABG results: 07/20/25 17:10 ABG pH Cancelled ABG pCO2 Cancelled ABG pO2 Cancelled ABG HCO3 Cancelled ABG O2 Saturation Cancelled ABG Base Excess Cancelled Quality Measures Quality Measures none Assessment & Plan Assessment Current Active Medications: Generic Name Dose Route Start Last Admin Trade Name Freq PRN Reason Stop Dose Admin Acetaminophen 650 mg 07/20/25 18:20 07/21/25 04:01 Acetaminophen 325 Mg Tablet PO 08/19/25 18:19 650 mg Q6HR PRN Administration Temp >100 or Pain 1-3 Albuterol/Ipratropium 3 ml 07/20/25 18:20 07/22/25 08:59 Albuterol/Ipratropium (Duoneb) Rt Jane 3 Ml Nebu INH 08/19/25 18:19 3 ml Q2HR PRN Administration SHORTNESS OF BREATH OR WHEEZE Atorvastatin Calcium 40 mg 07/21/25 21:00 07/22/25 21:24 Atorvastatin Calcium 20 Mg Tablet PO 08/20/25 20:59 40 mg HS ERICH Administration Dextrose 50 ml 07/20/25 18:12 07/21/25 07:10 Dextrose 50%-Water Inj 50 Ml Syringe IV 08/19/25 18:11 50 ml Q15MIN PRN Administration BG <50 OR BG <70 & pt unresponsive Furosemide 80 mg 07/23/25 18:00 Furosemide Inj 10 Mg/Ml 4ml Vial IVP 08/22/25 17:59 BIDD ERICH Gabapentin 100 mg 07/21/25 10:00 07/23/25 09:12 Gabapentin 100 Mg Capsule PO 08/20/25 09:59 100 mg QDAY ERICH Administration Glucagon 1 mg 07/20/25 18:12 Glucagon Inj 1 Mg Vial IM Q15MIN PRN BG <70, and no IV access Heparin Sodium (Porcine) 5,000 unit 07/20/25 22:00 07/23/25 05:54 Heparin Sod Inj 5000 Unit/Ml Vial SC 08/03/25 21:59 5,000 unit Q8HR ERICH Administration Magnesium Sulfate 4 gm in 50 mls @ 12.5 mls/hr 07/23/25 07:59 07/23/25 09:11 Magnesium Sulfate Ivpb IV 07/23/25 11:58 12.5 mls/hr X1 ONE Administration Insulin Degludec 10 unit 07/23/25 09:45 07/23/25 09:36 Insulin Degludec 5 Unit/0.05 Ml (Per 5 Units) SC 08/22/25 09:44 10 unit QDAY ERICH Administration Insulin Human Lispro 0 unit 07/20/25 21:00 07/23/25 11:13 Insulin Lispro (Admelog) 1 Unit/0.01 Ml Unit SC 08/19/25 20:59 Not Given ACHS [facility] Protocol Insulin Human Lispro 5 unit 07/22/25 17:30 07/23/25 11:14 Insulin Lispro (Admelog) 1 Unit/0.01 Ml Unit SC 08/21/25 17:29 Not Given TIDWM ERICH Metoprolol Succinate 50 mg 07/23/25 09:00 07/23/25 09:12 Metoprolol Succinate Xl 25 Mg Tabcr PO 08/22/25 08:59 50 mg QDAY ERICH Administration Ondansetron HCl 4 mg 07/20/25 18:20 Ondansetron Inj 2 Mg/Ml Inj 2 Ml IVP 08/19/25 18:19 Q6HR PRN NAUSEA OR VOMITING Protocol Sacubitril/Valsartan 1 tab 07/22/25 09:00 07/23/25 09:12 Sacubitril 24 Mg/Valsartan 26 Mg Tablet PO 08/21/25 08:59 1 tab BID ERICH Administration Plan Isra Ramirez 50M pmhx significant for IDDM2 with neuropathy, HTN, HFrEF (25- 30%), hx of methamphetamine use, hx of valley fever who presents with orthopnea and PND. #Acute hypoxic respiratory failure 2/2 #Acute on chronic HFrEF (25-30%), NYHA IV, stage D Presented with 3 days of orthopnea and PND, denies dyspnea on exertion and has inconsistent leg swelling (L vs R and sometimes toes vs legs). On admission satuaring 98% on 4L NC, BNP 1128. CXR: mild heart failure. Endorses ran out of Entresto and carvedilol from prior admission as he has not seen a technical services rep since. Net output is 920mL on 07/23 overnight Plan: - IV lasix 80 mg BID, goal net neg 2-3L over 24h - Strict I&Os, daily weights, 1.5L fluid restriction - Metoprolol succinate 50 daily - Entresto PO BID - Keep K>4 and Mg>2 at all times - Ensure with meals to improve protein - F/u anemia workup and and lipid panel - Cardiology consulted, thank you for recs; echo ordered, showed EF 20-25% vs 25-30 previously #Hyperglycemia #IDDM2 #Diabetic neuropathy On admission glucose 499 with bicarb 25. Reports being adherent to 48u of Tresiba and metformin. s/p insulin degludac 25u and regular 10u in ED Plan: - Insulin degludac 10 units, lispro 5 units with meals - SSI step 3 - Gabapentin 100 qday for neuropathy #NSTEMI, likely type II On admission troponin 0.44 likely demand ischemia iso volume overload. Plan: - Last troponin 0.355, downtrend #Hx of methamphetamine use Admits last use 06/2025 on previous admission, smoked. Plan: - F/u UDS - Counseled extensively regarding cessation #Elevated d-dimer On admission Ddimer 933. BLE US neg for DVT but limited study. Wells score 1.5, low risk. Plan: - Will defer CTA chest due to low Wells score. Hospital management: Lines: PIV Diet: carb consistent low, 1.5L fluid restriction Bowel: none GI prophylaxis: not indicated DVT prophylaxis: Disposition: tele, CHF exacerbation IV diuresis CODE STATUS: FULL CODE Plan of care discussed with attending Dr. Mccrary, and senior Dr. Wilkinson. Ruben Kowalski MD, PGY1 Senior Resident Attestation: The patient reported doing much better this morning, he is orthopnea has not been there today. He has been net negative by 920 cc, and we increased Lasix 40 mg IV twice daily to 80 mg IV twice daily. Electrolytes were repleted, increased metoprolol succinate to 50 mg daily and was started on Ensure for low albumin. If he is stable by tomorrow, likely to be discharged home. I discussed with and supervised the education intern physician involved in the care of this patient. I personally saw and examined the patient and discussed the assessment and plan with the entire medicine team, including my attending. I agree with the assessment and plan as documented above. Osiel Wilkinson MD PGY3 Internal Medicine Attending Provider Attestation/Addendum I have seen and examined the patient. I was physically present for the william portions of the services provided including history, physical exam, diagnosis, treatment plans and orders. I agree with assessment and plan of care as documented by residents. Even though this this note was carefully revised there may still be minor errors in preassembler printed circuit board due to voice recognition software. Jessica Mccrary MD
--- NOTE | 2025-07-23 11:55 | PD.RESPRO ---
Documentation for date of: 07/23/25 Subjective Subjective Interval history: Mr. 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 Patient reported for the last 3 days that he has had progressive shortness of breath which has been worsening, endorses difficulty breathing while lying flat and reports waking up in the middle of the night 4-5 times with the feeling that he is drowning. Patient complains of shortness of breath on rest, reports that he has bilateral lower extremity swelling, reported that he has recently ran out of his medication and was unable to see a group therapist outpatient. Patient otherwise denies any chest pain, palpitations, syncope, dizziness, fevers, chills, headache, nausea, vomiting and recent sick contacts. Of note patient was recently discharged in June 2025 for right lower extremity cellulitis. ED course: On presentation patient's blood pressure 157/123, heart rate 114, respiratory rate 20, temp 98.0, O2 sat 98 on room air. ED labs pertinent for WBC 7.4, hemoglobin 14.0, platelet count 270, D-dimer 933, potassium 4.4, sodium 138, chloride 104, anion gap 9, BUN 17, creatinine 1.2, GFR greater than 60, glucose 499, A1c 11.7, osmolality 299, lactate 1.5, calcium 8.9, magnesium 1.5, AST 18, ALT 28, alk phos 159, CK 94, troponin. 0.440, BNP 1128, albumin 3.3, Pro-Trace negative, TSH 1.73, blood alcohol level negative. Chest x-ray on presentation shows mild vascular congestion, EKG on presentation shows sinus tachycardia, rate 117, right bundle branch block. Bilateral venous Doppler negative for DVT. Cardiology consulted for acute decompensated heart failure in setting of chronic systolic and diastolic heart failure. 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 -Alcohol Use: Occasionally drinks alcohol -Illicit Drug Use: Last methamphetamine use June 2025 -Martial Status: lives with and son Family History: History of congestive heart failure in mother. 07/20/2025: Diuresis with Lasix 40 mg IV twice daily, Home dose Coreg 6.25 mg p.o. twice daily resumed, consider starting on ARNI as blood pressure permissible for GDMT, Trend troponin until it downtrends 07/21/2025: No Overnight events. Labs reviewed and patient examined at the bedside. Continue IV Lasix 40mg bid. Recommend changing Coreg to Metoprolol 25mg po qd. Start patient on Sacubitril-Valsartan when BP is permissible. Continue to trend troponin. Mg 2.0, K:4.0, Cr: 1.2, UoP:2.4L. Denies chest pain, palpation, abdominal pain, N/V, fevers or chills. 07/22/2025: No Overnight events. Labs reviewed and patient examined at the bedside. Continue IV lasix 40mg bid. This morning, patient's BP was 145/106 with HI of 113. Started on Entresto 24-26 po bid. His current BP is 124/96 with HR of 106. Recommend increasing Metoprolol from 25mg to 50mg po qd. Troponin trended down from 0.410 to 0.355. M.7, K: 3.9, UoP: 1.8L. Denies chest pain, palpation, SOB, abdominal pain, N/V, fevers or chills. 07/23/2025: BP 113/90 with HI 98. Continue with IV lasix 40mg bid, Entresto 24-26 po bid, Metoprolol 50mg po qd. M.6, and K 3.9. Will continue current managment. Denies any chest pain or palpitations. No other complaints at this moment. Exam Vital Signs Temp Pulse Resp BP Pulse Ox O2 Del Method O2 Flow Rate 97.1 F 106 H 17 116/91 H 97 Room Air 1 07/23/25 08:00 07/23/25 09:13 07/23/25 08:00 07/23/25 09:13 07/23/25 08:00 07/23/25 08:00 07/23/25 08:00 FiO2 2 07/23/25 04:00 Narrative Exam GENERAL: AOx3, no acute distress, on NC 2L HEENT: mucous membranes moist, bilateral sclera anicteric CARDIOVASCULAR: regular rate and rhythm, S1/S2 present, no murmurs appreciated PULMONARY: crackles at bilateral bases ABDOMINAL: soft, non-tender, non-distended, no rebound/guarding, bowel sounds present EXTREMITIES: 1+ pitting edema bilaterally, chronic venous stasis dermatitis SKIN: warm and dry, intact, no rashes NEURO: CN II-XII grossly intact, no focal deficits, alert, following commands Objective Labs 07/23/25 04:38 07/23/25 04:38 Labs: Laboratory Results - last 24 hr 07/23/25 04:38 WBC 9.7 RBC 4.43 L Hgb 13.5 Hct 38.2 L MCV 86 MCH 30.5 MCHC 35.3 RDW Std Deviation 49.6 H Plt Count 248 Neut % (Auto) 69 Lymph % (Auto) 19 [place] % (Auto) 8 Eos % (Auto) 3 Baso % (Auto) 0 Neut # (Auto) 6.7 Lymph # (Auto) 1.9 [place] # (Auto) 0.8 Eos # (Auto) 0.2 Baso # (Auto) 0.0 Immature Gran # (Auto) 0.06 H Absolute Nucleated RBC 0.02 H Immature Gran % 1 H Nucleated RBC % 0 Sodium 146 H Potassium 3.9 Chloride 105 Carbon Dioxide 29.7 Anion Gap 11 BUN 21 Creatinine 1.1 Estim Creat Clear Calc 79.5 eGFR > 60 BUN/Creatinine Ratio 19 Glucose 125 H D Calculated Osmolality 294 Calcium 8.0 L Corrected Calcium 8.6 Phosphorus 3.7 Magnesium 1.6 Total Bilirubin 1.5 H AST 23 ALT 21 Alkaline Phosphatase 126 H D Total Protein 6.4 Albumin 3.2 L Globulin 3.2 Albumin/Globulin Ratio 1.0 L ABG Interpretation ABG results: 07/20/25 17:10 ABG pH Cancelled ABG pCO2 Cancelled ABG pO2 Cancelled ABG HCO3 Cancelled ABG O2 Saturation Cancelled ABG Base Excess Cancelled Quality Measures Quality Measures none Assessment & Plan Assessment Current Active Medications: Generic Name Dose Route Start Last Admin Trade Name Da PRN Reason Stop Dose Admin Acetaminophen 650 mg 07/20/25 18:20 07/21/25 04:01 Acetaminophen 325 Mg Tablet PO 08/19/25 18:19 650 mg Q6HR PRN Administration Temp >100 or Pain 1-3 Albuterol/Ipratropium 3 ml 07/20/25 18:20 07/22/25 08:59 Albuterol/Ipratropium (Duoneb) Rt Jane 3 Ml Nebu INH 08/19/25 18:19 3 ml Q2HR PRN Administration SHORTNESS OF BREATH OR WHEEZE Atorvastatin Calcium 40 mg 07/21/25 21:00 07/22/25 21:24 Atorvastatin Calcium 20 Mg Tablet PO 08/20/25 20:59 40 mg HS ERICH Administration Dextrose 50 ml 07/20/25 18:12 07/21/25 07:10 Dextrose 50%-Water Inj 50 Ml Syringe IV 08/19/25 18:11 50 ml Q15MIN PRN Administration BG <50 OR BG <70 & pt unresponsive Furosemide 80 mg 07/23/25 18:00 Furosemide Inj 10 Mg/Ml 4ml Vial IVP 08/22/25 17:59 BIDD ERICH Gabapentin 100 mg 07/21/25 10:00 07/23/25 09:12 Gabapentin 100 Mg Capsule PO 08/20/25 09:59 100 mg QDAY ERICH Administration Glucagon 1 mg 07/20/25 18:12 Glucagon Inj 1 Mg Vial IM Q15MIN PRN BG <70, and no IV access Heparin Sodium (Porcine) 5,000 unit 07/20/25 22:00 07/23/25 05:54 Heparin Sod Inj 5000 Unit/Ml Vial SC 08/03/25 21:59 5,000 unit Q8HR ERICH Administration Magnesium Sulfate 4 gm in 50 mls @ 12.5 mls/hr 07/23/25 07:59 07/23/25 09:11 Magnesium Sulfate Ivpb IV 07/23/25 11:58 12.5 mls/hr X1 ONE Administration Insulin Degludec 10 unit 07/23/25 09:45 07/23/25 09:36 Insulin Degludec 5 Unit/0.05 Ml (Per 5 Units) SC 08/22/25 09:44 10 unit QDAY ERICH Administration Insulin Human Lispro 0 unit 07/20/25 21:00 07/23/25 11:13 Insulin Lispro (Admelog) 1 Unit/0.01 Ml Unit SC 08/19/25 20:59 Not Given ACHS [facility] Protocol Insulin Human Lispro 5 unit 07/22/25 17:30 07/23/25 11:14 Insulin Lispro (Admelog) 1 Unit/0.01 Ml Unit SC 08/21/25 17:29 Not Given TIDWM ERICH Metoprolol Succinate 50 mg 07/23/25 09:00 07/23/25 09:12 Metoprolol Succinate Xl 25 Mg Tabcr PO 08/22/25 08:59 50 mg QDAY ERICH Administration Ondansetron HCl 4 mg 07/20/25 18:20 Ondansetron Inj 2 Mg/Ml Inj 2 Ml IVP 08/19/25 18:19 Q6HR PRN NAUSEA OR VOMITING Protocol Sacubitril/Valsartan 1 tab 07/22/25 09:00 07/23/25 09:12 Sacubitril 24 Mg/Valsartan 26 Mg Tablet PO 08/21/25 08:59 1 tab BID ERICH Administration Plan Summary: Mr. 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 Cardiology consulted to establish care for heart failure. #Acute decompensated heart failure #Congestive systolic and diastolic heart failure with reduced ejection fraction, EF 25-30% Patient reported for the last 3 days that he has had progressive shortness of breath which has been worsening, endorses difficulty breathing while lying flat and reports waking up in the middle of the night 4-5 times with the feeling that he is drowning. Patient complains of shortness of breath on rest, reports that he has bilateral lower extremity swelling, Bilateral lower extremity edema noted, BNP 1120, chest x-ray shows mild vascular congestion. Echocardiogram 06/04/2025: 1. Left ventricle size is normal and systolic function is severely reduced. Estimated ejection fraction is 25-30%. There is grade III diastolic dysfunction. There is mild concentric hypertrophy noted. 2. Right ventricle chamber size is moderately enlarged and systolic function is mildly reduced. Estimated RVSP moderately elevated is 49 mmHg. 3. Flattening of the ventricular septum in mid to late systole consistent with right ventricular volume overload. 4. There is mild to moderate mitral valve regurgitation. 5. There is moderate tricuspid valve regurgitation. mild pulmonary regurgitation. 6. The left atrium is moderately enlarged. The right atrium is moderately enlarged. 7. There is no and trivial pericardial effusion. No tamponade. Recommendations: -Diuresis with Lasix 40 mg IV twice daily -Strict intake and output, daily weight, fluid restriction 1500 cc, low-sodium diet -Consider increasing Metoprolol to 50mg po qd heart rate is still high and blood pressure is permissible. -Continue Entresto as blood pressure as per GDMT recommendations -Consider obtaining iron panel in a.m. -Keep potassium greater than 4 and magnesium greater than 2 at all times #NSTEMI type II versus type I, likely type II demand ischemia-Resolved Patient denies any chest pain. EKG on presentation shows sinus tachycardia rate 117, right bundle branch block. Troponin 0.440--> 0.355 Patient's underlying troponin elevation in setting of demand ischemia Recommendations: ?Monitor for chest pain #Hypertension -On metoprolol 50mg po qd. -Continue on with entresto 24-26 po bid #Hyperlipidemia -Lipid panel shows triglycerides 79, cholesterol 140, LDL 81, HDL 43, hemoglobin A1c 11.7, TSH 1.73, -ASCVD risk score 14.4%: Risk of cardiovascular event in next 10 years. -Prevent risk of cardiovascular disease events, A1c model: 27.55% 10-year total CVD risk, 10-year heart failure risk 19.6, 10-year coronary heart disease risk 7.77 percent, 10-year stroke risk 8.69% Plan -Continue Atorvastatin 40mg po qd. #Uncontrolled insulin-dependent diabetes mellitus, A1c 11.7 #Diabetic neuropathy #History of methamphetamine use Counseled extensively regarding the need to completely stop the methamphetamine use and to follow regularly with the primary care clinic and and follow-up with his group therapist for further evaluation of ischemic versus nonischemic cardiomyopathy as outpatient. If nonischemic cardiomyopathy diagnosed and does not improve with goal-directed medical therapy and patient will need ICD for prevention of sudden cardiac . Patient explained importance of following up regularly with doctors given his severe systolic congestive heart failure in the setting of methamphetamine abuse. #Elevated D-dimer Management as per primary team Thank you for the consult and allowing to participate in the care of the patient. Cardiology will continue to follow. Assessment and plan discussed with my attending physician Dr. Sheridan Lopes (PGY-1) - Internal medicine resident Attending Provider Attestation/Addendum I have personally seen and examined the patient separately on the above date of service and discussed the plan of care with the resident. I reviewed the resident Dr. Duran Lopes consultation progress note and agree with the resident findings and plan in the note above and have also edited the documentation to reflect my findings and plan. Ramon Swartz M.D. Interventional Cardiology
[2025-07-23] MEDS: INSULIN LISPRO (AdmeLOG) 1 UNIT/0.01 ML UNIT SC ×2 (17:48→21:11)
[2025-07-23] MEDS: FUROSEMIDE INJ 10 MG/ML 4ML VIAL 80 MG IVP (17:49)
[2025-07-23] MEDS: ATORVASTATIN CALCIUM 20 MG TABLET 40 MG PO (21:10)
[2025-07-24] VITALS (9 sets, daily range): BP systolic 102–139; BP diastolic 89–110; PULSE 85–107; RESP 14–24; TEMP 36.2–37.3; O2SAT 91–99; BMI 23.1
[2025-07-24] MEDS: MELATONIN 3 MG TABLET PO (02:21)
[2025-07-24] MEDS: FUROSEMIDE INJ 10 MG/ML 4ML VIAL 80 MG IVP (05:32)
[2025-07-24] MEDS: HEPARIN SOD INJ 5000 UNIT/ML VIAL SC ×2 (05:33→13:56)
[2025-07-24 05:40] LABS: Basophils # (Auto) 0.0 Thou/mm3 (0.0-0.2); Basophils % (Auto) 0 % (0-2.5); Eosinophils # (Auto) 0.2 Thou/mm3 (0.0-0.5); Eosinophils % (Auto) 2 % (0-10); Hematocrit 39.3 % (41.0-53.0); Hemoglobin 13.9 g/dL (13.5-16.0); Immature Granulocytes Auto 0.05 Thou/mm3 (0.00-0.00); Lymphocytes # (Auto) 1.6 Thou/mm3 (1.0-4.8); Lymphocytes % (Auto) 17 % (10-50); Mean Corpuscular HGB Conc 35.4 g/dl (31.0-37.0); Mean Corpuscular Hemoglobin 30.3 pg (25.0-35.0); Mean Corpuscular Volume 86 fL (80-100); Monocytes # (Auto) 0.8 Thou/mm3 (0.0-0.8); Monocytes % (Auto) 8 % (0-12); Neutrophils # (Auto) 6.9 Thou/mm3 (1.8-7.7); Neutrophils % (Auto) 72 % (37-80); Nucleated Red Blood Cell # 0.02 Thou/mm3 (0.00-0.00); Nucleated Red Blood Cell % 0 /100 WBC (0); Platelet Count 267 Thou/mm3 (140-440); RDW Standard Deviation 49.2 fL (35.1-43.9); Red Blood Count 4.59 Miln/mm3 (4.50-5.90); White Blood Count 9.6 Thou/mm3 (3.8-10.6)
[2025-07-24 05:51] LABS: Alanine Aminotransferase 17 U/L (10-49); Albumin, Serum 3.2 gm/dL (3.5-5.0); Albumin/Globulin Ratio 1.0 (1.2-2.2); Alkaline Phosphatase 140 U/L (46-116); Anion Gap 12 (7-16); Aspartate Amino Transferase 17 U/L (0-34); BUN/Creatinine Ratio 23 Ratio (12-20); Bilirubin,Total 1.2 mg/dL (0.3-1.2); Blood Urea Nitrogen 25 mg/dL (9-23); Calcium 8.3 mg/dL (8.3-10.6); Calcium (Corrected) 8.9 mg/dL (8.5-10.1); Carbon Dioxide 28.3 mMol/L (20.0-31.0); Chloride 103 mMol/L (98-107); Creatinine (Component) 1.1 mg/dL (0.6-1.3); Estimated Creatinine Clearance 79.5 mL/min (>60); Globulin 3.3 gm/dL (2.3-3.5); Glucose 254 mg/dL (74-106); Magnesium 1.9 mg/dL (1.6-2.6); Osmolality,Calculated 298 (275-295); Phosphorous 3.9 mg/dL (2.4-5.1); Potassium 4.0 mMol/L (3.4-5.1); Sodium 143 mMol/L (136-145); Total Protein 6.5 gm/dL (5.7-8.2); eGFR > 60 See Note
--- NOTE | 2025-07-24 06:00 | PC.NURSE ---
pt sleeping on room air, respiration unlabored, RR 17, SPO2 98%, with episodes of SPO2 dropping down briefly to low 80's and back up high 90's. on continuos pulse ox.
[2025-07-24] MEDS: INSULIN LISPRO (AdmeLOG) 1 UNIT/0.01 ML UNIT 5 UNIT SC ×3 (07:52→17:35)
[2025-07-24] MEDS: INSULIN DEGLUDEC 5 UNIT/0.05 ML (PER 5 UNITS) 20 UNIT SC (07:52)
[2025-07-24] MEDS: INSULIN LISPRO (AdmeLOG) 1 UNIT/0.01 ML UNIT SC ×3 (07:53→17:35)
--- NOTE | 2025-07-24 08:00 | PD.RESPRO ---
Documentation for date of: 07/24/25 Subjective Subjective Interval history: Mr. 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 Patient reported for the last 3 days that he has had progressive shortness of breath which has been worsening, endorses difficulty breathing while lying flat and reports waking up in the middle of the night 4-5 times with the feeling that he is drowning. Patient complains of shortness of breath on rest, reports that he has bilateral lower extremity swelling, reported that he has recently ran out of his medication and was unable to see a systems eng outpatient. Patient otherwise denies any chest pain, palpitations, syncope, dizziness, fevers, chills, headache, nausea, vomiting and recent sick contacts. Of note patient was recently discharged in June 2025 for right lower extremity cellulitis. ED course: On presentation patient's blood pressure 157/123, heart rate 114, respiratory rate 20, temp 98.0, O2 sat 98 on room air. ED labs pertinent for WBC 7.4, hemoglobin 14.0, platelet count 270, D-dimer 933, potassium 4.4, sodium 138, chloride 104, anion gap 9, BUN 17, creatinine 1.2, GFR greater than 60, glucose 499, A1c 11.7, osmolality 299, lactate 1.5, calcium 8.9, magnesium 1.5, AST 18, ALT 28, alk phos 159, CK 94, troponin. 0.440, BNP 1128, albumin 3.3, Pro-Trace negative, TSH 1.73, blood alcohol level negative. Chest x-ray on presentation shows mild vascular congestion, EKG on presentation shows sinus tachycardia, rate 117, right bundle branch block. Bilateral venous Doppler negative for DVT. Cardiology consulted for acute decompensated heart failure in setting of chronic systolic and diastolic heart failure. 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 -Alcohol Use: Occasionally drinks alcohol -Illicit Drug Use: Last methamphetamine use June 2025 -Martial Status: lives with and son Family History: History of congestive heart failure in mother. 07/20/2025: Diuresis with Lasix 40 mg IV twice daily, Home dose Coreg 6.25 mg p.o. twice daily resumed, consider starting on ARNI as blood pressure permissible for GDMT, Trend troponin until it downtrends 07/21/2025: No Overnight events. Labs reviewed and patient examined at the bedside. Continue IV Lasix 40mg bid. Recommend changing Coreg to Metoprolol 25mg po qd. Start patient on Sacubitril-Valsartan when BP is permissible. Continue to trend troponin. Mg 2.0, K:4.0, Cr: 1.2, UoP:2.4L. Denies chest pain, palpation, abdominal pain, N/V, fevers or chills. 07/22/2025: No Overnight events. Labs reviewed and patient examined at the bedside. Continue IV lasix 40mg bid. This morning, patient's BP was 145/106 with [place] of 113. Started on Entresto 24-26 po bid. His current BP is 124/96 with HR of 106. Recommend increasing Metoprolol from 25mg to 50mg po qd. Troponin trended down from 0.410 to 0.355. M.7, K: 3.9, UoP: 1.8L. Denies chest pain, palpation, SOB, abdominal pain, N/V, fevers or chills. 07/23/2025: BP 113/90 with [place] 98. Continue with IV lasix 40mg bid, Entresto 24-26 po bid, Metoprolol 50mg po qd. M.6, and K 3.9. Will continue current managment. Denies any chest pain or palpitations. No other complaints at this moment. 07/24/2025: Patient's vitals are stable with BP 123/89 with HR 97. Patient denies any chest pain, palpitation, or SOB. Patient is okay to be discharged with Bemetanide 1mg po qd (Instruct the patient to take it bid if swelling with SOB), Entresto 24-26 po bid, Metoprolol 50mg po qd. Exam Vital Signs Temp Pulse Resp BP Pulse Ox O2 Del Method O2 Flow Rate 97.6 F 97 14 123/89 H 97 Room Air 1 07/24/25 12:00 07/24/25 12:00 07/24/25 12:00 07/24/25 12:00 07/24/25 12:00 07/24/25 12:00 07/24/25 06:45 FiO2 2 07/23/25 04:00 Narrative Exam GENERAL: AOx3, no acute distress HEENT: mucous membranes moist, bilateral sclera anicteric CARDIOVASCULAR: regular rate and rhythm, S1/S2 present, no murmurs appreciated PULMONARY: crackles at bilateral bases ABDOMINAL: soft, non-tender, non-distended, no rebound/guarding, bowel sounds present EXTREMITIES: 1+ pitting edema bilaterally, chronic venous stasis dermatitis SKIN: warm and dry, intact, no rashes NEURO: CN II-XII grossly intact, no focal deficits, alert, following commands Objective Labs 07/24/25 04:20 07/24/25 04:20 Labs: Laboratory Results - last 24 hr 07/24/25 04:20 WBC 9.6 RBC 4.59 Hgb 13.9 Hct 39.3 L MCV 86 MCH 30.3 MCHC 35.4 RDW Std Deviation 49.2 H Plt Count 267 Neut % (Auto) 72 Lymph % (Auto) 17 [place] % (Auto) 8 Eos % (Auto) 2 Baso % (Auto) 0 Neut # (Auto) 6.9 Lymph # (Auto) 1.6 [place] # (Auto) 0.8 Eos # (Auto) 0.2 Baso # (Auto) 0.0 Immature Gran # (Auto) 0.05 H Absolute Nucleated RBC 0.02 H Immature Gran % 1 H Nucleated RBC % 0 Sodium 143 Potassium 4.0 Chloride 103 Carbon Dioxide 28.3 Anion Gap 12 BUN 25 H Creatinine 1.1 Estim Creat Clear Calc 79.5 eGFR > 60 BUN/Creatinine Ratio 23 H Glucose 254 H D Calculated Osmolality 298 H Calcium 8.3 Corrected Calcium 8.9 Phosphorus 3.9 Magnesium 1.9 Total Bilirubin 1.2 AST 17 ALT 17 Alkaline Phosphatase 140 H Total Protein 6.5 Albumin 3.2 L Globulin 3.3 Albumin/Globulin Ratio 1.0 L ABG Interpretation ABG results: 07/20/25 17:10 ABG pH Cancelled ABG pCO2 Cancelled ABG pO2 Cancelled ABG HCO3 Cancelled ABG O2 Saturation Cancelled ABG Base Excess Cancelled Quality Measures Quality Measures none Assessment & Plan Assessment Current Active Medications: Generic Name Dose Route Start Last Admin Trade Name Freq PRN Reason Stop Dose Admin Acetaminophen 650 mg 07/20/25 18:20 07/21/25 04:01 Acetaminophen 325 Mg Tablet PO 08/19/25 18:19 650 mg Q6HR PRN Administration Temp >100 or Pain 1-3 Albuterol/Ipratropium 3 ml 07/20/25 18:20 07/22/25 08:59 Albuterol/Ipratropium (Duoneb) Rt Jane 3 Ml Nebu INH 08/19/25 18:19 3 ml Q2HR PRN Administration SHORTNESS OF BREATH OR WHEEZE Atorvastatin Calcium 40 mg 07/21/25 21:00 07/23/25 21:10 Atorvastatin Calcium 20 Mg Tablet PO 08/20/25 20:59 40 mg HS ERICH Administration Dextrose 50 ml 07/20/25 18:12 07/21/25 07:10 Dextrose 50%-Water Inj 50 Ml Syringe IV 08/19/25 18:11 50 ml Q15MIN PRN Administration BG <50 OR BG <70 & pt unresponsive Furosemide 80 mg 07/23/25 18:00 07/24/25 05:32 Furosemide Inj 10 Mg/Ml 4ml Vial IVP 08/22/25 17:59 80 mg On Hold: 07/24/25 07:12 BIDD ERICH Administration Gabapentin 100 mg 07/21/25 10:00 07/24/25 08:58 Gabapentin 100 Mg Capsule PO 08/20/25 09:59 100 mg QDAY ERICH Administration Glucagon 1 mg 07/20/25 18:12 Glucagon Inj 1 Mg Vial IM Q15MIN PRN BG <70, and no IV access Heparin Sodium (Porcine) 5,000 unit 07/20/25 22:00 07/24/25 05:33 Heparin Sod Inj 5000 Unit/Ml Vial SC 08/03/25 21:59 5,000 unit Q8HR ERICH Administration Insulin Degludec 20 unit 07/24/25 07:15 07/24/25 07:52 Insulin Degludec 5 Unit/0.05 Ml (Per 5 Units) SC 08/23/25 07:14 20 unit QDAY ERICH Administration Insulin Human Lispro 0 unit 07/20/25 21:00 07/24/25 12:13 Insulin Lispro (Admelog) 1 Unit/0.01 Ml Unit SC 08/19/25 20:59 3 unit ACHS ERICH Administration Protocol Insulin Human Lispro 5 unit 07/22/25 17:30 07/24/25 12:12 Insulin Lispro (Admelog) 1 Unit/0.01 Ml Unit SC 08/21/25 17:29 5 unit TIDWM ERICH Administration Metoprolol Succinate 50 mg 07/23/25 09:00 07/24/25 08:58 Metoprolol Succinate Xl 25 Mg Tabcr PO 08/22/25 08:59 50 mg QDAY ERICH Administration Ondansetron HCl 4 mg 07/20/25 18:20 Ondansetron Inj 2 Mg/Ml Inj 2 Ml IVP 08/19/25 18:19 Q6HR PRN NAUSEA OR VOMITING Protocol Sacubitril/Valsartan 1 tab 07/22/25 09:00 07/24/25 08:58 Sacubitril 24 Mg/Valsartan 26 Mg Tablet PO 08/21/25 08:59 1 tab BID ERICH Administration Plan Summary: Mr. 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 Cardiology consulted to establish care for heart failure. #Acute decompensated heart failure #Congestive systolic and diastolic heart failure with reduced ejection fraction, EF 25-30% Patient reported for the last 3 days that he has had progressive shortness of breath which has been worsening, endorses difficulty breathing while lying flat and reports waking up in the middle of the night 4-5 times with the feeling that he is drowning. Patient complains of shortness of breath on rest, reports that he has bilateral lower extremity swelling, Bilateral lower extremity edema noted, BNP 1120, chest x-ray shows mild vascular congestion. Echocardiogram 06/04/2025: 1. Left ventricle size is normal and systolic function is severely reduced. Estimated ejection fraction is 25-30%. There is grade III diastolic dysfunction. There is mild concentric hypertrophy noted. 2. Right ventricle chamber size is moderately enlarged and systolic function is mildly reduced. Estimated RVSP moderately elevated is 49 mmHg. 3. Flattening of the ventricular septum in mid to late systole consistent with right ventricular volume overload. 4. There is mild to moderate mitral valve regurgitation. 5. There is moderate tricuspid valve regurgitation. mild pulmonary regurgitation. 6. The left atrium is moderately enlarged. The right atrium is moderately enlarged. 7. There is no and trivial pericardial effusion. No tamponade. Recommendations: -Bemetanide 1mg po qd (Instruct the patient to take it bid if swelling with SOB), Entresto 24-26 po bid, Metoprolol 50mg po qd -Strict intake and output, daily weight, fluid restriction 1500 cc, low-sodium diet -Consider obtaining iron panel in a.m. -Keep potassium greater than 4 and magnesium greater than 2 at all times #NSTEMI type II versus type I, likely type II demand ischemia-Resolved Patient denies any chest pain. EKG on presentation shows sinus tachycardia rate 117, right bundle branch block. Troponin 0.440--> 0.355 Patient's underlying troponin elevation in setting of demand ischemia Recommendations: ?Monitor for chest pain #Hypertension -On metoprolol 50mg po qd. -Continue on with entresto 24-26 po bid #Hyperlipidemia -Lipid panel shows triglycerides 79, cholesterol 140, LDL 81, HDL 43, hemoglobin A1c 11.7, TSH 1.73, -ASCVD risk score 14.4%: Risk of cardiovascular event in next 10 years. -Prevent risk of cardiovascular disease events, A1c model: 27.55% 10-year total CVD risk, 10-year heart failure risk 19.6, 10-year coronary heart disease risk 7.77 percent, 10-year stroke risk 8.69% Plan -Continue Atorvastatin 40mg po qd. #Uncontrolled insulin-dependent diabetes mellitus, A1c 11.7 #Diabetic neuropathy #History of methamphetamine use Counseled extensively regarding the need to completely stop the methamphetamine use and to follow regularly with the primary care clinic and and follow-up with his systems eng for further evaluation of ischemic versus nonischemic cardiomyopathy as outpatient. If nonischemic cardiomyopathy diagnosed and does not improve with goal-directed medical therapy and patient will need ICD for prevention of sudden cardiac . Patient explained importance of following up regularly with doctors given his severe systolic congestive heart failure in the setting of methamphetamine abuse. #Elevated D-dimer Management as per primary team Thank you for the consult and allowing to participate in the care of the patient. Cardiology will continue to follow. Assessment and plan discussed with my attending physician Dr. Sheridan Lopes (PGY-1) - Internal medicine resident Attending Provider Attestation/Addendum I have personally seen and examined the patient separately on the above date of service and discussed the plan of care with the resident. I reviewed the resident Dr. Duran Lopes consultation progress note and agree with the resident findings and plan in the note above and have also edited the documentation to reflect my findings and plan. Ramon Swartz M.D. Interventional Cardiology
[2025-07-24] MEDS: Magnesium Sulfate 2 GM Ivpb 2 GM/50 ML BAG IV (08:57)
[2025-07-24] MEDS: GABAPENTIN 100 MG CAPSULE PO (08:58)
[2025-07-24] MEDS: METOPROLOL SUCCINATE XL 25 MG TABCR 50 MG PO (08:58)
--- NOTE | 2025-07-24 15:56 | PC.SS ---
Follow up note: Cardio recommendations pending. Pt will return home upon dc.
--- NOTE | 2025-07-24 16:25 | PD.RESDS ---
Planned Discharge Date 07/24/25 DS: Providers Provider Date of admission: 07/20/25 18:13 Primary care physician: Sirena Bethea MD Admitting Provider: Jessica Mccrary MD Attending Provider on Admission: Jessica Mccrary MD Consults: 07/20/25 18:17 Referral Wound Care Routine Comment: 07/20/25 18:26 Consult to Cardiology Routine Comment: CHF exacerbation Consulting Provider: Ramon Swartz 07/23/25 11:16 Referral OP Wound Healing Dept Routine Comment: Venous Stasis Dermatitis Attending Provider on DC: Jessica Mccrary MD Discharging Provider: Juan Jim DO DS: Diagnosis Problem List Completed Was Problem List Reviewed/Reconciled?: Yes Hospital Course Hospital Course Hospital course: Mr. 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 Patient complains of shortness of breath on rest, reports that he has bilateral lower extremity swelling, reported that he has recently ran out of his medication and was unable to see a stock letterer outpatient. On presentation patient's blood pressure 157/123, heart rate 114, respiratory rate 20, temp 98.0, O2 sat 98 on room air. ED labs pertinent for WBC 7.4, hemoglobin 14.0, platelet count 270, D-dimer 933, p creatinine 1.2, GFR greater than 60, glucose 499, A1c 11.7, osmolality 299, lactate 1.5, troponin. 0.440, BNP 1128, albumin 3.3, Pro-Trace negative, TSH 1.73, blood alcohol level negative. Chest x-ray on presentation shows mild vascular congestion, EKG on presentation shows sinus tachycardia, rate 117, right bundle branch block. Bilateral venous Doppler negative for DVT. Cardiology consulted for acute decompensated heart failure in setting of chronic systolic and diastolic heart failure. Patient was started on Diuresis with Lasix 40 mg IV twice daily, Home dose Coreg 6.25 mg p.o. twice daily resumed and later switched to metoprolol 25mg PO Qday and subsequently risen to 50mg. Started on Entresto 24-26 po bid once BP stable. Troponin trended down from 0.410 to 0.355. Patient is okay to be discharged with Bemetanide 1mg po qd. At the time of discharge, patient is medically stable and deemed safe to return to his/her previous state of living. Admission Diagnoses: #Acute hypoxic respiratory failure 2/2 #Acute on chronic HFrEF (25-30%), NYHA IV, stage D #Hyperglycemia #IDDM2 #Diabetic neuropathy #NSTEMI, likely type II_resolved #Hx of methamphetamine use #Elevated d-dimer Discharge Instructions: Please follow-up with your PCP within 1 week of discharge, and request to get referral to a new stock letterer. You have been started on: -Bumetanide 1 mg daily - Metoprolol succinate extended release 50 mg daily - Sacubitril-valsartan 24-26 mg twice daily - [employer] asuncion 3+ sensor and reader - We have changed the dose of your insulin degludec to 35 units daily We have discontinued carvedilol, doxycycline, lisinopril, melatonin, metformin, pioglitazone Continue taking all other medicines as prescribed -Recommended to take low-sodium diet including daily 2 L of fluid intake maximum. -Recommended to return back to emergency department if your symptoms persists or worsens. This case was discussed with my attending physician, Dr. Mccrary, and senior resident, Dr Wilkinson. Even though this this note was carefully revised there may still be minor errors in medical transcriptionist due to voice recognition software. Juan Jim, DO PGY I Senior Resident Attestation: I discussed with and supervised the network internship physician involved in the care of this patient. I personally saw and examined the patient and discussed the assessment and plan with the entire medicine team, including my attending. I agree with the discharge plan as documented above. Osiel Wilkinson MD PGY3 Internal Medicine Time Spent with Patient Time attestation: Total time spent providing and/or coordinating discharge services: 40 minutes Time spent: Greater than 30 minutes Exam Vital Signs Temp Pulse Resp BP Pulse Ox O2 Del Method O2 Flow Rate 97.6 F 97 14 123/89 H 97 Room Air 1 07/24/25 12:00 07/24/25 12:00 07/24/25 12:00 07/24/25 12:00 07/24/25 12:00 07/24/25 12:00 07/24/25 06:45 FiO2 2 07/23/25 04:00 Narrative Exam GENERAL: AOx3, no acute distress HEENT: mucous membranes moist, bilateral sclera, anicteric CARDIOVASCULAR: regular rate and rhythm, S1/S2 present, no murmurs appreciated PULMONARY: CTA ABDOMINAL: soft, non-tender, non-distended, no rebound/guarding, bowel sounds present EXTREMITIES: pitting edema bilaterally but improving (now 1+), chronic venous stasis dermatitis SKIN: warm and dry, intact, no rashes NEURO: CN II-XII grossly intact, no focal deficits, alert, following commands Discharge Plan Plan Patient Disposition: HOME (Self Care) Care Plan Goals: Please follow-up with your PCP within 1 week of discharge, and request to get referral to a new stock letterer. You have been started on: -Bumetanide 1 mg daily - Metoprolol succinate extended release 50 mg daily - Sacubitril-valsartan 24-26 mg twice daily - [employer]estyle asuncion 3+ sensor and reader - We have changed the dose of your insulin degludec to 35 units daily We have discontinued carvedilol, doxycycline, lisinopril, melatonin, metformin, pioglitazone Continue taking all other medicines as prescribed -Recommended to take low-sodium diet including daily 2 L of fluid intake maximum. -Recommended to return back to emergency department if your symptoms persists or worsens. Prescriptions/Referrals Prescriptions/Med Rec: New (DME) FreeStyle Asuncion 3 Plus Sensor Device See Rx Instructions .Route Qty: 2 3RF Rx Instructions: As directed (DME) FreeStyle Asuncion 3 [place] Misc See Rx Instructions .Route Qty: 1 0RF Rx Instructions: As directed bumetanide 1 mg tablet 1 mg PO QDAY Qty: 30 2RF sacubitril-valsartan 24-26 mg Tablet 1 tab PO BID 30 Days Qty: 60 2RF metoprolol succinate 50 mg tablet extended release 24 hr 50 mg PO QDAY Qty: 30 2RF Continued (DME) FreeStyle Asuncion 3 Plus Sensor Device See Rx Instructions .Route Qty: 1 3RF Rx Instructions: As directed (DME) pen needle, diabetic [Comfort EZ Pen [place]] 31 gauge x 1/4 needle See Rx Instructions .Route Qty: 100 3RF Rx Instructions: As directed Janumet 50-1,000 mg tablet 1 tab PO BID Rx Instructions: with food gabapentin 100 mg capsule 100 mg PO QDAY Jardiance 25 mg tablet 25 mg PO QDAY ammonium lactate 12 % cream 1 applic TOPICAL QDAY PRN (Reason: dry skin) Patient Comments: APPLY CREAM TOPICALLY TO AFFECTED AREA TWICE DAILY Changed insulin degludec 200 unit/mL (3 mL) insulin pen 35 unit subcut QDAY Qty: 9 2RF Discontinued metformin 1,000 mg tablet 1,000 mg PO BID Qty: 30 2RF melatonin 3 mg Tablet 3 mg PO HS PRN (Reason: Sleeplessness) Qty: 30 0RF carvedilol 3.125 mg Tablet 6.25 mg PO BIDWM Qty: 30 2RF doxycycline hyclate 100 mg Tablet 100 mg PO BID Qty: 22 0RF sacubitril-valsartan 24-26 mg Tablet 0.5 tab PO BID Qty: 30 1RF lisinopril 10 mg tablet 10 mg PO QDAY pioglitazone 45 mg tablet 45 mg PO QDAY Referrals: Sirena Bethea MD [Primary Care Provider, Internal Medicine] Patient/Caregiver Discharge Instructions Discharge Activity: activity as tolerated Education Materials: Diabetes and Heart Disease, Coping with Heart Failure, ED CHF Left Side, ED Diabetes with High Blood Sugar Print Language: Macedonian Stand Alone Forms: Pamela Award Info., Patient Portal Info Letter Discharge Order Discharge Orders: Discharge (Routine); Ordered 07/24/25 Ordered By: Osiel Wilkinson Quality Discharge Quality Measures VTE prophylaxis Attestestation Attestation I have seen and examined the patient. I was physically present for the william portions of the services provided including history, physical exam, diagnosis, treatment plans and orders. I agree with assessment and plan of care as documented by residents. Even though this this note was carefully revised there may still be minor errors in medical transcriptionist due to voice recognition software. Jessica Mccrary MD
== END 2025-07-24 18:25 | disposition home or self-care (01) | DRG 194 ==
LOC: SERX 15:40 → S2NX 07-21 08:00 → SERHOLD 07-22 09:27
PROVIDERS: Nurse Practitioner Family; Student in an Organized Health Care Education/Training Program; Admitting Provider Student in an Organized Health Care Education/Training Program; Emergency Provider Emergency Medicine; PCP Internal Medicine; Visit Provider Student in an Organized Health Care Education/Training Program
DX: I11.0 Hypertensive heart disease with heart failure (principal); I50.43 Acute on chronic combined systolic (congestive) and diastolic (congestive) heart failure; J96.01 Acute respiratory failure with hypoxia; E11.649 Type 2 diabetes mellitus with hypoglycemia without coma; E11.65 Type 2 diabetes mellitus with hyperglycemia; E11.40 Type 2 diabetes mellitus with diabetic neuropathy, unspecified; I21.A1 Myocardial infarction type 2; Z79.4 Long term (current) use of insulin; E78.5 Hyperlipidemia, unspecified; Z79.899 Other long term (current) drug therapy; Z87.891 Personal history of nicotine dependence
CPT/HCPCS: 36415; 36600; 71045; 80053; 80061; 80307; 80320; 81001; 82248; 82550; 82607; 82728; 82746; 82803; 83036; 83540; 83550; 83605; 83735; 83880; 84100; 84145; 84443; 84484; 85025; 85046; 85379; 85652; 86140; 87040; 87502; 87635; 93005; 93306; 93970; 94640; 96374; 99284; A9270; J1644; J1756; J1815; J1938; J2270; J3475; G0480